=== PATIENT | female | born 1940 | race Caucasian/White ===

== ENCOUNTER 2016-06-14 16:32 | Emergency (ER) | payer MEDICARE, OTHER ==
[2016-06-14] MEDS ORDERED: LIDOCAINE 1% INJ-PF (10 MG/ML) 30 ML SDV INJ ONE (20:46)
[2016-06-14] MEDS ORDERED: DIPH/PERTUSS(ACELL)/TETANUS VAC/PF 0.5 ML SYR (>=10YO) IM ONE (20:46)
--- NOTE | 2016-06-14 22:55 | ER Document Report ---
ED General - General Chief Complaint: Laceration Stated Complaint: FALL/FACIAL LACERATION Mode of Arrival: Medic Information source: Patient Notes: This is a 76-year-old female who presents after falling today. She states that she was at the bus stop awaiting her granddaughter and she tripped over the curb and fell forward onto her forehead. She has a laceration above her left eyebrow and contusion around her left eye. She denies any loss of consciousness. This fall occurred at about 3:30 today. She's had no nausea or vomiting. She has had no vision changes. Chest pain or palpitations. She states she simply tripped over the curb. She is uncertain about her tetanus status. TRAVEL OUTSIDE OF THE [place] IN LAST 30 DAYS: No - Related Data Allergies/Adverse Reactions: No Known Allergies Allergy (Unverified 04/17/15 10:35) Past Medical History - General Information source: Patient - Social History Smoking Status: Former Smoker Family History: Reviewed & Not Pertinent - Past Medical History Cardiac Medical History: Reports: Hx Hypercholesterolemia, Hx Hypertension Endocrine Medical History: Reports: Hx Diabetes Mellitus Type 2 Past Surgical History: Reports: Hx Breast Surgery - biopsy-no lymph involvment - Immunizations Hx Diphtheria, Pertussis, Tetanus Vaccination: Yes Review of Systems - Review of Systems Notes: REVIEW OF SYSTEMS: CONSTITUTIONAL : Denies fever, chills, or sweats. Denies recent illness. EENT: Denies eye, ear, throat, or mouth pain or symptoms. Denies nasal or sinus congestion. CARDIOVASCULAR: Denies chest pain. RESPIRATORY: Denies cough, cold, or chest congestion. Denies shortness of breath, difficulty breathing, or wheezing. GASTROINTESTINAL: Denies abdominal pain. Denies nausea, vomiting, or diarrhea. GENITOURINARY: Denies difficulty urinating, painful urination, burning, frequency, or blood in urine. MUSCULOSKELETAL: Denies neck or back pain or joint pain or swelling. SKIN: Denies rash or skin lesions. HEMATOLOGIC : Denies easy bruising or bleeding. LYMPHATIC: Denies swollen, enlarged glands. NEUROLOGICAL: Denies altered mental status or loss of consciousness. Mild headache as per history of present illness PSYCHIATRIC: Denies anxiety or stress or depression. ALL OTHER SYSTEMS REVIEWED AND NEGATIVE. Physical Exam - Vital signs Vitals: Temp Pulse Resp BP Pulse Ox 97.8 F 67 20 150/61 H 97 06/14/16 16:55 06/14/16 16:55 06/14/16 16:55 06/14/16 16:55 06/14/16 16:55 - Notes Notes: PHYSICAL EXAMINATION: GENERAL: Well-appearing, well-nourished and in no acute distress. HEAD: Left-sided forehead contusion with 3 cm linear laceration above left eyebrow. She also has soft tissue swelling and ecchymosis beneath her left orbit. EYES: Pupils equal round and reactive to light, extraocular movements intact, sclera anicteric, conjunctiva are normal. ENT: nares patent, oropharynx clear without exudates. Moist mucous membranes. NECK: Normal range of motion, supple without lymphadenopathy, no midline tenderness to palpation LUNGS: Breath sounds clear to auscultation bilaterally and equal. No wheezes rales or rhonchi. HEART: Regular rate and rhythm without murmurs ABDOMEN: Soft, nontender, normoactive bowel sounds. No guarding, no rebound. EXTREMITIES: Normal range of motion, no pitting or edema. No trauma NEUROLOGICAL: Cranial nerves grossly intact. Normal speech, normal gait. Normal sensory, motor, exam PSYCH: Normal mood, normal affect. Course - Vital Signs Vital signs: Temp Pulse Resp BP Pulse Ox 98.7 F 62 16 125/61 98 06/14/16 23:34 06/14/16 23:34 06/14/16 23:34 06/14/16 23:34 06/14/16 23:34 Procedures - Laceration/Wound Repair Left Anterior Head Time completed: 22:20 Wound length (cm): 3 Wound's Depth, Shape: Superficial Laceration pre-procedure: Betadine prep applied, Shur-Clens applied Anesthetic type: 1% Lidocaine Volume Anesthetic (mLs): 1 Wound explored: Clean Irrigated w/ Saline (mLs): 40 Wound Repaired With: Dermabond Complications: No Adult Head Front/Back picture: 1 - 3 cm superficial linear laceration Discharge - Discharge Clinical Impression: Forehead contusion Qualifiers: Encounter type: initial encounter Qualified Code(s): S00.83XA - Contusion of other part of head, initial encounter Forehead laceration Qualifiers: Encounter type: initial encounter Qualified Code(s): S01.81XA - Laceration without foreign body of other part of head, initial encounter Fall involving sidewalk curb Qualifiers: Encounter type: initial encounter Qualified Code(s): W10.1XXA - Fall (on)(from ) sidewalk curb, initial encounter Condition: Stable Disposition: HOME, SELF-CARE Additional Instructions: Dermabond (Skin Adhesive Closure) Skin adhesive (such as Dermabond) is a quick-drying glue that remains slightly flexible while it holds wound edges together. It can substitute for stitches on some cuts. The film will usually fall off the skin after 5 to 10 days. Keep the wound area clean and dry. Do not soak or scrub the wound. Don't swim. You can shower briefly after 24 hours. Gently blot the area dry with a soft towel. Don't apply ointments. If there is a dressing, change it immediately if it gets wet. Do not place tape directly over the adhesive film, because the tape may pull the film off your skin as you remove it. Don't bump the wound area. If there's risk of injury, keep the area well- padded. Avoid stretching of the skin. Do not scratch or pick at the adhesive film. Avoid prolonged exposure to sunlight or tanning lamps. Return if there is increasing pain, swelling, redness, or drainage, or if the wound edges seem to open or separate. Contusion Your injury has resulted in a contusion -- a crushing of the deep tissues. No injury to important structures was detected during the physician's exam. Contusions vary in the amount of pain they cause, and in the length of time required for healing. Typically, the area will become bruised, and will remain painful to touch for two or three weeks. However, most patients are back to working and playing within a few days. After the initial period of rest and cold-packs, your symptoms (together with the doctor's recommendations) will determine how rapidly you can get back to full activity. Usually this means "do what feels okay, but don't do things that hurt." If re-examination was recommended, it's important to follow up as instructed. Call the doctor or return any time if pain increases, if swelling becomes severe, if you develop numbness or weakness in an injured extremity, or if any other alarming symptoms occur. TETANUS IMMUNIZATION GIVEN: You have been given an immunization against tetanus. Please record this in your records. In general, a booster is needed only once every 10 years. The tetanus shot protects against tetanus or "lockjaw," which is a complication of certain wound infections (the tetanus shot cannot protect against the actual infection). The immunization site may become warm and red due to local reaction. If this occurs, apply warm compresses and take aspirin or ibuprofen to reduce inflammation and discomfort. Return for evaluation if the reaction becomes severe. If you have been referred to another physician for follow-up care, call that physicians office for an appointment as you were instructed. If you experience a significant change in your laceration, or if you are concerned there may be an infection (swelling, redness, drainage, increasing tenderness, red streaks, tender lumps in the armpit or groin above the laceration, or fever) , return to the Emergency Department immediately re-evaluation.
[2016-06-14 23:35] VITALS: BP 125/61
== END 2016-06-14 23:35 | disposition home or self-care (01) ==
LOC: ER 16:32
PROC: 0HQ1XZZ Repair Face Skin, External Approach (ICD-10-PCS; principal; 2016-06-14)
DX: S00.83XA Contusion of other part of head, initial encounter (principal); S01.81XA Laceration without foreign body of other part of head, initial encounter; W10.1XXA Fall (on)(from) sidewalk curb, initial encounter
CPT/HCPCS: 70450; 70486; 90471; 90715; 99283

== ENCOUNTER → 2016-08-23 | Outpatient (CLI) | payer MEDICARE, OTHER ==
[2016-08-23 10:33] LABS: ABSOLUTE EOSINOPHILS # (AUTO) 0.2 10^3/uL (0.0-0.6); ABSOLUTE MONOCYTES (AUTO) 0.4 10^3/uL (0.1-1.4); ABSOLUTE NEUT (AUTO) 4.8 10^3/uL (1.7-8.2); BASOPHILS % (AUTO) 0.1 % (0-2); EOSINOPHILS % (AUTO) 2.2 % (0-6); HEMATOCRIT 31.2 % (36.0-47.0); HEMOGLOBIN 10.4 g/dL (12.0-15.5); MEAN CORPUSCULAR HEMOGLOBIN 30.9 pg (27.0-33.4); MEAN CORPUSCULAR HGB CONC 33.4 g/dL (32.0-36.0); MEAN CORPUSCULAR VOLUME 93 fl (80-97); MONOCYTES % (AUTO) 5.9 % (3-13); RED BLOOD COUNT 3.37 10^6/uL (3.72-5.28); RED CELL DISTRIBUTION WIDTH 15.7 % (11.5-14.0); SEGMENTED NEUTROPHILS % (AUTO) 64.8 % (42-78); WHITE BLOOD COUNT 7.3 10^3/uL (4.0-10.5)
[2016-08-23 10:58] LABS: ALANINE AMINOTRANSFERASE 37 U/L (9-52); ALBUMIN 3.6 g/dL (3.5-5.0); ALKALINE PHOSPHATASE 38 U/L (38-126); ANION GAP 13 (5-19); ASPARTATE AMINO TRANSFERASE 47 U/L (14-36); BILIRUBIN,DIRECT 0.2 mg/dL (0.0-0.4); BILIRUBIN,TOTAL 0.5 mg/dL (0.2-1.3); BLOOD UREA NITROGEN 25 mg/dL (7-20); CALCIUM 9.8 mg/dL (8.4-10.2); CARBON DIOXIDE 25 mmol/L (22-30); CHLORIDE 103 mmol/L (98-107); CHOLESTEROL 127.68 mg/dL (0-200); CREATININE RESULT 1.19 mg/dL (0.52-1.25); Direct HDL 19 mg/dL (>40); GLUCOSE 96 mg/dL (75-110); POTASSIUM 5.3 mmol/L (3.6-5.0); SODIUM 140.9 mmol/L (137-145); TOTAL PROTEIN 6.3 g/dL (6.3-8.2); TRIGLYCERIDES 230 mg/dL (<150)
[2016-08-23 11:10] LABS: DIRECT LDL 61 mg/dL (<100)
[2016-08-24 11:40] LABS: CREATININE URINE 59.8 mg/dL (Not Estab.); MICROALBUMIN URINE 95.9 ug/mL (Not Estab.)
== END ==
LOC: OD 09:22
PROVIDERS: ATTEND Family Medicine Geriatric Medicine
DX: E11.9 Type 2 diabetes mellitus without complications (principal); I10 Essential (primary) hypertension; E78.5 Hyperlipidemia, unspecified; Z79.899 Other long term (current) drug therapy
CPT/HCPCS: 36415; 80053; 80061; 82043; 82570; 83036; 84443; 85025

== ENCOUNTER → 2016-08-30 | Outpatient (CLI) | payer MEDICARE, OTHER | LOC: OD 09:45 | PROVIDERS: ATTEND Family Medicine Geriatric Medicine | DX: D64.9 Anemia, unspecified (principal); Z79.899 Other long term (current) drug therapy | CPT/HCPCS: 36415; 82728; 83540; 83550; 84466; 85045 ==

== ENCOUNTER → 2016-12-14 | Outpatient (CLI) | payer MEDICARE, OTHER ==
--- NOTE | 2016-12-14 11:18 | RADIOLOGY REPORT (SQ) ---
EXAM DESCRIPTION: SHOULDER RIGHT 2 OR MORE VIEWS COMPLETED DATE/TIME: 12/14/2016 11:00 am REASON FOR STUDY: RIGHT SHOULDER PAIN M25.511 PAIN IN RIGHT SHOULDER COMPARISON: None. NUMBER OF VIEWS: Three views. TECHNIQUE: Internal rotation, external rotation, and Y view images acquired of the right shoulder. LIMITATIONS: None. FINDINGS: MINERALIZATION: Normal. BONES: No acute fracture or dislocation. No worrisome bone lesions. No significant osteophytes. GLENOHUMERAL JOINT: No significant findings. ACROMIOCLAVICULAR JOINT: No large osteophytes. SOFT TISSUES: No calcifications. VISUALIZED RIBS, SPINE, AND LUNG: No other significant finding. OTHER: No other significant finding. IMPRESSION: NEGATIVE STUDY OF THE RIGHT SHOULDER. NO EXPLANATION FOR PAIN. TECHNICAL DOCUMENTATION: JOB ID: [id number] [employer]- All Rights Reserved
== END ==
LOC: OD 10:48
PROVIDERS: ATTEND Family Medicine Geriatric Medicine
DX: M25.511 Pain in right shoulder (principal)

== ENCOUNTER → 2017-01-18 | Outpatient (CLI) | payer MEDICARE, OTHER ==
--- NOTE | 2017-01-18 12:12 | RADIOLOGY REPORT (SQ) ---
EXAM DESCRIPTION: SACRUM AND COCCYX COMPLETED DATE/TIME: 01/18/2017 11:27 am REASON FOR STUDY: SPONDYLOLISTHESIS, LUMBAR REGION,LOW BACK PAIN M54.5 LOW BACK PAIN M43.16 SPONDY LOLISTHESIS, LUMBAR REGION COMPARISON: None. NUMBER OF VIEWS: Three views. TECHNIQUE: AP, lateral, and tilt views of the sacrum and coccyx. LIMITATIONS: None. FINDINGS: MINERALIZATION: Normal. BONES: No acute fracture or dislocation. No worrisome bone lesions. SOFT TISSUES: No soft tissue swelling. No foreign body. OTHER: No other significant finding. IMPRESSION: NEGATIVE STUDY OF THE SACRUM AND COCCYX. TECHNICAL DOCUMENTATION: JOB ID: [id number] [employer]- All Rights Reserved
--- NOTE | 2017-01-18 12:12 | RADIOLOGY REPORT (SQ) ---
EXAM DESCRIPTION: LUMBAR SPINE COMPLETE COMPLETED DATE/TIME: 01/18/2017 11:27 am REASON FOR STUDY: SPONDYLOLISTHESIS, LUMBAR REGION,LOW BACK PAIN M54.5 LOW BACK PAIN M43.16 SPONDY LOLISTHESIS, LUMBAR REGION COMPARISON: None. NUMBER OF VIEWS: Five views including obliques. TECHNIQUE: AP, lateral, oblique, and sacral radiographic images acquired of the lumbar spine. LIMITATIONS: None. FINDINGS: MINERALIZATION: Normal. SEGMENTATION: Normal. No transitional anatomy. ALIGNMENT: 6 mm anterolisthesis of L4 on L5. VERTEBRAE: Maintained height. No fracture or worrisome bone lesion. DISCS: Multilevel disc space narrowing with osteophytes. POSTERIOR ELEMENTS: Pedicles and facets are intact. No pars defect or posterior arch defects. Facet arthropathy is present. HARDWARE: None in the spine. PARASPINAL SOFT TISSUES: Normal. PELVIS: Intact as visualized. No fractures or worrisome bone lesions. SI joints intact. OTHER: No other significant finding. 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 MULTILEVEL DEGENERATIVE DISC DISEASE AND FACET ARTHROPATHY. TECHNICAL DOCUMENTATION: JOB ID: [id number] [employer]- All Rights Reserved
== END ==
LOC: OD 11:03
PROVIDERS: ATTEND Family Medicine Geriatric Medicine
DX: M43.16 Spondylolisthesis, lumbar region (principal); M54.5 Low back pain
CPT/HCPCS: 72110; 72220

== ENCOUNTER → 2017-01-24 | Outpatient (CLI) | payer MEDICARE, OTHER ==
--- NOTE | 2017-01-24 12:29 | WOMENS IMAGING REPORT ---
EXAM DESCRIPTION: BILAT SCREENING MAMMO W/CAD COMPLETED DATE/TIME: 01/24/2017 10:40 am REASON FOR STUDY: ROUTINE SCREENING; Z12.31 Z12.31 ENCNTR SCREEN MAMMOGRAM FOR MALIGNANT NEOPLASM O F WINIFRED COMPARISON: 2012, 2013 outside facility TECHNIQUE: Standard craniocaudal and mediolateral oblique views of each breast recorded using [employer] acquisition. LIMITATIONS: None. FINDINGS: No masses, calcifications or architectural distortion. No areas of suspicion. Read with the assistance of CAD. .[facility] - R2 Cenova Version 1.3 .[facility] Imaging - R2 Cenova Version 1.3 .[facility] Imaging - R2 Cenova Version 2.4 .[facility] [place] R2 Cenova Version 2.4 .[facility] - R2 [employer] Version 9.2 IMPRESSION: NORMAL MAMMOGRAM. BIRADS 1. BREAST DENSITY: a. The breasts are almost entirely fatty. BIRAD: 1 NEGATIVE RECOMMENDATION: ROUTINE SCREENING COMMENT: The patient has been notified of the results by letter per SA requirements. Additional no tification policies are in place for contacting patient with suspicious or incomplete findings. Quality ID #[id number]: The [employer] recommends an annual screening mammogram for women aged 40 years or over. This facility utilizes a reminder system to ensure that all patients receive reminder letters, and/or direct phone calls for appointments. This includes reminders for routine scr eening mammograms, diagnostic mammograms, or other Breast Imaging Interventions when appropriate. Th is patient will be placed in the appropriate reminder system. The [employer] (ACR) has developed recommendations for screening MRI of the breast s in certain patient populations, to be used in conjunction with mammography. Breast MRI surveillanc e may be appropriate for women with more than 20% lifetime risk of developing breast cancer as deter mined by genetic testing, significant family history of the disease, or history of mantle radiation f or Hodgkins Disease. ACR Practice Guidelines 2008. TECHNICAL DOCUMENTATION: FINDING NUMBER: (1) ASSESSMENT: (1) JOB ID: [id number] [employer]- All Rights Reserved
== END ==
LOC: WI 09:57
PROVIDERS: ATTEND Family Medicine Geriatric Medicine
DX: Z12.31 Encounter for screening mammogram for malignant neoplasm of breast (principal)
CPT/HCPCS: 77067; G0202

== ENCOUNTER → 2017-01-31 | Outpatient (CLI) | payer MEDICARE, OTHER ==
--- NOTE | 2017-01-31 18:04 | RADIOLOGY REPORT (SQ) ---
EXAM DESCRIPTION: MRI LUMBAR SPINE WITHOUT COMPLETED DATE/TIME: 01/31/2017 2:20 pm REASON FOR STUDY: SPONDYLOLISTHESIS, SITE UNSPECIFIED M43.10 SPONDYLOLISTHESIS, SITE UNSPECIFIED COMPARISON: Radiographs 01/18/2017 TECHNIQUE: Sagittal and Axial imaging includes T1, T2, STIR and gradient echo sequences. Coronal T2 imaging. LIMITATIONS: None. FINDINGS: VISUALIZED UPPER ABDOMEN: Limited evaluation. No acute or suspicious findings suggested. SEGMENTATION: No transitional anatomy. The lowest well-developed disc space is labeled L5-S1. ALIGNMENT: There is grade 1 anterolisthesis of L4 on L5. VERTEBRAE: Intact. BONE MARROW: There are mild Modic changes in the vertebral endplates at L2-3, L3-4, and L4-5. DISC SIGNAL: Decreased signal intensity is seen L2-S1. These disc spaces are narrowed. POSTERIOR ELEMENTS: Generally intact. Pars defects are suggested at L4. HARDWARE: None in the spine. CORD AND CONUS: Normal in size and signal intensity. Conus at L1. SOFT TISSUES: No aortic aneurysm seen. No bulky retroperitoneal adenopathy or mass. No paraspinal mas s or fluid. L1-L2: No significant spinal stenosis or exit foraminal stenosis. L2-L3: Mild concentric disc bulging with no significant central canal or foraminal stenosis L3-L4: Moderate concentric disc bulging with mild narrowing of the inferior recesses of the neural fo ramina bilaterally. No significant central canal stenosis. L4-L5: There is unroofing of the disc secondary to anterolisthesis. There is narrowing of the inferi or recesses of the neural foramina bilaterally, left more than right. Moderate foraminal stenosis. Moderate central canal stenosis. L5-S1: No significant spinal stenosis or exit foraminal stenosis. LOWER THORACIC: Incompletely imaged. No stenosis seen. SACRUM: Visualized upper sacrum intact. OTHER: No other significant findings. IMPRESSION: 1. Anterolisthesis of L4 on L5 with suggestion of bilateral pars defects. 2. Multilevel disc bulge with foraminal and central canal stenoses as described above. The most sig nificant findings are at L4-5. TECHNICAL DOCUMENTATION: JOB ID: [id number]- All Rights Reserved
== END ==
LOC: RAD 13:18
PROVIDERS: ATTEND Family Medicine
DX: M43.10 Spondylolisthesis, site unspecified (principal)
CPT/HCPCS: 72148

== ENCOUNTER → 2017-03-09 | Outpatient (CLI) | payer MEDICARE, OTHER ==
--- NOTE | 2017-03-09 13:39 | RADIOLOGY REPORT (SQ) ---
EXAM DESCRIPTION: KNEE RIGHT 4 VIEWS COMPLETED DATE/TIME: 03/09/2017 1:02 pm REASON FOR STUDY: PAIN IN RIGHT KNEE M25.561 PAIN IN RIGHT KNEE COMPARISON: None. NUMBER OF VIEWS: Four views. TECHNIQUE: AP, lateral, and both oblique radiographic images acquired of the right knee. LIMITATIONS: None. FINDINGS: MINERALIZATION: Normal. BONES: No acute fracture or dislocation. No worrisome bone lesions. JOINT: Total knee replacement. SOFT TISSUES: No soft tissue swelling. No radio-opaque foreign body. OTHER: No other significant finding. IMPRESSION: Total knee replacement with no acute abnormality. TECHNICAL DOCUMENTATION: JOB ID: [id number] [employer]- All Rights Reserved
== END ==
LOC: OD 12:48
PROVIDERS: ATTEND Family Medicine Geriatric Medicine
DX: M25.561 Pain in right knee (principal); Z96.653 Presence of artificial knee joint, bilateral

== ENCOUNTER → 2017-03-24 | Day surgery (SDC) | payer MEDICARE, OTHER ==
[~2017-03-24] MED LIST: BUPIVACAINE HCL 0.5 % INJ/PF 30 ML SDV ONE
--- NOTE | 2017-03-24 12:53 | Operative Report ---
PREOPERATIVE DIAGNOSIS: Spondylolisis without myopathy or radiculopathy M47.818 POSTOPERATIVE DIAGNOSIS:Spondylolisis without myopathy or radiculopathy M47.818 PROCEDURE: 1. Radiofrequency Ablation of left L5 dorsal Ramus 2. Sacroiliac Joint Ablation - Lateral Branches of left S1, S2, S3 DATE OF PROCEDURE: March 24, 2017 ANESTHESIA: Local COMPLICATIONS: None CONSENT: A full description of the procedure was provided including benefits as well as possible complications. All questions were answered and informed consent was given and signed. ASA guidelines for fasting were verified prior to sedation. PROCEDURE IN DETAIL The patient was brought into the fluoroscopy suite and carefully assisted into the prone position on the fluoroscopy table and allowed to adjust to a position of comfort. A grounding pad was placed on the right thigh. The low back and buttocks were widely prepped with a chloraprep solution, allowed to air dry and draped in standard sterile surgical fashion. Local anesthesia was provided by 12 mL of 1 % lidocaine delivered with a 25 g needle. PROCEDURE #1: Radiofrequency Ablation of Dorsal Ramus of left L5. A 17g 100mm radiofrequency introducer needle was placed to the planned anatomic target, guided with intermittent fluoroscopy with a perpendicular approach, to terminally place at the left sacral ala. The stylets were removed and the radiofrequency probes with a 4mm active tip were then inserted. Needle tip position of the probes were verified in the AP, oblique, and lateral views. At each site, the medial branch nerve was stimulated at 2Hz to a maximum of 1- 2volts determined to finalize safe needle and electrode placement. The patient was awake and responsive during this portion of the procedure. Each target was anesthetized with 2mL of 2 % Sensorcaine anesthesia for lesioning and then each target was lesioned at 80 degrees Celsius for 2 minutes and 30 seconds. Tissue impedences were noted to be between 250 and 500 Ohms. PROCEDURE #2: Radiofrequency Ablation of left S1, S2, S3 Lateral Branches Using the AP fluoroscopic view for visualization of the lateral PSFA as defined by the pre-placed 27-gauge Quincke needles, appropriate skin starting positions were defined. Using the PSFA as a "clock-face", the positions were: S1; Right = 1 oclock, 3 oclock and 5 oclock S2; Right = 1 oclock, 3 oclock and 5 oclock S3; Right = 1 oclock, 5 oclock Using fluoroscopic guidance, a 17g introducer needle was inserted sequentially onto the target positions described above until the introducer tip touched the bony surface of the sacrum. The stylet was withdrawn from the introducer and the radiofrequency probe with a 4 mm active tip was fully inserted into the introducer. A lateral view was obtained for standard reference. At each of the targets, needle placement was verified with the use of multi-planar fluoroscopy. The needle tip position was approximately 7 - 10mm lateral to the PSFA as determined by using an Epsilon ruler. At each site, the lateral branch nerve was stimulated at 2 Hz to a maximum of 1- 2 volts determined to finalize safe needle and electrode placement. The patient was awake and responsive during this portion of the procedure. Each target was anesthetized with 2 mL of 2 % Sensorcaine anesthesia for lesioning and then each target was lesioned at 80 degrees Celsius for 2 minutes and 30 seconds. Tissue impedences were noted to be between 250- 500 Ohms. At the conclusion of the lesioning the needles were removed and bandages placed over the needle placement sites and the patient returned to the supine position on a stretcher and transported to the recovery room without hemodynamic, neurologic, or allergic reactions. Fluoroscopic images were printed for hard copy recording and digitally archived. FLUOROSCOPIC INTERPRETATION: Appropriate epidurogram obtained. Appropriate lesioning of the 10 targets noted. POST PROCEDURE EVALUATION: The patient was comfortable in the recovery room. The patient is aware that pain may worsen before remitting and 4 6 weeks may be required prior to the onset of pain relief. IMPRESSION: 1. Technically successful sacral lateral branch, lumbar dorsal ramus for denervation from L5-S3 on the left without complication. 2. RTC in 2 weeks. 3. Estimated Blood Loss: None 4. Fluoroscopy time: 30 seconds
== END ==
LOC: RAD 12:27
PROVIDERS: ATTEND Family Medicine
PROC: 3E0T3TZ Introduction of Destructive Agent into Peripheral Nerves and Plexi, Percutaneous Approach (ICD-10-PCS; principal; 2017-03-24)
DX: M47.816 Spondylosis without myelopathy or radiculopathy, lumbar region (principal); M47.818 Spondylosis without myelopathy or radiculopathy, sacral and sacrococcygeal region
CPT/HCPCS: 64635

== ENCOUNTER → 2017-06-03 | Outpatient (CLI) | payer MEDICARE, OTHER ==
[2017-06-03 10:45] LABS: ALANINE AMINOTRANSFERASE 28 U/L (9-52); ANION GAP 15 (5-19); ASPARTATE AMINO TRANSFERASE 34 U/L (14-36); BLOOD UREA NITROGEN 27 mg/dL (7-20); CALCIUM 10.4 mg/dL (8.4-10.2); CARBON DIOXIDE 26 mmol/L (22-30); CHLORIDE 101 mmol/L (98-107); GLUCOSE 104 mg/dL (75-110); POTASSIUM 5.1 mmol/L (3.6-5.0); SODIUM 141.8 mmol/L (137-145)
[2017-06-04 09:45] LABS: CHOLESTEROL 164.73 mg/dL (0-200); TRIGLYCERIDES 255 mg/dL (<150)
[2017-06-04 09:56] LABS: DIRECT LDL 107 mg/dL (<100)
[2017-06-04 11:38] LABS: MICROALBUMIN URINE 76.6 ug/mL (Not Estab.)
== END ==
LOC: OD 09:19
PROVIDERS: ATTEND Family Medicine Geriatric Medicine
DX: E11.21 Type 2 diabetes mellitus with diabetic nephropathy (principal); I10 Essential (primary) hypertension; E78.5 Hyperlipidemia, unspecified; Z79.899 Other long term (current) drug therapy
CPT/HCPCS: 36415; 80048; 80061; 82043; 82570; 83036; 84450; 84460

== ENCOUNTER → 2017-06-08 | Outpatient (CLI) | payer MEDICARE, OTHER ==
[2017-06-08 10:06] LABS: ANION GAP 13 (5-19); BLOOD UREA NITROGEN 24 mg/dL (7-20); CALCIUM 9.9 mg/dL (8.4-10.2); CARBON DIOXIDE 26 mmol/L (22-30); CHLORIDE 102 mmol/L (98-107); GLUCOSE 112 mg/dL (75-110); POTASSIUM 5.2 mmol/L (3.6-5.0)
== END ==
LOC: OD 09:00
PROVIDERS: ATTEND Family Medicine Geriatric Medicine
DX: E83.52 Hypercalcemia (principal); E87.6 Hypokalemia
CPT/HCPCS: 36415; 80048; 83970

== ENCOUNTER → 2017-06-13 | Outpatient (CLI) | payer MEDICARE, OTHER ==
[2017-06-13 13:52] LABS: APPEARANCE,URINE CLEAR; BILIRUBIN,URINE NEGATIVE (NEGATIVE); COLOR,URINE STRAW; GLUCOSE, URINE NEGATIVE (NEGATIVE); KETONES,URINE NEGATIVE (NEGATIVE); LEUKOCYTE ESTERASE,URINE NEGATIVE (NEGATIVE); NITRITE,URINE NEGATIVE (NEGATIVE); PROTEIN,URINE NEGATIVE (NEGATIVE); UROBILINOGEN,URINE NEGATIVE mg/dL (<2.0)
[2017-06-13 13:55] LABS: HEMATOCRIT 34.1 % (36.0-47.0); HEMOGLOBIN 11.6 g/dL (12.0-15.5); MEAN CORPUSCULAR HEMOGLOBIN 31.9 pg (27.0-33.4); MEAN CORPUSCULAR VOLUME 94 fl (80-97); PLATELET COUNT 376 10^3/uL (150-450); RED BLOOD COUNT 3.63 10^6/uL (3.72-5.28); RED CELL DISTRIBUTION WIDTH 14.2 % (11.5-14.0); WHITE BLOOD COUNT 6.4 10^3/uL (4.0-10.5)
[2017-06-13 14:11] LABS: ANION GAP 12 (5-19); BLOOD UREA NITROGEN 21 mg/dL (7-20); CALCIUM 10.2 mg/dL (8.4-10.2); CARBON DIOXIDE 27 mmol/L (22-30); CHLORIDE 103 mmol/L (98-107); GLUCOSE 85 mg/dL (75-110); POTASSIUM 4.7 mmol/L (3.6-5.0); SODIUM 141.6 mmol/L (137-145)
[2017-06-13 14:22] LABS: UR PRO/CREAT RATIO RESULT 0.6 mg/mg (0.0-0.2); URINE PROTEIN 26.4 mg/dL (<12)
== END ==
LOC: OD 12:38
PROVIDERS: ATTEND Internal Medicine Nephrology
DX: E11.22 Type 2 diabetes mellitus with diabetic chronic kidney disease (principal); I12.9 Hypertensive chronic kidney disease with stage 1 through stage 4 chronic kidney disease, or unspecified chronic kidney disease; N18.9 Chronic kidney disease, unspecified; R80.9 Proteinuria, unspecified; M10.00 Idiopathic gout, unspecified site; E83.52 Hypercalcemia; Z79.899 Other long term (current) drug therapy
CPT/HCPCS: 36415; 80048; 81001; 82570; 84132; 84156; 84550; 85027

== ENCOUNTER → 2017-09-01 | Outpatient (CLI) | payer MEDICARE, OTHER ==
[2017-09-01 12:02] LABS: ALANINE AMINOTRANSFERASE 27 U/L (9-52); ASPARTATE AMINO TRANSFERASE 29 U/L (14-36); CHOLESTEROL 153.77 mg/dL (0-200); TRIGLYCERIDES 292 mg/dL (<150)
[2017-09-01 12:13] LABS: DIRECT LDL 83 mg/dL (<100)
[2017-09-01 12:16] LABS: VLDL CHOLESTEROL 58.4 mg/dL (10-31)
== END ==
LOC: OD 09:35
PROVIDERS: ATTEND Family Medicine Geriatric Medicine
DX: E78.5 Hyperlipidemia, unspecified (principal); Z79.899 Other long term (current) drug therapy
CPT/HCPCS: 36415; 80061; 84450; 84460

== ENCOUNTER → 2017-09-08 | Outpatient (CLI) | payer MEDICARE, OTHER ==
--- NOTE | 2017-09-08 12:45 | RADIOLOGY REPORT (SQ) ---
EXAM DESCRIPTION: ANKLE LEFT COMPLETE COMPLETED DATE/TIME: 09/08/2017 11:54 am REASON FOR STUDY: PAIN IN LEFT ANKLE AND JOINTS OF LEFT FOOT M25.572 PAIN IN LEFT ANKLE AND JOINTS OF LEFT FOOT COMPARISON: None. NUMBER OF VIEWS: Three views. TECHNIQUE: AP, lateral, and oblique radiographic images acquired of the left ankle. LIMITATIONS: None. FINDINGS: MINERALIZATION: Normal. BONES: No acute fracture or dislocation. No worrisome bone lesions. JOINTS: No effusions. SOFT TISSUES: No soft tissue swelling. No foreign body. OTHER: Plantar spurring is identified. IMPRESSION: NO RADIOGRAPHIC EVIDENCE OF ACUTE INJURY. Other findings as noted above. TECHNICAL DOCUMENTATION: JOB ID: [id number] [employer]- All Rights Reserved Reading location - IP/workstation name: [email or web address]
== END ==
LOC: OD 11:41
PROVIDERS: ATTEND Family Medicine Geriatric Medicine
DX: M25.572 Pain in left ankle and joints of left foot (principal)

== ENCOUNTER → 2017-10-04 | Outpatient (CLI) | payer MEDICARE, OTHER ==
[2017-10-04 10:10] LABS: HEMATOCRIT 33.3 % (36.0-47.0); HEMOGLOBIN 11.1 g/dL (12.0-15.5); MEAN CORPUSCULAR HEMOGLOBIN 31.2 pg (27.0-33.4); MEAN CORPUSCULAR HGB CONC 33.3 g/dL (32.0-36.0); MEAN CORPUSCULAR VOLUME 94 fl (80-97); PLATELET COUNT 352 10^3/uL (150-450); RED BLOOD COUNT 3.55 10^6/uL (3.72-5.28); RED CELL DISTRIBUTION WIDTH 14.3 % (11.5-14.0); WHITE BLOOD COUNT 4.2 10^3/uL (4.0-10.5)
[2017-10-04 10:49] LABS: ANION GAP 14 (5-19); BLOOD UREA NITROGEN 31 mg/dL (7-20); CARBON DIOXIDE 26 mmol/L (22-30); CHLORIDE 104 mmol/L (98-107); GLUCOSE 118 mg/dL (75-110); POTASSIUM 5.2 mmol/L (3.6-5.0); SODIUM 144.3 mmol/L (137-145); URIC ACID 4.8 mg/dL (2.5-7.5)
[2017-10-04 11:23] LABS: APPEARANCE,URINE CLEAR; BILIRUBIN,URINE NEGATIVE (NEGATIVE); COLOR,URINE STRAW; GLUCOSE, URINE NEGATIVE (NEGATIVE); KETONES,URINE NEGATIVE (NEGATIVE); LEUKOCYTE ESTERASE,URINE TRACE (NEGATIVE); NITRITE,URINE NEGATIVE (NEGATIVE); PROTEIN,URINE NEGATIVE (NEGATIVE); URINE SPECIFIC GRAVITY 1.008; UROBILINOGEN,URINE NEGATIVE mg/dL (<2.0)
[2017-10-05 11:40] LABS: CREATININE URINE 25.3 mg/dL (Not Estab.); MICROALBUMIN URINE 55.8 ug/mL (Not Estab.)
== END ==
LOC: OD 08:27
PROVIDERS: ATTEND Internal Medicine Nephrology
DX: N18.3 Chronic kidney disease, stage 3 (moderate) (principal); R80.9 Proteinuria, unspecified; E11.9 Type 2 diabetes mellitus without complications; M10.00 Idiopathic gout, unspecified site
CPT/HCPCS: 36415; 80048; 81001; 82043; 82570; 84550; 85027

== ENCOUNTER → 2017-11-16 | Outpatient (CLI) | payer MEDICARE, OTHER ==
[2017-11-16 10:23] LABS: ABSOLUTE BASOPHILS # (AUTO) 0.1 10^3/uL (0.0-0.2); ABSOLUTE EOSINOPHILS # (AUTO) 0.1 10^3/uL (0.0-0.6); ABSOLUTE LYMPHOCYTES (AUTO) 1.4 10^3/uL (0.5-4.7); ABSOLUTE MONOCYTES (AUTO) 0.3 10^3/uL (0.1-1.4); ABSOLUTE NEUT (AUTO) 3.5 10^3/uL (1.7-8.2); BASOPHILS % (AUTO) 1.1 % (0-2); EOSINOPHILS % (AUTO) 2.5 % (0-6); HEMATOCRIT 32.7 % (36.0-47.0); LYMPHOCYTES % (AUTO) 26.2 % (13-45); MEAN CORPUSCULAR HEMOGLOBIN 31.6 pg (27.0-33.4); MEAN CORPUSCULAR HGB CONC 33.7 g/dL (32.0-36.0); MEAN CORPUSCULAR VOLUME 94 fl (80-97); MONOCYTES % (AUTO) 6.1 % (3-13); PLATELET COUNT 363 10^3/uL (150-450); RED BLOOD COUNT 3.49 10^6/uL (3.72-5.28); RED CELL DISTRIBUTION WIDTH 14.9 % (11.5-14.0); SEGMENTED NEUTROPHILS % (AUTO) 64.1 % (42-78); TOTAL CELLS COUNTED % (AUTO) 100 %; WHITE BLOOD COUNT 5.4 10^3/uL (4.0-10.5)
[2017-11-16 10:44] LABS: ALANINE AMINOTRANSFERASE 30 U/L (9-52); ANION GAP 11 (5-19); BLOOD UREA NITROGEN 26 mg/dL (7-20); CALCIUM 9.6 mg/dL (8.4-10.2); CARBON DIOXIDE 28 mmol/L (22-30); CHLORIDE 104 mmol/L (98-107); CHOLESTEROL 135.08 mg/dL (0-200); GLUCOSE 106 mg/dL (75-110); POTASSIUM 4.9 mmol/L (3.6-5.0); SODIUM 142.9 mmol/L (137-145); TRIGLYCERIDES 257 mg/dL (<150); URIC ACID 4.7 mg/dL (2.5-7.5)
[2017-11-16 10:54] LABS: DIRECT LDL 68 mg/dL (<100)
[2017-11-16 10:58] LABS: VLDL CHOLESTEROL 51.4 mg/dL (10-31)
== END ==
LOC: OD 09:35
PROVIDERS: ATTEND Family Medicine Geriatric Medicine
DX: E11.21 Type 2 diabetes mellitus with diabetic nephropathy (principal); I10 Essential (primary) hypertension; E78.5 Hyperlipidemia, unspecified; Z79.899 Other long term (current) drug therapy
CPT/HCPCS: 36415; 80048; 80061; 84460; 84550; 85025

== ENCOUNTER → 2018-01-26 | Outpatient (CLI) | payer MEDICARE, OTHER ==
--- NOTE | 2018-01-26 11:21 | WOMENS IMAGING REPORT ---
EXAM DESCRIPTION: BILAT SCREENING MAMMO W/CAD COMPLETED DATE/TIME: 01/26/2018 10:07 am REASON FOR STUDY: SCREENING MAMMO Z12.31 ENCNTR SCREEN MAMMOGRAM FOR MALIGNANT NEOPLASM OF WINIFRED COMPARISON: 2016 TECHNIQUE: Standard craniocaudal and mediolateral oblique views of each breast recorded using [employer] acquisition. LIMITATIONS: None. FINDINGS: Findings present which are benign by mammographic criteria. No suspicious masses, calcifi cations or architectural distortion. Pertinent benign findings: Benign bilateral breast parenchymal calcifications Read with the assistance of CAD. .[facility] - R2 Cenova Version 1.3 .[facility] Imaging - R2 Cenova Version 1.3 .[facility] - R2 Cenova Version 2.4 .[facility] [place] Cenova Version 2.4 .[facility] - R2 [employer] Version 9.2 Benign mammographic findings may include one or more of the following: Smooth masses, popcorn/rim/co arse calcifications, asymmetries, post-procedure changes, and lesions with long-standing stability. IMPRESSION: BENIGN MAMMOGRAPHIC FINDINGS. BIRADS 2 BREAST DENSITY: b. There are scattered areas of fibroglandular density. BIRAD: 2 BENIGN FINDING(S) RECOMMENDATION: ROUTINE SCREENING Please continue yearly bilateral screening mammography/tomosynthesis in January 2019 COMMENT: The patient has been notified of the results by letter per SA requirements. Additional no tification policies are in place for contacting patient with suspicious or incomplete findings. Quality ID #[id number]: The [employer] recommends an annual screening mammogram for women aged 40 years or over. This facility utilizes a reminder system to ensure that all patients receive reminder letters, and/or direct phone calls for appointments. This includes reminders for routine scr eening mammograms, diagnostic mammograms, or other Breast Imaging Interventions when appropriate. Th is patient will be placed in the appropriate reminder system. The [employer] (ACR) has developed recommendations for screening MRI of the breast s in certain patient populations, to be used in conjunction with mammography. Breast MRI surveillanc e may be appropriate for women with more than 20% lifetime risk of developing breast cancer as deter mined by genetic testing, significant family history of the disease, or history of mantle radiation f or Hodgkins Disease. ACR Practice Guidelines 2008. TECHNICAL DOCUMENTATION: FINDING NUMBER: (1) ASSESSMENT: (1) JOB ID: [id number] [employer].- All Rights Reserved Reading location - IP/workstation name: [email or web address]
== END ==
LOC: WI 10:38
PROVIDERS: ATTEND Internal Medicine
DX: Z12.31 Encounter for screening mammogram for malignant neoplasm of breast (principal)
CPT/HCPCS: 77067

== ENCOUNTER 2018-02-19 13:13 | Emergency (ER) | payer MEDICARE, OTHER ==
[2018-02-19] MEDS ORDERED: NORMAL SALINE 500 ML IV ONE (13:35)
[2018-02-19] MEDS ORDERED: ONDANSETRON HCL INJ/PF 4 MG/2 ML SDV IV ONE (13:35)
--- NOTE | 2018-02-19 13:36 | ER Document Report ---
ED Medical Screen (RME) - General Chief Complaint: Nausea/Vomiting/Diarrhea Stated Complaint: DIARRHEA Time Seen by Provider: 02/19/18 13:26 Notes: Patient is a 77-year-old female that presents to the emergency department for chief complaint of abdominal cramping, nausea, vomiting and diarrhea. ROS: Unless otherwise stated in this report the patient's positive and negative responses for review of systems for constitutional, eyes, ENT, cardiovascular, respiratory, gastrointestinal, neurological, genitourinary, musculoskeletal, and integumentary systems and related systems to the presenting problem are either as stated in the HPI or were not pertinent or were negative for the symptoms and/or complaints related to the presenting medical problem. PHYSICAL EXAMINATION: Vital signs reviewed. GENERAL: Well-appearing, well-nourished and in no acute distress. HEAD: Atraumatic, normocephalic. EYES: Pupils equal round extraocular movements intact, conjunctiva are normal. ENT: Nares patent NECK: Normal range of motion CV: Heart regular rate and rhythm LUNGS: No respiratory distress Musculoskeletal: Normal range of motion NEUROLOGICAL: Normal speech PSYCH: Normal mood, normal affect. MDM: Patient seen and examined for rapid initial assessment. Vital signs reviewed. A comprehensive ED assessment and evaluation of the patient, analysis of test results and completion of the medical decision making process will be conducted by additional ED providers. *Note is created using voice recognition software and may contain spelling, syntax or grammatical errors. TRAVEL OUTSIDE OF THE [place] IN LAST 30 DAYS: No - Related Data Allergies/Adverse Reactions: No Known Allergies Allergy (Unverified 04/17/15 10:35) Past Medical History - Past Medical History Cardiac Medical History: Reports: Hx Hypercholesterolemia, Hx Hypertension Endocrine Medical History: Reports: Hx Diabetes Mellitus Type 2 Past Surgical History: Reports: Hx Breast Surgery - biopsy-no lymph involvment - Immunizations Hx Diphtheria, Pertussis, Tetanus Vaccination: Yes Physical Exam - Vital signs Vitals: Pulse Resp BP Pulse Ox 79 20 138/65 H 98 02/19/18 13:28 02/19/18 13:28 02/19/18 13:28 02/19/18 13:28 Course - Vital Signs Vital signs: Temp Pulse Resp BP Pulse Ox 79 20 138/65 H 98 02/19/18 13:28 02/19/18 13:28 02/19/18 13:28 02/19/18 13:28 Doctor's Discharge - Discharge Referrals: SORAIDA BERNSTEIN MD [Primary Care Provider] - Follow up as needed
--- NOTE | 2018-02-19 14:31 | ER Document Report ---
ED General - General Chief Complaint: Nausea/Vomiting/Diarrhea Stated Complaint: DIARRHEA Time Seen by Provider: 02/19/18 13:26 TRAVEL OUTSIDE OF THE [place] IN LAST 30 DAYS: No - HPI Notes: Patient is a 77-year-old female that presents to the emergency department for chief complaint of vomiting malaise and abdominal pain. Patient has had nausea vomiting and malaise for the last few weeks. On she was prescribed doxycycline at an urgent care for pneumonia. She finished her 10-day course of doxycycline and continued to feel ill. She was again seen at an urgent care on 02/10 and given Nasonex for URI. She was told her pneumonia had completely resolved. Shortly after that appointment she started having increased nausea and vomiting. She is having a hard time keeping her medications down because she gags when swallowing them. She reports suprapubic crampy abdominal pain that started in the last few days. The pain is constant. She denies any aggravating or relieving factors. She denies any dysuria or urinary frequency. She is not having any cough, congestion, chest pain or shortness of breath. Patient states she just generally is not feeling better. She also reports diarrhea 3 days ago. Past Medical History: Diabetes, hypertension, hyperlipidemia, gout Past Surgical History: Bilateral knee replacements, appendectomy Social History: Occasional alcohol. Denies tobacco and drug use Family History: Reviewed and noncontributory for presenting illness Allergies: Reviewed, see documented allergy list. REVIEW OF SYSTEMS: CONSTITUTIONAL : No fever No chills No diaphoresis No recent illness EENT: No vision changes congestion No sore throat CARDIOVASCULAR: No chest pain No palpitations RESPIRATORY: No shortness of breath No cough No difficulty breathing GASTROINTESTINAL: abdominal pain nausea vomiting diarrhea GENITOURINARY: No dysuria No hematuria No difficulty urinating MUSCULOSKELETAL: No back pain No leg pain No arm pain SKIN: No rashes No lesions LYMPHATIC: No swollen, enlarged glands. NEUROLOGICAL: No lightheadedness No headache No weakness No paresthesias PSYCHIATRIC: No anxiety No depression PHYSICAL EXAMINATION: Vital signs reviewed, nursing noted reviewed. GENERAL: Well-appearing, well-nourished and in no acute distress. HEAD: Atraumatic, normocephalic. EYES: Eyes appear normal, extraocular movements intact, sclera anicteric, conjunctiva are normal. ENT: nares patent, oropharynx clear without exudates. Moist mucous membranes. NECK: Normal range of motion, supple without lymphadenopathy LUNGS: Breath sounds clear to auscultation bilaterally and equal. No wheezes rales or rhonchi. HEART: Regular rate and rhythm without murmurs ABDOMEN: Soft, nontender, normoactive bowel sounds. No rebound, guarding, or rigidity. No masses appreciated. EXTREMITIES: Nontender, good range of motion, no pitting or edema. NEUROLOGICAL: No focal neurological deficits. Moves all extremities spontaneously Motor and sensory grossly intact on exam. PSYCH: Normal mood, normal affect. SKIN: Warm, Dry, normal turgor, no rashes or lesions noted on exposed skin - Related Data Allergies/Adverse Reactions: acetaminophen [From Darvocet-N] Allergy (Verified 02/19/18 13:47) propoxyphene [From Darvocet-N] Allergy (Verified 02/19/18 13:47) shrimp Adverse Reaction (Verified 02/19/18 13:47) Past Medical History - Social History Smoking Status: Former Smoker Frequency of alcohol use: Occasional Drug Abuse: None Family History: Reviewed & Not Pertinent Patient has suicidal ideation: No Patient has homicidal ideation: No - Past Medical History Cardiac Medical History: Reports: Hx Hypercholesterolemia, Hx Hypertension Endocrine Medical History: Reports: Hx Diabetes Mellitus Type 2 Renal/ Medical History: Denies: Hx Peritoneal Dialysis Past Surgical History: Reports: Hx Breast Surgery - biopsy-no lymph involvment - Immunizations Hx Diphtheria, Pertussis, Tetanus Vaccination: Yes Review of Systems - Review of Systems Notes: Dictated Physical Exam - Vital signs Vitals: Pulse Resp BP Pulse Ox 79 20 138/65 H 98 02/19/18 13:28 02/19/18 13:28 02/19/18 13:28 02/19/18 13:28 - Notes Notes: Dictated Course - Re-evaluation Re-evalutation: 02/19/18 14:31 Vitals reviewed. Nursing notes reviewed. EKG shows no acute ischemic changes. 02/19/18 16:53 Patient reevaluated. She is still hemodynamically stable. She has no sepsis criteria. Chest x-ray shows possible pneumonia and UA is consistent with urinary tract infection. Patient will be started on Levaquin to treat both infections. Urine culture was sent. She is nontoxic-appearing is stable for close outpatient follow-up. She will return to the emergency room for any new or worsening symptoms including fevers and difficulty breathing. Patient's family is in agreement with this plan. She will follow with her PCP for reevaluation in 2-3 days. Discharged home in stable condition. Laboratory 02/19/18 02/19/18 02/19/18 14:23 14:23 14:23 WBC 6.8 RBC 3.96 Hgb 12.2 Hct 36.8 MCV 93 MCH 30.8 MCHC 33.1 RDW 15.0 H Plt Count 387 Seg Neutrophils % 62.9 Lymphocytes % 25.6 Monocytes % 7.6 Eosinophils % 2.6 Basophils % 1.3 Absolute Neutrophils 4.3 Absolute Lymphocytes 1.7 Absolute Monocytes 0.5 Absolute Eosinophils 0.2 Absolute Basophils 0.1 Sodium 137.9 Potassium 4.7 Chloride 100 Carbon Dioxide 25 Anion Gap 13 BUN 21 H Creatinine 1.26 H Est GFR ( Amer) 50 L Est GFR (Non-Af Amer) 41 L Glucose 87 Calcium 9.5 Total Bilirubin 0.7 Direct Bilirubin 0.5 H Neonat Total Bilirubin Not Reportable Neonat Direct Bilirubin Not Reportable Neonat Indirect Bili Not Reportable AST 148 H ALT 112 H Alkaline Phosphatase 70 Troponin I < 0.012 Total Protein 6.5 Albumin 3.4 L Lipase 113.1 Urine Color Urine Appearance Urine pH Ur Specific Creighton Urine Protein Urine Glucose (UA) Urine Ketones Urine Blood Urine Nitrite Urine Bilirubin Urine Urobilinogen Ur Leukocyte Esterase Urine WBC (Auto) Urine RBC (Auto) Squamous Epi Cells Auto Urine Mucus (Auto) Urine Ascorbic Acid 02/19/18 16:33 WBC RBC Hgb Hct MCV MCH MCHC RDW Plt Count Seg Neutrophils % Lymphocytes % Monocytes % Eosinophils % Basophils % Absolute Neutrophils Absolute Lymphocytes Absolute Monocytes Absolute Eosinophils Absolute Basophils Sodium Potassium Chloride Carbon Dioxide Anion Gap BUN Creatinine Est GFR ( Amer) Est GFR (Non-Af Amer) Glucose Calcium Total Bilirubin Direct Bilirubin Neonat Total Bilirubin Neonat Direct Bilirubin Neonat Indirect Bili AST ALT Alkaline Phosphatase Troponin I Total Protein Albumin Lipase Urine Color STRAW Urine Appearance CLEAR Urine pH 5.0 Ur Specific Creighton 1.005 Urine Protein NEGATIVE Urine Glucose (UA) NEGATIVE Urine Ketones NEGATIVE Urine Blood NEGATIVE Urine Nitrite NEGATIVE Urine Bilirubin NEGATIVE Urine Urobilinogen NEGATIVE Ur Leukocyte Esterase MODERATE H Urine WBC (Auto) 7 Urine RBC (Auto) 1 Squamous Epi Cells Auto 1 Urine Mucus (Auto) RARE Urine Ascorbic Acid NEGATIVE Chest X-Ray 02/19/18 13:34 IMPRESSION: Right paratracheal opacity which may represent pneumonia in the appropriate clinical setting. Recommend follow-up to resolution. - Vital Signs Vital signs: Temp Pulse Resp BP Pulse Ox 97.6 F 79 18 118/52 L 98 02/19/18 13:38 02/19/18 13:28 02/19/18 16:01 02/19/18 16:01 02/19/18 16:01 - Laboratory Result Diagrams: 02/19/18 14:23 02/19/18 14:23 Laboratory results interpreted by me: 02/19/18 02/19/18 02/19/18 14:23 14:23 16:33 RDW 15.0 H BUN 21 H Creatinine 1.26 H Est GFR ( Amer) 50 L Est GFR (Non-Af Amer) 41 L Direct Bilirubin 0.5 H AST 148 H ALT 112 H Albumin 3.4 L Ur Leukocyte Esterase MODERATE H - EKG Interpretation by Me Additional EKG results interpreted by me: 02/19/18 14:31 Carlene complete review 1422: normal sinus rhythm, rate 78, normal axis, no ectopy, normal TN Discharge - Discharge Clinical Impression: CAP (community acquired pneumonia) Qualifiers: Laterality: unspecified laterality Qualified Code(s): J18.9 - Pneumonia, unspecified organism UTI (urinary tract infection) Qualifiers: Urinary tract infection type: acute cystitis Hematuria presence: without hematuria Qualified Code(s): N30.00 - Acute cystitis without hematuria Condition: Stable Disposition: HOME, SELF-CARE Instructions: Urinary Tract Infection ([facility]), Pneumonia ([facility]), Levofloxacin Additional Instructions: Please return to the emergency department if you have any worsening, or concern of your symptoms. Please return to the emergency department if you develop chest pain, difficulty breathing, severe abdominal pain, or ongoing vomiting. Please follow-up with your primary care physician in 2-3 days and any other recommended physicians. If prescribed, take all medications as directed. If you have any questions or concerns do not hesitate to return the emergency department for evaluation. [] Prescriptions: Levofloxacin [Levaquin 750 mg Tablet] 750 mg PO DAILY #5 tablet Referrals: SORAIDA BERNSTEIN MD [Primary Care Provider] - Follow up as needed
--- NOTE | 2018-02-19 14:34 | RADIOLOGY REPORT (SQ) ---
EXAM DESCRIPTION: CHEST 2 VIEWS COMPLETED DATE/TIME: 02/19/2018 2:23 pm REASON FOR STUDY: cough COMPARISON: None. EXAM PARAMETERS: NUMBER OF VIEWS: two views TECHNIQUE: Digital Frontal and Lateral radiographic views of the chest acquired. RADIATION DOSE: NA LIMITATIONS: none FINDINGS: LUNGS AND PLEURA: Right paratracheal opacity. No left lung opacity. No pleural effusion or pneumothorax. MEDIASTINUM AND HILAR STRUCTURES: No masses or contour abnormalities. HEART AND VASCULAR STRUCTURES: Heart normal size. No evidence for failure. Calcifications of the ao rtic knob. BONES: No acute findings. HARDWARE: None in the chest. OTHER: No other significant finding. IMPRESSION: Right paratracheal opacity which may represent pneumonia in the appropriate clinical set ting. Recommend follow-up to resolution. TECHNICAL DOCUMENTATION: JOB ID: [id number] [employer]- All Rights Reserved Reading location - IP/workstation name: [email or web address]
[2018-02-19 14:35] LABS: ABSOLUTE BASOPHILS # (AUTO) 0.1 10^3/uL (0.0-0.2); ABSOLUTE EOSINOPHILS # (AUTO) 0.2 10^3/uL (0.0-0.6); ABSOLUTE LYMPHOCYTES (AUTO) 1.7 10^3/uL (0.5-4.7); ABSOLUTE MONOCYTES (AUTO) 0.5 10^3/uL (0.1-1.4); ABSOLUTE NEUT (AUTO) 4.3 10^3/uL (1.7-8.2); BASOPHILS % (AUTO) 1.3 % (0-2); EOSINOPHILS % (AUTO) 2.6 % (0-6); HEMATOCRIT 36.8 % (36.0-47.0); HEMOGLOBIN 12.2 g/dL (12.0-15.5); LYMPHOCYTES % (AUTO) 25.6 % (13-45); MEAN CORPUSCULAR HEMOGLOBIN 30.8 pg (27.0-33.4); MEAN CORPUSCULAR HGB CONC 33.1 g/dL (32.0-36.0); MEAN CORPUSCULAR VOLUME 93 fl (80-97); MONOCYTES % (AUTO) 7.6 % (3-13); PLATELET COUNT 387 10^3/uL (150-450); RED BLOOD COUNT 3.96 10^6/uL (3.72-5.28); SEGMENTED NEUTROPHILS % (AUTO) 62.9 % (42-78); TOTAL CELLS COUNTED % (AUTO) 100 %; WHITE BLOOD COUNT 6.8 10^3/uL (4.0-10.5)
[2018-02-19 14:49] LABS: ALANINE AMINOTRANSFERASE 112 U/L (9-52); ALBUMIN 3.4 g/dL (3.5-5.0); ALKALINE PHOSPHATASE 70 U/L (38-126); ANION GAP 13 (5-19); ASPARTATE AMINO TRANSFERASE 148 U/L (14-36); BILIRUBIN,DIRECT 0.5 mg/dL (0.0-0.4); BILIRUBIN,TOTAL 0.7 mg/dL (0.2-1.3); BLOOD UREA NITROGEN 21 mg/dL (7-20); CALCIUM 9.5 mg/dL (8.4-10.2); CARBON DIOXIDE 25 mmol/L (22-30); CHLORIDE 100 mmol/L (98-107); GLUCOSE 87 mg/dL (75-110); LIPASE 113.1 U/L (23-300); POTASSIUM 4.7 mmol/L (3.6-5.0); SODIUM 137.9 mmol/L (137-145); TOTAL PROTEIN 6.5 g/dL (6.3-8.2)
[2018-02-19] MEDS ORDERED: LEVOFLOXACIN 750 MG TABLET PO ONE (15:24)
--- NOTE | 2018-02-19 16:06 | EKG REPORT ---
SEVERITY:- NORMAL ECG - SINUS RHYTHM : Confirmed by: Ignacia Fowler 19-Feb-2018 16:05:35
[2018-02-19 16:46] LABS: APPEARANCE,URINE CLEAR; BILIRUBIN,URINE NEGATIVE (NEGATIVE); COLOR,URINE STRAW; GLUCOSE, URINE NEGATIVE (NEGATIVE); KETONES,URINE NEGATIVE (NEGATIVE); LEUKOCYTE ESTERASE,URINE MODERATE (NEGATIVE); NITRITE,URINE NEGATIVE (NEGATIVE); PROTEIN,URINE NEGATIVE (NEGATIVE); URINE SPECIFIC GRAVITY 1.005; UROBILINOGEN,URINE NEGATIVE mg/dL (<2.0)
[2018-02-19 17:04] VITALS: BP 122/48
== END 2018-02-19 17:23 | disposition home or self-care (01) ==
LOC: ER 13:13
DX: J18.9 Pneumonia, unspecified organism (principal); N30.00 Acute cystitis without hematuria; R53.81 Other malaise; R11.2 Nausea with vomiting, unspecified; R19.7 Diarrhea, unspecified; R10.9 Unspecified abdominal pain; E11.9 Type 2 diabetes mellitus without complications; I10 Essential (primary) hypertension; Z87.891 Personal history of nicotine dependence
CPT/HCPCS: 93005; 99284; 96361; 51701; 96374; 36415; 87086; 83690; 85025; 80053; 81001; 84484; 71046; 93010; J2405; J7040; A9270

== ENCOUNTER → 2018-03-08 | Outpatient (CLI) | payer MEDICARE, OTHER ==
--- NOTE | 2018-03-08 12:03 | RADIOLOGY REPORT (SQ) ---
EXAM DESCRIPTION: CHEST PA/LATERAL COMPLETED DATE/TIME: 03/08/2018 11:05 am REASON FOR STUDY: PNEUMONIA COMPARISON: 02/19/2018 EXAM PARAMETERS: NUMBER OF VIEWS: two views TECHNIQUE: Digital Frontal and Lateral radiographic views of the chest acquired. RADIATION DOSE: NA LIMITATIONS: none FINDINGS: LUNGS AND PLEURA: Persistent right apical opacity without significant change. Left lung i s clear. MEDIASTINUM AND HILAR STRUCTURES: No masses or contour abnormalities. HEART AND VASCULAR STRUCTURES: Heart normal size. No evidence for failure. BONES: No acute findings. HARDWARE: None in the chest. OTHER: No other significant finding. IMPRESSION: Appearance of the right apical opacity is now more consistent with a mass. There has be en no interval change since the previous study. RECOMMENDATION: Recommend CT scan chest. TECHNICAL DOCUMENTATION: JOB ID: [id number] [employer]- All Rights Reserved Reading location - IP/workstation name: [email or web address]
== END ==
LOC: OD 10:37
PROVIDERS: ATTEND Internal Medicine
DX: J18.9 Pneumonia, unspecified organism (principal)
CPT/HCPCS: 71046

== ENCOUNTER → 2018-03-13 | Outpatient (CLI) | payer MEDICARE, OTHER ==
--- NOTE | 2018-03-13 14:18 | RADIOLOGY REPORT (SQ) ---
EXAM DESCRIPTION: CT CHEST WITH COMPLETED DATE/TIME: 03/13/2018 8:20 am REASON FOR STUDY: RIGHT ATRIAL MASS (R91.8) R91.8 OTHER NONSPECIFIC ABNORMAL FINDING OF LUNG FIELD COMPARISON: Chest x-ray 03/08/2018 TECHNIQUE: CT scan of the chest performed using helical scanning technique with dynamic intravenous contrast injection. Images reviewed with lung, soft tissue and bone windows. Reconstructed coronal and sagittal MPR and MIP images reviewed. All images stored on PACS. All CT scanners at this facility use dose modulation, iterative reconstruction, and/or weight based d osing when appropriate to reduce radiation dose to as low as reasonably achievable (ALARA). [facility]: Dose Right [facility]: CareDose [facility]: Dose Right [facility]: Teradose 4D [facility]: [email or web address] CONTRAST TYPE AND DOSE: contrast/concentration: Isovue 350.00 mg/ml; Total Contrast Delivered: 80.0 ml; Total Saline Delivered: 55.0 ml RENAL FUNCTION: BUN 21 creatinine 1.3 RADIATION DOSE: CT Rad equipment meets quality standard of care and radiation dose reduction techniq ues were employed. CTDIvol: 12.5 mGy. DLP: 474 mGy-cm. . LIMITATIONS: None. FINDINGS: LUNGS AND PLEURA: 5 cm right suprahilar mass with some small satellite lesions. The large st of these is seen on image 29 series 4 and is subcentimeter in size. HILAR AND MEDIASTINAL STRUCTURES: Right suprahilar mass. There are some very small nonspecific media stinal nodes. HEART AND VASCULAR STRUCTURES: No aneurysm or dissection. No right atrial mass is appreciated. HARDWARE: None in the chest. UPPER ABDOMEN: No significant findings. Limited exam. THYROID AND OTHER SOFT TISSUES: No masses. No adenopathy. BONES: No significant finding. OTHER: No other significant finding. IMPRESSION: There is a 5 cm mass arising the superior aspect of the right hilum and extending into u pper lobe contiguous with the mediastinum. There are some air bronchograms. There are some small sa tellite nodules. Highly concerning for neoplasm. PET-CT or biopsy is recommended. TECHNICAL DOCUMENTATION: JOB ID: [id number] Quality ID # [id number]: Final reports with documentation of one or more dose reduction techniques (e.g., Au tomated exposure control, adjustment of the mA and/or kV according to patient size, use of iterative reconstruction technique) 2010 [employer]- All Rights Reserved Reading location - IP/workstation name: [email or web address]
== END ==
LOC: RAD 07:39
PROVIDERS: ATTEND Internal Medicine
DX: R91.8 Other nonspecific abnormal finding of lung field (principal)
CPT/HCPCS: 71260

== ENCOUNTER → 2018-04-02 | Outpatient (CLI) | payer MEDICARE, OTHER ==
--- NOTE | 2018-04-03 08:24 | RADIOLOGY REPORT (SQ) ---
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 TECHNIQUE: Blood glucose level was verified. Above dose of FDG was injected intravenously. 2-D seg mented attenuation correction images were obtained from the base of the skull to the midthighs. Nonc ontrast CT images were obtained for attenuation correction and fusion with emission images. CT image s were performed without oral or intravenous contrast and are not sensitive for parenchymal lesions. A series of overlapping emission PET images were obtained. Images reviewed and manipulated at [facility] [place] [place] by the radiologist. Images stored on PACS. LIMITATIONS: None. FINDINGS: HEAD AND NECK: No areas of abnormal metabolic activity in the soft tissues of the head and neck. CHEST: In the right upper lobe along the apical segmental bronchus/upper hilum, a 5 x 5 cm spiculated mass is present on axial image 64, with SUV of 3.4. There are non metabolic subcentimeter lymph nodes in the mediastinum along the right peritracheal reg ion axial image 65, and prevascular regions axial image 63 and 69. ABDOMEN AND PELVIS: No areas of abnormal metabolic activity in the abdomen or pelvis. Expected physi ologic activity is present in the genitourinary system and bowel. PROXIMAL LOWER EXTREMITIES: No areas of abnormal metabolic activity in the soft tissues of the lower extremities. BONES: No abnormal metabolic activity in the visualized skeleton. ADDITIONAL CT FINDINGS: Small hiatal hernia. Calcified coronary arteries. Diffuse colon metabolic a ctivity is seen, likely related to inflammation. OTHER: Liver background activity 2.5 SUV. Blood pool background activity 1.7 SUV IMPRESSION: 5 x 5 cm malignant right upper lobe mass. TECHNICAL DOCUMENTATION: JOB ID: [id number] [employer]- All Rights Reserved Reading location - IP/workstation name: [email or web address]
== END ==
LOC: RAD 15:52
PROVIDERS: ATTEND Internal Medicine
DX: C34.11 Malignant neoplasm of upper lobe, right bronchus or lung (principal)
CPT/HCPCS: 78815; A9552

== ENCOUNTER → 2018-04-03 | Outpatient (CLI) | payer MEDICARE, OTHER ==
[2018-04-03 11:08] LABS: ABSOLUTE BASOPHILS # (AUTO) 0.1 10^3/uL (0.0-0.2); ABSOLUTE EOSINOPHILS # (AUTO) 0.1 10^3/uL (0.0-0.6); ABSOLUTE LYMPHOCYTES (AUTO) 1.5 10^3/uL (0.5-4.7); ABSOLUTE MONOCYTES (AUTO) 0.4 10^3/uL (0.1-1.4); ABSOLUTE NEUT (AUTO) 3.7 10^3/uL (1.7-8.2); BASOPHILS % (AUTO) 1.4 % (0-2); EOSINOPHILS % (AUTO) 2.3 % (0-6); HEMATOCRIT 32.6 % (36.0-47.0); LYMPHOCYTES % (AUTO) 26.6 % (13-45); MEAN CORPUSCULAR HEMOGLOBIN 31.5 pg (27.0-33.4); MEAN CORPUSCULAR HGB CONC 33.7 g/dL (32.0-36.0); MEAN CORPUSCULAR VOLUME 94 fl (80-97); MONOCYTES % (AUTO) 6.2 % (3-13); PLATELET COUNT 397 10^3/uL (150-450); RED BLOOD COUNT 3.48 10^6/uL (3.72-5.28); RED CELL DISTRIBUTION WIDTH 16.2 % (11.5-14.0); SEGMENTED NEUTROPHILS % (AUTO) 63.5 % (42-78); TOTAL CELLS COUNTED % (AUTO) 100 %; WHITE BLOOD COUNT 5.8 10^3/uL (4.0-10.5)
[2018-04-03 11:38] LABS: ALANINE AMINOTRANSFERASE 20 U/L (9-52); ALBUMIN 3.9 g/dL (3.5-5.0); ALKALINE PHOSPHATASE 47 U/L (38-126); ANION GAP 12 (5-19); ASPARTATE AMINO TRANSFERASE 26 U/L (14-36); BILIRUBIN,DIRECT 0.3 mg/dL (0.0-0.4); BILIRUBIN,TOTAL 0.4 mg/dL (0.2-1.3); BLOOD UREA NITROGEN 23 mg/dL (7-20); CALCIUM 10.3 mg/dL (8.4-10.2); CARBON DIOXIDE 27 mmol/L (22-30); CHLORIDE 103 mmol/L (98-107); GLUCOSE 99 mg/dL (75-110); IRON(TIBC) 91.3 ug/dL (37-170); POTASSIUM 5.4 mmol/L (3.6-5.0); SODIUM 142.4 mmol/L (137-145); TOTAL PROTEIN 6.8 g/dL (6.3-8.2)
[2018-04-03 12:24] LABS: HEMATOCRIT 32.6 % (36.0-47.0); MEAN CORPUSCULAR HEMOGLOBIN 31.5 pg (27.0-33.4); MEAN CORPUSCULAR HGB CONC 33.7 g/dL (32.0-36.0); MEAN CORPUSCULAR VOLUME 94 fl (80-97); PLATELET COUNT 397 10^3/uL (150-450); RED BLOOD COUNT 3.48 10^6/uL (3.72-5.28); RED CELL DISTRIBUTION WIDTH 16.2 % (11.5-14.0); WHITE BLOOD COUNT 5.8 10^3/uL (4.0-10.5)
[2018-04-03 12:57] LABS: FOLATE > 20.00 ng/mL (>2.76)
[2018-04-03 13:04] LABS: ANION GAP 12 (5-19); BLOOD UREA NITROGEN 23 mg/dL (7-20); CALCIUM 10.3 mg/dL (8.4-10.2); CARBON DIOXIDE 27 mmol/L (22-30); CHLORIDE 103 mmol/L (98-107); GLUCOSE 99 mg/dL (75-110); POTASSIUM 5.4 mmol/L (3.6-5.0); SODIUM 142.4 mmol/L (137-145); URIC ACID 3.8 mg/dL (2.5-7.5)
[2018-04-04 09:35] LABS: APPEARANCE,URINE CLEAR; BILIRUBIN,URINE NEGATIVE (NEGATIVE); COLOR,URINE STRAW; GLUCOSE, URINE NEGATIVE (NEGATIVE); KETONES,URINE NEGATIVE (NEGATIVE); LEUKOCYTE ESTERASE,URINE SMALL (NEGATIVE); NITRITE,URINE NEGATIVE (NEGATIVE); PROTEIN,URINE NEGATIVE (NEGATIVE); URINE SPECIFIC GRAVITY 1.011; UROBILINOGEN,URINE NEGATIVE mg/dL (<2.0)
[2018-04-05 12:38] LABS: CREATININE URINE 44.8 mg/dL (Not Estab.); MICROALBUMIN URINE 43.2 ug/mL (Not Estab.)
== END ==
LOC: OD 10:21
PROVIDERS: ATTEND Internal Medicine Nephrology
DX: R80.9 Proteinuria, unspecified (principal); E11.9 Type 2 diabetes mellitus without complications; M10.00 Idiopathic gout, unspecified site; I10 Essential (primary) hypertension; C34.11 Malignant neoplasm of upper lobe, right bronchus or lung
CPT/HCPCS: 36415; 80048; 80053; 81001; 82043; 82570; 82607; 82728; 82746; 83540; 83550; 84550; 85025; 85027

== ENCOUNTER → 2018-04-05 | Outpatient (CLI) | payer MEDICARE, OTHER ==
--- NOTE | 2018-04-05 12:21 | RADIOLOGY REPORT (SQ) ---
EXAM DESCRIPTION: MRI HEAD COMBO COMPLETED DATE/TIME: 04/05/2018 10:40 am REASON FOR STUDY: MALIGNANT NEOPLASM OF UPPER LOBE C34.11 MALIGNANT NEOPLASM OF UPPER LOBE, RIGHT B RONCHUS OR L COMPARISON: None. TECHNIQUE: Multiplanar imaging includes noncontrasted T1, T2, FLAIR, and Diffusion with ADC map seq uences. Contrast enhanced T1 images. Images stored on PACS. CONTRAST TYPE AND DOSE: 10 mL Dotarem. RENAL FUNCTION: Creatinine 1.1, GFR 48 LIMITATIONS: None. FINDINGS: ANATOMY: No anomalies. Normal vascular flow voids. Pituitary fossa normal. CSF SPACES: Normal size and contour. No hemorrhage. CEREBRUM: A few high-signal intensity lesions scattered throughout the white matter on FLAIR imaging with distribution suggesting chronic microvascular ischemic change. Sulci and gyri normal in size and contour. No evidence of hemorrhage, mass or extraaxial fluid collection. No enhancing lesions. POSTERIOR FOSSA: No signal alteration. No hemorrhage. No edema, masses or mass effect. Internal audit ory canals, cerebello-pontine angles, mastoids normal. DIFFUSION: Negative for acute or subacute infarction. ORBITS: No masses. Globes normal. PARANASAL SINUSES: No fluid levels. Mucosa normal. OTHER: No other significant finding. IMPRESSION: NO ENHANCING LESIONS. MINIMAL MICROVASCULAR ISCHEMIC CHANGE. OTHERWISE NORMAL STUDY. EVIDENCE OF ACUTE STROKE: NO. TECHNICAL DOCUMENTATION: JOB ID: [id number] [employer]- All Rights Reserved Reading location - IP/workstation name: [email or web address]
== END ==
LOC: RAD 09:42
PROVIDERS: ATTEND Internal Medicine
DX: C34.11 Malignant neoplasm of upper lobe, right bronchus or lung (principal)
CPT/HCPCS: 70553; A9576

== ENCOUNTER → 2018-04-12 | Outpatient (CLI) | payer MEDICARE, OTHER ==
[2018-04-12 10:26] LABS: ALANINE AMINOTRANSFERASE 19 U/L (9-52); ALKALINE PHOSPHATASE 46 U/L (38-126); ANION GAP 7 (5-19); ASPARTATE AMINO TRANSFERASE 28 U/L (14-36); BILIRUBIN,DIRECT 0.3 mg/dL (0.0-0.4); BILIRUBIN,TOTAL 0.4 mg/dL (0.2-1.3); BLOOD UREA NITROGEN 28 mg/dL (7-20); CALCIUM 9.8 mg/dL (8.4-10.2); CARBON DIOXIDE 30 mmol/L (22-30); CHLORIDE 104 mmol/L (98-107); GLUCOSE 105 mg/dL (75-110); POTASSIUM 5.1 mmol/L (3.6-5.0); SODIUM 141.3 mmol/L (137-145); TOTAL PROTEIN 6.8 g/dL (6.3-8.2)
== END ==
LOC: OD 09:01
PROVIDERS: ATTEND Internal Medicine
DX: D50.9 Iron deficiency anemia, unspecified (principal); R10.9 Unspecified abdominal pain; E11.8 Type 2 diabetes mellitus with unspecified complications
CPT/HCPCS: 36415; 80053; 83036; 84550

== ENCOUNTER → 2018-04-19 | Outpatient (CLI) | payer MEDICARE, OTHER ==
--- NOTE | 2018-04-19 11:14 | RADIOLOGY REPORT (SQ) ---
EXAM DESCRIPTION: HAND RIGHT 3 VIEWS COMPLETED DATE/TIME: 04/19/2018 10:49 am REASON FOR STUDY: RT HAND FRACTURE M79.641 PAIN IN RIGHT HAND fell 1 week ago with pain in the righ t hand, base of thumb COMPARISON: None. EXAM PARAMETERS: NUMBER OF VIEWS: Three views. TECHNIQUE: AP, lateral and oblique radiographic images acquired of the right hand. LIMITATIONS: None. FINDINGS: MINERALIZATION: Normal. BONES: No acute fracture or dislocation. No worrisome bone lesions. JOINTS: Advanced osteoarthritis at the right 1st carpometacarpal joint, with joint space narrowing, b pavel sclerosis and intra-articular loose bodies. No acute fracture. SOFT TISSUES: No soft tissue swelling. No foreign body. OTHER: No other significant finding. IMPRESSION: Advanced osteoarthritis at the 1st carpometacarpal joint, with joint space narrowing, yue ny sclerosis and intra-articular loose bodies. No acute fracture. TECHNICAL DOCUMENTATION: JOB ID: [id number] [employer]- All Rights Reserved Reading location - IP/workstation name: [facility]
== END ==
LOC: OD 10:36
PROVIDERS: ATTEND Internal Medicine
DX: M79.641 Pain in right hand (principal)

== ENCOUNTER → 2018-05-26 | Outpatient (CLI) | payer MEDICARE, OTHER ==
--- NOTE | 2018-05-26 09:47 | RADIOLOGY REPORT (SQ) ---
EXAM DESCRIPTION: CT CHEST WITH COMPLETED DATE/TIME: 05/26/2018 9:34 am REASON FOR STUDY: LUNG CA (C34.11) C34.11 MALIGNANT NEOPLASM OF UPPER LOBE, RIGHT BRONCHUS OR L COMPARISON: PET-CT dated 04/02/2018, chest CT dated 03/13/2018 TECHNIQUE: CT scan of the chest performed using helical scanning technique with dynamic intravenous contrast injection. Images reviewed with lung, soft tissue and bone windows. Reconstructed coronal and sagittal MPR and MIP images reviewed. All images stored on PACS. All CT scanners at this facility use dose modulation, iterative reconstruction, and/or weight based d osing when appropriate to reduce radiation dose to as low as reasonably achievable (ALARA). [facility]: Dose Right [facility]: CareDose [facility]: Dose Right [facility]: Teradose 4D [facility]: [employer]ence CONTRAST TYPE AND DOSE: contrast/concentration: Isovue 350.00 mg/ml; Total Contrast Delivered: 80.0 ml; Total Saline Delivered: 55.0 ml RENAL FUNCTION: BUN 31, creatinine 1.2 RADIATION DOSE: CT Rad equipment meets quality standard of care and radiation dose reduction techniq ues were employed. CTDIvol: 12.5 mGy. DLP: 454 mGy-cm. . LIMITATIONS: None. FINDINGS: LUNGS AND PLEURA: The right upper lobe mass adjacent to the mediastinum is unchanged in si ze and configuration. Largest diameter is 4.3 x 3.5 cm. Small satellite lesions are stable. The la rgest measure 6.1 mm in diameter. HILAR AND MEDIASTINAL STRUCTURES: Small right mediastinal lymph nodes remain. These are nonspecific. HEART AND VASCULAR STRUCTURES: No aneurysm or dissection. No central pulmonary emboli. No pericardi al effusion. HARDWARE: None in the chest. UPPER ABDOMEN: No significant findings. Limited exam. THYROID AND OTHER SOFT TISSUES: No masses. No adenopathy. BONES: No significant finding. OTHER: No other significant finding. IMPRESSION: No significant change in the right suprahilar mass which extends into the upper lobe. TECHNICAL DOCUMENTATION: JOB ID: [id number] Quality ID # [id number]: Final reports with documentation of one or more dose reduction techniques (e.g., Au tomated exposure control, adjustment of the mA and/or kV according to patient size, use of iterative reconstruction technique) 2010 [employer]- All Rights Reserved Reading location - IP/workstation name: [email or web address]
== END ==
LOC: RAD 08:54
PROVIDERS: ATTEND Internal Medicine Hematology & Oncology
DX: C34.11 Malignant neoplasm of upper lobe, right bronchus or lung (principal)
CPT/HCPCS: 71260

== ENCOUNTER → 2018-12-27 | Outpatient (CLI) | payer MEDICARE, OTHER ==
--- NOTE | 2018-12-27 11:01 | RADIOLOGY REPORT (SQ) ---
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 Images reviewed with lung, soft tissue and bone windows. Reconstructed coronal and sagittal MPR and MIP images reviewed. All images stored on PACS. All CT scanners at this facility use dose modulation, iterative reconstruction, and/or weight based d osing when appropriate to reduce radiation dose to as low as reasonably achievable (ALARA). [facility]: Dose Right [facility]: CareDose [facility]: Dose Right [facility]: Teradose 4D [facility]: Yurpy CONTRAST TYPE AND DOSE: contrast/concentration: Isovue 350.00 mg/ml; Total Contrast Delivered: 80.0 ml; Total Saline Delivered: 55.0 ml RENAL FUNCTION: Creatinine 1.1 RADIATION DOSE: CT Rad equipment meets quality standard of care and radiation dose reduction techniq ues were employed. CTDIvol: 13.3 mGy. DLP: 492 mGy-cm. . LIMITATIONS: None. FINDINGS: LUNGS AND PLEURA: The right upper lobe mass is measured at 2.8 x 2.8 cm. This is smaller than prior CT of the chest but has changed in configuration when compared recent PET-CT. Soft tissue attenuation extends anteriorly to the mass now which may represent post radiation change. The nodul e in the superior segment of the right lower lobe is measured 2.3 x 1.4 cm smaller than recent PET-CT . There is some parenchymal airspace disease in the right upper lobe most likely post treatment maher ge. No new nodules. HILAR AND MEDIASTINAL STRUCTURES: There are small prevascular lymph nodes. These have slightly incre ased in size when compared to prior chest CT. There are grossly unchanged from recent PET-CT. HEART AND VASCULAR STRUCTURES: No aneurysm or dissection. No central pulmonary emboli. No pericardi al effusion. HARDWARE: None in the chest. UPPER ABDOMEN: No significant findings. Limited exam. THYROID AND OTHER SOFT TISSUES: No masses. No adenopathy. BONES: No significant finding. OTHER: No other significant finding. IMPRESSION: 1. The right upper lobe mass has slightly changed in configuration when compared to rece nt PET-CT this may be related to therapy largest diameter is 2.8 x 2.8 cm. 2. The right lower lobe pulmonary nodule has decreased in size and now measures 2.3 x 1.4 cm. 3. Parenchymal changes in the right upper lobe are most likely post treatment change. TECHNICAL DOCUMENTATION: JOB ID: [id number] Quality ID # 436: Final reports with documentation of one or more dose reduction techniques (e.g., Au tomated exposure control, adjustment of the mA and/or kV according to patient size, use of iterative reconstruction technique) 2010 [employer]- All Rights Reserved Reading location - IP/workstation name: [email or web address]
== END ==
LOC: RAD 09:04
PROVIDERS: ATTEND Internal Medicine
DX: C34.11 Malignant neoplasm of upper lobe, right bronchus or lung (principal)
CPT/HCPCS: 71260; 82565

== ENCOUNTER → 2019-01-29 | Outpatient (CLI) | payer MEDICARE, OTHER ==
--- NOTE | 2019-01-29 14:01 | WOMENS IMAGING REPORT ---
EXAM DESCRIPTION: 3D SCREENING MAMMO BILAT COMPLETED DATE/TIME: 01/29/2019 12:15 pm REASON FOR STUDY: Z12.31 ENCOUNTER FOR SCREENING MAMMOGRAM FOR MALIGNANT NEOPLASM OF BREAST Z12.31 ENCNTR SCREEN MAMMOGRAM FOR MALIGNANT NEOPLASM OF WINIFRED COMPARISON: 2016, 2017 EXAM PARAMETERS: Views: Standard craniocaudal and mediolateral oblique views of each breast recorded using digital acquisition and breast tomosynthesis. Read with the assistance of CAD. .[facility] - R2 [employer] Management Professor Version 9.2 LIMITATIONS: None. FINDINGS: No suspicious masses, suspicious calcifications or architectural distortion. No areas of c oncern. IMPRESSION: NEGATIVE MAMMOGRAM. BIRADS 1. BREAST DENSITY: b. There are scattered areas of fibroglandular density. BIRAD: ASSESSMENT: 1 NEGATIVE RECOMMENDATION: ROUTINE SCREENING Please continue yearly bilateral screening mammography/tomosynthesis in January 2020. COMMENT: The patient has been notified of the results by letter per MQSA requirements. Additional no tification policies are in place for contacting patient with suspicious or incomplete findings. Quality ID #[id number]: The [employer] recommends an annual screening mammogram for women aged 40 years or over. This facility utilizes a reminder system to ensure that all patients receive reminder letters, and/or direct phone calls for appointments. This includes reminders for routine scr eening mammograms, diagnostic mammograms, or other Breast Imaging Interventions when appropriate. Th is patient will be placed in the appropriate reminder system. TECHNICAL DOCUMENTATION: FINDING NUMBER: (1) ASSESSMENT: (1) JOB ID: [id number] [employer]- All Rights Reserved Reading location - IP/workstation name: [email or web address]
== END ==
LOC: WI 11:13
PROVIDERS: ATTEND Family Medicine
DX: Z12.31 Encounter for screening mammogram for malignant neoplasm of breast (principal)
CPT/HCPCS: 77063; 77067

== ENCOUNTER → 2019-02-25 | Outpatient (CLI) | payer MEDICARE, OTHER ==
--- NOTE | 2019-02-26 09:34 | RADIOLOGY REPORT (SQ) ---
EXAM DESCRIPTION: PET CT SKULL/THIGH COMPLETED DATE/TIME: 02/26/2019 12:00 am REASON FOR STUDY: (C34.11)MALIGNANT NEOPLASM OF UPPER LOBE, RIGHT BRONCHUS OR LUNG C34.11 MALIGNANT NEOPLASM OF UPPER LOBE, RIGHT BRONCHUS OR L COMPARISON: 11/05/2018 RADIONUCLIDE AND DOSE: 10.07 mCi F18 FDG The route of agent administration: Intravenous FASTING BLOOD SUGAR: 99 mg/dl CONTRAST TYPE AND DOSE: No CT contrast given. TECHNIQUE: Blood glucose level was verified. Above dose of FDG was injected intravenously. 2-D seg mented attenuation correction images were obtained from the base of the skull to the midthighs. Nonc ontrast CT images were obtained for attenuation correction and fusion with emission images. CT image s were performed without oral or intravenous contrast and are not sensitive for parenchymal lesions. A series of overlapping emission PET images were obtained. Images reviewed and manipulated at [facility] work station by the radiologist. Images stored on PACS. LIMITATIONS: None. FINDINGS: HEAD AND NECK: No areas of abnormal metabolic activity in the soft tissues of the head and neck. CHEST: 2.0 x 2.4 cm right upper lobe nodule 2.4 SUV. Previously 2.0 x 3.3 and 2.2 SUV. 1.6 x 1.6 cm diameter nodule superior segment right lower lobe measuring 2.0 SUV. Previously 2.1 x 3 .1 cm and 4.0 SUV. ABDOMEN AND PELVIS: No areas of abnormal metabolic activity in the abdomen or pelvis. Expected physi ologic activity is present in the genitourinary system and bowel. PROXIMAL LOWER EXTREMITIES: No areas of abnormal metabolic activity in the soft tissues of the lower extremities. BONES: No abnormal metabolic activity in the visualized skeleton. ADDITIONAL CT FINDINGS: No additional significant findings on the noncontrast CT images. OTHER: No other significant findings. IMPRESSION: Favorable response to therapy of right upper and lower lobe nodules. TECHNICAL DOCUMENTATION: JOB ID: [id number] [employer]- All Rights Reserved Reading location - IP/workstation name: [email or web address]
== END ==
LOC: RAD 16:38
PROVIDERS: ATTEND Internal Medicine
DX: C34.11 Malignant neoplasm of upper lobe, right bronchus or lung (principal)
CPT/HCPCS: 78815; A9552

== ENCOUNTER → 2019-04-06 | Outpatient (CLI) | payer MEDICARE, OTHER ==
[2019-04-06 10:08] LABS: ALKALINE PHOSPHATASE 42 U/L (38-126); ANION GAP 11 (5-19); ASPARTATE AMINO TRANSFERASE 26 U/L (14-36); BILIRUBIN,DIRECT 0.2 mg/dL (0.0-0.4); BILIRUBIN,TOTAL 0.4 mg/dL (0.2-1.3); BLOOD UREA NITROGEN 27 mg/dL (7-20); CALCIUM 9.7 mg/dL (8.4-10.2); CARBON DIOXIDE 26 mmol/L (22-30); CHLORIDE 104 mmol/L (98-107); CHOLESTEROL 146.59 mg/dL (0-200); GLUCOSE 113 mg/dL (75-110); POTASSIUM 5.1 mmol/L (3.6-5.0); TRIGLYCERIDES 226 mg/dL (<150)
[2019-04-06 10:20] LABS: DIRECT LDL 102 mg/dL (<100)
[2019-04-06 10:26] LABS: VLDL CHOLESTEROL 45.2 mg/dL (10-31)
[2019-04-08 08:37] LABS: CREATININE URINE 73.4 mg/dL (Not Estab.); MICROALBUMIN URINE 58.5 ug/mL (Not Estab.)
== END ==
LOC: OD 08:41
PROVIDERS: ATTEND Family Medicine
DX: E78.5 Hyperlipidemia, unspecified (principal); E11.21 Type 2 diabetes mellitus with diabetic nephropathy
CPT/HCPCS: 36415; 80053; 80061; 82043; 82570; 83036

== ENCOUNTER → 2019-06-04 | Outpatient (CLI) | payer MEDICARE, OTHER ==
--- NOTE | 2019-06-04 11:10 | RADIOLOGY REPORT (SQ) ---
EXAM DESCRIPTION: CT CHEST WITH COMPLETED DATE/TIME: 06/04/2019 9:34 am REASON FOR STUDY: MALIGNANT NEOPLASM OF UPPER LOBE, RIGHT BRONCHUS OR LUNG C34.11 MALIGNANT NEOPLAS M OF UPPER LOBE, RIGHT BRONCHUS OR L COMPARISON: PET from 02/25/[address] of the chest with contrast from 12/27/2018. TECHNIQUE: CT scan of the chest performed using helical scanning technique with dynamic intravenous contrast injection. Images reviewed with lung, soft tissue and bone windows. Reconstructed coronal and sagittal MPR and MIP images reviewed. All images stored on PACS. All CT scanners at this facility use dose modulation, iterative reconstruction, and/or weight based d osing when appropriate to reduce radiation dose to as low as reasonably achievable (ALARA). [facility]: Dose Right [facility]: CareDose [facility]: Dose Right [facility]: Teradose 4D [facility]: [employer] CONTRAST TYPE AND DOSE: 100 mL Omnipaque 350- low osmolar. RENAL FUNCTION: Creatinine 1.1 milligrams/deciliter. LIMITATIONS: None. FINDINGS: LUNGS AND PLEURA: The trachea main bronchi are patent. The paramediastinal spiculated nod ule that extends from the right hilum to the apical segment of the right upper lobe with air bronchog carmel is unchanged in size compared to the PET from 02/25/2019 and it measures up to 2.3 cm in transver se diameter. The spiculated nodule in the superior segment of the right lower lobe (image 46 of seri es 6) and the clustered sub-solid nodules in the right middle lobe that measure up to 5 mm in diamete r (images 65, 67 70 and 71 of series 6) are also unchanged. There is new or enlarging pulmonary nodule. There is no consolidation, ground-glass opacity, pleural effusion or pneumothorax. HILAR AND MEDIASTINAL STRUCTURES: No mediastinal or hilar adenopathy. The thoracic esophagus is patu lous and debris is noted within its lumen above the level of the pako. HEART AND VASCULAR STRUCTURES: No aneurysm or dissection of the thoracic aorta. There is atheroscler otic calcification of the coronary arteries. The left ventricle is enlarged. There is no pericardia l effusion. HARDWARE: None. UPPER ABDOMEN: Refer to the separate report of the CT of the abdomen. THYROID AND OTHER SOFT TISSUES: No masses or adenopathy. BONES: No fracture or osseous lesion. OTHER: No other finding. IMPRESSION: 1. Stable spiculated nodules in the right upper and lower lobes as detailed above. 2. Stable clustered sub-solid nodules in the right middle lobe. TECHNICAL DOCUMENTATION: JOB ID: [id number] Quality ID # 436: Final reports with documentation of one or more dose reduction techniques (e.g., Au tomated exposure control, adjustment of the mA and/or kV according to patient size, use of iterative reconstruction technique) 2010 [employer]- All Rights Reserved Reading location - IP/workstation name: [email or web address]
--- NOTE | 2019-06-04 11:42 | RADIOLOGY REPORT (SQ) ---
EXAM DESCRIPTION: CT ABD/PELVIS WITH IV ONLY COMPLETED DATE/TIME: 06/04/2019 9:33 am REASON FOR STUDY: MALIGNANT NEOPLASM OF UPPER LOBE, RIGHT BRONCHUS OR LUNG C34.11 MALIGNANT NEOPLAS M OF UPPER LOBE, RIGHT BRONCHUS OR L COMPARISON: PET from 02/25/2019. TECHNIQUE: CT scan of the abdomen and pelvis performed using helical scanning technique with dynamic intravenous contrast injection. No oral contrast. Images reviewed with lung, soft tissue, and bone windows. Reconstructed coronal and sagittal MPR images reviewed. Delayed images for evaluation of the urinary system also acquired. All images stored on PACS. All CT scanners at this facility use dose modulation, iterative reconstruction, and/or weight based d osing when appropriate to reduce radiation dose to as low as reasonably achievable (ALARA). [facility]: Dose Right [facility]: CareDose [facility]: Dose Right [facility]: Teradose 4D [facility]: [employer] CONTRAST TYPE AND DOSE: Contrast/concentration: Isovue 350.00 mg/ml; Total Contrast Delivered: 100.0 ml; Total Saline Delivered: 72.0 ml RENAL FUNCTION: Creatinine 1.1 milligrams/deciliter. RADIATION DOSE: CT Rad equipment meets quality standard of care and radiation dose reduction techniq ues were employed. CTDIvol: 9.7 - 23.3 mGy. DLP: 2737 mGy-cm. LIMITATIONS: None. FINDINGS: LOWER CHEST: Refer to the separate report of the CT of the chest. LIVER: The relative hypoattenuation of hepatic parenchyma compared to the splenic parenchyma on the p ortal venous phase is suggestive of hepatic steatosis. The portal veins are patent. There is no hep atic mass. SPLEEN: No splenomegaly or splenic mass. PANCREAS: No abnormality GALLBLADDER: No abnormality that is apparent on CT. ADRENAL GLANDS: No mass or asymmetry. RIGHT KIDNEY AND URETER: Subcentimeter cortical based hypodense cystic lesion that projects in the in terpolar portion of the kidney. There is no solid mass, hydronephrosis, nephrolithiasis, hydroureter or ureterolithiasis. LEFT KIDNEY AND URETER: Subcentimeter cortical based hypodense cystic lesions. There is no solid mas s, hydronephrosis, hydroureter or ureterolithiasis. AORTA AND VESSELS: Mild ectasia of the infrarenal abdominal aorta measuring up to 2 cm in AP diameter . RETROPERITONEUM: No retroperitoneal adenopathy, hemorrhage or mass. BOWEL AND PERITONEAL CAVITY: Colonic diverticulosis without diverticulitis. There is no bowel obstru ction, bowel wall thickening or pericolonic/ perienteric inflammation. There is no mesenteric adenop athy, free intraperitoneal fluid or mesenteric/ omental inflammation. APPENDIX: Unable to identify the appendix. PELVIS: No abnormality of the uterus or adnexa that is apparent on CT. The urinary bladder is partia lly distended. ABDOMINAL WALL: No masses or hernias. BONES: No acute fracture or osseous lesion. OTHER: No other finding. IMPRESSION: No acute intra-abdominal abnormality. TECHNICAL DOCUMENTATION: JOB ID: [id number] Quality ID # 436: Final reports with documentation of one or more dose reduction techniques (e.g., Au tomated exposure control, adjustment of the mA and/or kV according to patient size, use of iterative reconstruction technique) 2010 [employer]- All Rights Reserved Reading location - IP/workstation name: [email or web address]
== END ==
LOC: RAD 09:03
PROVIDERS: ATTEND Internal Medicine
DX: C34.11 Malignant neoplasm of upper lobe, right bronchus or lung (principal)
CPT/HCPCS: 71260; 74177

== ENCOUNTER → 2019-07-05 | Outpatient (CLI) | payer MEDICARE, OTHER | LOC: OD 08:40 | PROVIDERS: ATTEND Family Medicine | DX: E78.2 Mixed hyperlipidemia (principal); Z53.8 Procedure and treatment not carried out for other reasons ==

== ENCOUNTER → 2019-09-03 | Outpatient (CLI) | payer MEDICARE, OTHER ==
--- NOTE | 2019-09-03 11:32 | RADIOLOGY REPORT (SQ) ---
EXAM DESCRIPTION: CT CHEST WITH; CT ABD/PELVIS WITH IV ONLY IMAGES COMPLETED DATE/TIME: 09/03/2019 9:45 am REASON FOR STUDY: (C34.11)MALIGNANT NEOPLASM OF UPPER LOBE, RIGHT BRONCHUS OR LUNG C34.11 MALIGNANT NEOPLASM OF UPPER LOBE, RIGHT BRONCHUS OR L COMPARISON: PET-CT 04/02/2018, 11/05/2017, 02/25/2019 CT chest abdomen pelvis 06/04/2019 CONTRAST TYPE AND DOSE: contrast/concentration: Isovue 350.00 mg/ml; Total Contrast Delivered: 100.0 ml; Total Saline Delivered: 72.0 ml RENAL FUNCTION: Creatinine 1.0 TECHNIQUE: CT scan of the chest performed using helical scanning technique with dynamic intravenous contrast injection. Images reviewed with lung, soft tissue and bone windows. Reconstructed coronal a nd sagittal MPR images reviewed. All images stored on PACS. CT scan of the abdomen and pelvis performed with intravenous and without oral contrastusing helical s ross technique with dynamic intravenous contrast injection. Images reviewed with lung, soft tissu e and bone windows. Reconstructed coronal and sagittal MPR images reviewed. Delayed images for eval uation of the urinary system also acquired and evaluated. All images stored on PACS. All CT scanners at this facility use dose modulation, iterative reconstruction, and/or weight based d osing when appropriate to reduce radiation dose to as low as reasonably achievable (ALARA). [facility]: Dose Right [facility]: CareDose [facility]: Dose Right [facility]: Teradose 4D [facility]: [employer] RADIATION DOSE: CT Rad equipment meets quality standard of care and radiation dose reduction techniq ues were employed. CTDIvol: 10.2 - 23.8 mGy. DLP: 2840 mGy-cm. . LIMITATIONS: None. FINDINGS: CHEST: LUNGS AND PLEURA: Stable scarring is present in the right upper lobe and superior segment right lower lobe. No new pulmonary nodules. No pleural effusion. No pneumothorax. No acute infiltrates. HILAR AND MEDIASTINAL STRUCTURES: No identified masses or abnormal nodes. HEART AND VASCULAR STRUCTURES: No aneurysm or dissection. No central pulmonary emboli. No pericardi al effusion. HARDWARE: None. THYROID AND OTHER SOFT TISSUES: No masses. No adenopathy. BONES: No significant finding. OTHER: No other significant finding. ABDOMEN AND PELVIS: LIVER: Normal size. No masses. No dilated ducts. SPLEEN: Normal size. No focal lesions. PANCREAS: No masses. No significant calcifications. No adjacent inflammation or peripancreatic fluid collections. Pancreatic duct not dilated. GALLBLADDER: No identified stones by CT criteria. No inflammatory changes to suggest cholecystitis. ADRENAL GLANDS: No significant masses or asymmetry. RIGHT KIDNEY AND URETER: No solid masses. 1 cm cyst right mid-pole kidney. No significant calcifica tion. No hydronephrosis or hydroureter. LEFT KIDNEY AND URETER: No solid masses. 1 cm cyst left lower pole kidney. No significant calcifica tion. No hydronephrosis or hydroureter. AORTA AND VESSELS: Heavily calcified abdominal aorta without aneurysm. 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 BOWEL AND PERITONEAL CAVITY: No masses or inflammatory changes. No free fluid or peritoneal masses. Few colonic diverticuli without CT signs of acute diverticulitis. No free air or free fluid APPENDIX: Not identified ABDOMINAL WALL: No masses. No hernias. PELVIS: No mass or free fluid. Normal bladder. 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 IMPRESSION: Post therapeutic changes right lung. No CT evidence of metastatic disease to the chest abdomen or pelvis TECHNICAL DOCUMENTATION: JOB ID: [id number] Quality ID # 436: Final reports with documentation of one or more dose reduction techniques (e.g., Au tomated exposure control, adjustment of the mA and/or kV according to patient size, use of iterative reconstruction technique) 2010 [employer]- All Rights Reserved Reading location - IP/workstation name: [email or web address]
== END ==
LOC: RAD 09:07
PROVIDERS: ATTEND Internal Medicine
DX: C34.11 Malignant neoplasm of upper lobe, right bronchus or lung (principal)
CPT/HCPCS: 71260; 74177; 82565

== ENCOUNTER → 2019-09-13 | Day surgery (SDC) | payer MEDICARE, OTHER ==
[~2019-09-13] MED LIST changes: +LIDOCAINE 1% INJ-PF (10 MG/ML) 30 ML SDV ONE
--- NOTE | 2019-09-13 09:38 | Operative Report ---
PREOPERATIVE DIAGNOSIS: Spondylolisis without myopathy or radiculopathy M47.818 POSTOPERATIVE DIAGNOSIS:Spondylolisis without myopathy or radiculopathy M47.818 PROCEDURE: 1. Radiofrequency Ablation of bilateral L5 dorsal Ramus 2. Sacroiliac Joint Ablation - Lateral Branches of bilateral S1, S2, S3 DATE OF PROCEDURE: 09/13/2019 ANESTHESIA: Local COMPLICATIONS: None CONSENT: A full description of the procedure was provided including benefits as well as possible complications. All questions were answered and informed consent was given and signed. ASA guidelines for fasting were verified prior to sedation. PROCEDURE IN DETAIL The patient was brought into the fluoroscopy suite and carefully assisted into the prone position on the fluoroscopy table and allowed to adjust to a position of comfort. A grounding pad was placed on the right thigh. The low back and buttocks were widely prepped with a chloraprep solution, allowed to air dry and draped in standard sterile surgical fashion. Local anesthesia was provided by 12 mL of 1 % lidocaine delivered with a 25 g needle. PROCEDURE #1: Radiofrequency Ablation of Dorsal Ramus of bilateral L5. A 17g 100mm radiofrequency introducer needle was placed to the planned anatomic target, guided with intermittent fluoroscopy with a perpendicular approach, to terminally place at the [] sacral ala. The stylets were removed and the radiofrequency probes with a 4mm active tip were then inserted. Needle tip position of the probes were verified in the AP, oblique, and lateral views. At each site, the medial branch nerve was stimulated at 2Hz to a maximum of 1- 2volts determined to finalize safe needle and electrode placement. The patient was awake and responsive during this portion of the procedure. Each target was anesthetized with 2mL of 2 % Sensorcaine anesthesia for lesioning and then each target was lesioned at 80 degrees Celsius for 2 minutes and 30 seconds. Tissue impedences were noted to be between 250 and 500 Ohms. PROCEDURE #2: Radiofrequency Ablation of bilateral S1, S2, S3 Lateral Branches Using the AP fluoroscopic view for visualization of the lateral PSFA as defined by the pre-placed 27-gauge Quincke needles, appropriate skin starting positions were defined. Using the PSFA as a "clock-face", the positions were: S1; bilateral = 1 oclock, 3 oclock and 5 oclock S2; bilateral = 1 oclock, 3 oclock and 5 oclock S3; bilateral = 1 oclock, 5 oclock Using fluoroscopic guidance, a 17g introducer needle was inserted sequentially onto the target positions described above until the introducer tip touched the bony surface of the sacrum. The stylet was withdrawn from the introducer and the radiofrequency probe with a 4 mm active tip was fully inserted into the introducer. A lateral view was obtained for standard reference. At each of the targets, needle placement was verified with the use of multi-planar fluoroscopy. The needle tip position was approximately 7 - 10mm lateral to the PSFA as determined by using an Epsilon ruler. At each site, the lateral branch nerve was stimulated at 2 Hz to a maximum of 1- 2 volts determined to finalize safe needle and electrode placement. The patient was awake and responsive during this portion of the procedure. Each target was anesthetized with 2 mL of 2 % Sensorcaine anesthesia for lesioning and then each target was lesioned at 80 degrees Celsius for 2 minutes and 30 seconds. Tissue impedences were noted to be between 250- 500 Ohms. At the conclusion of the lesioning the needles were removed and bandages placed over the needle placement sites and the patient returned to the supine position on a stretcher and transported to the recovery room without hemodynamic, neurologic, or allergic reactions. Fluoroscopic images were printed for hard copy recording and digitally archived. FLUOROSCOPIC INTERPRETATION: Appropriate epidurogram obtained. Appropriate lesioning of the 10 targets noted. POST PROCEDURE EVALUATION: The patient was comfortable in the recovery room. The patient is aware that pain may worsen before remitting and 4 6 weeks may be required prior to the onset of pain relief. IMPRESSION: 1. Technically successful sacral lateral branch, lumbar dorsal ramus for denervation from L5-S3 on the [] without complication. 2. RTC in 2 weeks. 3. Estimated Blood Loss: None 4. Fluoroscopy time: 30 seconds
== END ==
LOC: RAD 08:14
PROVIDERS: ATTEND Family Medicine
DX: M47.817 Spondylosis without myelopathy or radiculopathy, lumbosacral region (principal)
CPT/HCPCS: 64625; J3490 ×2

== ENCOUNTER → 2019-12-07 | Outpatient (CLI) | payer MEDICARE, OTHER ==
--- NOTE | 2019-12-07 10:59 | RADIOLOGY REPORT (SQ) ---
EXAM DESCRIPTION: CT CHEST WITH; CT ABD/PELVIS WITH IV ONLY IMAGES COMPLETED DATE/TIME: 12/07/2019 10:05 am REASON FOR STUDY: MALIGNANT NEOPLASM OF UPPER LOBE, RIGHT BRONCHUS OR LUNG C34.11 MALIGNANT NEOPLAS M OF UPPER LOBE, RIGHT BRONCHUS OR L CONTRAST TYPE AND DOSE: contrast/concentration: Isovue 350.00 mmol/ml; Total Contrast Delivered: 100 .0 ml; Total Saline Delivered: 51.0 ml RENAL FUNCTION: Creatinine 1.0 COMPARISON: None. TECHNIQUE: CT scan of the chest performed using helical scanning technique with dynamic intravenous contrast injection. Images reviewed with lung, soft tissue and bone windows. Reconstructed coronal a nd sagittal MPR images reviewed. All images stored on PACS. All CT scanners at this facility use dose modulation, iterative reconstruction, and/or weight based d osing when appropriate to reduce radiation dose to as low as reasonably achievable (ALARA). [facility]: Dose Right [facility]: CareDose [facility]: Dose Right [facility]: Teradose 4D [facility]: [employer] RADIATION DOSE: CT Rad equipment meets quality standard of care and radiation dose reduction techniq ues were employed. CTDIvol: 13.9 - 26.0 mGy. DLP: 3206 mGy-cm. . LIMITATIONS: None. FINDINGS: AXILLAE: No adenopathy. CHEST WALL: No masses. No subcutaneous air. LUNGS: Stable right upper lobe mass along the right mediastinal border. On soft tissue windows this measures approximately 2 x 2 cm this is not significantly changed from prior exam. Stable 6.1 mm sat ellite nodule best demonstrated on series 6, image 39 in the right upper lobe. Persistent linear op[place] cities in the superior segment of the right lower lobe. With a sub solid component demonstrated on s eries 6, image 38. This is stable in size as well. 2 to 3 small nodules in the right middle lobe. Largest measures 6.4 mm in diameter this is best demonstrated on series 6, image 62. Additional smal ler right middle lobe nodules best demonstrated on series 6, image 68. These are also unchanged. An d is unchanged. PLEURA: No effusions. No calcifications. THYROID: No masses or significant asymmetry. HILAR AND MEDIASTINAL STRUCTURES: No identified masses or abnormal nodes. AORTA AND GREAT VESSELS: No aneurysm. No dissection. PULMONARY ARTERIES: No identified pulmonary emboli. Study not optimized for the pulmonary arteries. HEART: No pericardial effusion. HARDWARE AND LIFELINES: None. BONES: No significant finding. OTHER: No other significant finding. IMPRESSION: Stable CT of the chest with a 2.2 cm soft tissue mass along the upper right mediastinal border. Numerous additional pulmonary nodules as described. No change in number or size when compar ed to prior exam. COMPARISON: None. RADIATION DOSE: CT Rad equipment meets quality standard of care and radiation dose reduction techniq ues were employed. CTDIvol: 13.9 - 26.0 mGy. DLP: 3206 mGy-cm. mGy. TECHNIQUE: CT scan of the abdomen and pelvis performed with intravenous and oral contrast using natalee rui scanning technique with dynamic intravenous contrast injection. Images reviewed with lung, soft tissue and bone windows. Reconstructed coronal and sagittal MPR images reviewed. Delayed images for evaluation of the urinary system also acquired and evaluated. All images stored on PACS. All CT scanners at this facility use dose modulation, iterative reconstruction, and/or weight based d osing when appropriate to reduce radiation dose to as low as reasonably achievable (ALARA). [facility]: Dose Right [facility]: [employer] [facility]: Dose Right [facility]: Teradose 4D [facility]: [email or web address] FINDINGS: LIVER: Decreased attenuation consistent with fatty infiltration. No focal hepatic lesions . SPLEEN: Normal size. No focal lesions. PANCREAS: No masses. No significant calcifications. No adjacent inflammation or peripancreatic flui d collections. Pancreatic duct not dilated. GALLBLADDER: No identified stones by CT criteria. No inflammatory changes to suggest cholecystitis. ADRENAL GLANDS: No significant masses or asymmetry. RIGHT KIDNEY AND URETER: No solid masses. Small cortical cysts. No significant calcifications. N o hydronephrosis or hydroureter. LEFT KIDNEY AND URETER: No solid masses. Small cortical cysts. No significant calcifications. No hydronephrosis or hydroureter. AORTA AND VESSELS: No aneurysm. No dissection. Renal arteries, SMA, celiac without stenosis. RETROPERITONEUM: No retroperitoneal adenopathy, hemorrhage or masses. LARGE AND SMALL BOWEL: No dilatation. No masses. No wall thickening. APPENDIX: Surgically absent. ABDOMINAL WALL: No hernia or masses. PERITONEAL CAVITY: No free air. No free fluid. No peritoneal implants or masses. PELVIS: No mass or free fluid. Normal bladder. BONES: No significant or acute findings. OTHER: Degenerative changes in the spine. Grade 1 anterolisthesis of L4 on L5. Multilevel disc spac e narrowing. IMPRESSION: No evidence of metastatic disease in the abdomen or pelvis. TECHNICAL DOCUMENTATION: JOB ID: [id number] Quality ID # [id number]: Final reports with documentation of one or more dose reduction techniques (e.g., Au tomated exposure control, adjustment of the mA and/or kV according to patient size, use of iterative reconstruction technique) 2010 [employer]- All Rights Reserved Reading location - IP/workstation name: [email or web address]
== END ==
LOC: RAD 08:58
PROVIDERS: ATTEND Internal Medicine
DX: C34.11 Malignant neoplasm of upper lobe, right bronchus or lung (principal)
CPT/HCPCS: 71260; 74177; 82565

== ENCOUNTER → 2020-01-04 | Outpatient (CLI) | payer MEDICARE, OTHER ==
--- NOTE | 2020-01-04 16:04 | RADIOLOGY REPORT (SQ) ---
EXAM DESCRIPTION: MRI LUMBAR SPINE WITHOUT IMAGES COMPLETED DATE/TIME: 01/04/2020 1:43 pm REASON FOR STUDY: (M43.16)SPONDYLOLISTHESIS, LUMBAR REGION M43.16 SPONDYLOLISTHESIS, LUMBAR REGION COMPARISON: 09/03/2019 and 02/25/2019 TECHNIQUE: Sagittal and Axial imaging includes T1, T2, STIR and gradient echo sequences. Coronal T2/ HASTE imaging. LIMITATIONS: None. FINDINGS: VISUALIZED UPPER ABDOMEN: Limited evaluation. No acute or suspicious findings suggested. SEGMENTATION: No transitional anatomy. The lowest well-developed disc space is labeled L5-S1. ALIGNMENT: Grade 1 anterolisthesis of L4 relative to L5 on the basis of spondylotic change. VERTEBRAE: Intact. BONE MARROW: Reactive endplate changes are seen of the L2 through S1 levels. No infiltrative process . DISC SIGNAL: Intervertebral disc desiccation and loss of height are seen of the L2 through S1 levels. POSTERIOR ELEMENTS: Generally intact. No pars defect evident. HARDWARE: None in the spine. CORD AND CONUS: Normal in size and signal intensity. Conus at the appropriate level. SOFT TISSUES: No aortic aneurysm seen. No bulky retroperitoneal adenopathy or mass. No paraspinal mas s or fluid. L1-L2: No significant spinal stenosis or exit foraminal stenosis. L2-L3: Broad-based posterior disc bulge in the setting of facet arthropathy results in mild left, mod erate right neural foraminal stenosis and moderate central canal stenosis with the appearance of cont act with the traversing L3 nerve roots in the lateral recesses. L3-L4: Circumferential disc bulge in the setting of facet arthropathy results an moderate left, sever e right neural foraminal stenosis with moderate to severe central canal stenosis. L4-L5: Circumferential disc bulge with anterolisthesis results in disc uncovering. This combines wit h facet arthropathy to result in severe left, moderate right neural foraminal narrowing and severe ce ntral canal stenosis with near complete effacement of the CSF signal. L5-S1: Circumferential disc bulge in the setting of facet arthropathy results in mild bilateral neura l foraminal narrowing and moderate central canal narrowing. LOWER THORACIC: Incompletely imaged. No stenosis seen. SACRUM: Visualized upper sacrum intact. OTHER: No other significant findings. IMPRESSION: Multilevel spondylotic changes most significantly affecting the L4/5 level which demonst rates severe central canal and severe left/ moderate right neural foraminal stenosis. Additional fin dings as detailed above. TECHNICAL DOCUMENTATION: JOB ID: [id number] 2010 [email or web address]- All Rights Reserved Reading location - IP/workstation name: [email or web address]
== END ==
LOC: RAD 12:48
PROVIDERS: ATTEND Family Medicine
DX: M43.16 Spondylolisthesis, lumbar region (principal); M51.86 Other intervertebral disc disorders, lumbar region
CPT/HCPCS: 72148

== ENCOUNTER → 2020-03-06 | Outpatient (CLI) | payer MEDICARE, OTHER ==
--- NOTE | 2020-03-06 09:26 | WOMENS IMAGING REPORT ---
EXAM DESCRIPTION: 3D SCREENING MAMMO BILAT IMAGES COMPLETED DATE/TIME: 03/06/2020 9:03 am REASON FOR STUDY: ROUTINE BILATERAL SCREENING;Z12.31 Z12.31 ENCNTR SCREEN MAMMOGRAM FOR MALIGNANT N EOPLASM OF WINIFRED COMPARISON: Priors back to 2017 EXAM PARAMETERS: Views: Standard craniocaudal and mediolateral oblique views of each breast recorded using digital acquisition and breast tomosynthesis. Read with the assistance of CAD. .[facility] - [employer] Control Operator Version 9.2 LIMITATIONS: None. FINDINGS: No suspicious masses, suspicious calcifications or architectural distortion. No areas of c oncern. IMPRESSION: NEGATIVE MAMMOGRAM. BIRADS 1. BREAST DENSITY: b. There are scattered areas of fibroglandular density. BIRAD: ASSESSMENT: 1 NEGATIVE RECOMMENDATION: ROUTINE SCREENING COMMENT: The patient has been notified of the results by letter per MQSA requirements. Additional no tification policies are in place for contacting patient with suspicious or incomplete findings. Quality ID #[id number]: The [employer] recommends an annual screening mammogram for women aged 40 years or over. This facility utilizes a reminder system to ensure that all patients receive reminder letters, and/or direct phone calls for appointments. This includes reminders for routine scr eening mammograms, diagnostic mammograms, or other Breast Imaging Interventions when appropriate. Th is patient will be placed in the appropriate reminder system. TECHNICAL DOCUMENTATION: FINDING NUMBER: (1) ASSESSMENT: (1) JOB ID: [id number] 2010 [employer]- All Rights Reserved Reading location - IP/workstation name: [email or web address]
--- OUTSIDE RECORDS SUMMARY | 2020-03-07 15:06 | XMS REPORT ---
:1940 Author Organization [facility] Address [facility] [place] [address] [place] [address] Care Team Providers Name Role Phone Milind Castro Attending Clinician Unavailable Allergies, Adverse Reactions, Alerts Allergy Allergy Status Severity Reaction(s) Onset Inactive Treating C omments Name Type Date Date Clinician Shrimp Allergy to Active Moderate Rash substance darvacet Allergy to Active Drug (Finding) Raw Shrimp [id number] Active Shells DARVOCET-N Allergy to Active substance Medications Ordered Filled Start Stop Current Ordering Indication Dosage Frequency Signature Comments Components Medication Medication Date Date Medication? Clinician (SIG) Name Name Aranesp 2019-0 2019- No 300 Renal 12-01 12 Insuff/Othe 00:00: 00:00 r 00 :00 Gabapentin 2019-0 Yes 1 717 00:00: 00 Palonosetro 2019-0 No .25mg Palonosetr n HCl 5-28 on HCl 00:00: 00 Dexamethaso 2019-0 No 20mg Dexamethas ne Sodium 5-28 one Sodium Phosphate 00:00: Phosphate 00 Famotidine 2019-0 No 20mg Famotidine 5-28 00:00: 00 Sodium 2019-0 No 70mL Sodium Chloride 5-28 Chloride 00:00: 00 Paraplatin 2019-0 No 348mg Paraplatin 5-28 00:00: 00 Palonosetro 2019-0 No .25mg Palonosetr n HCl 5-07 on HCl 00:00: 00 Dexamethaso 2019-0 No 20mg Dexamethas ne Sodium 5-07 one Sodium Phosphate 00:00: Phosphate 00 Famotidine 2019-0 No 20mg Famotidine 5-07 00:00: 00 Sodium 2019-0 No 100mL Sodium Chloride 5-07 Chloride 00:00: 00 Paraplatin 2019-0 No 305mg Paraplatin 5-07 00:00: 00 Medrol 2019-0 Yes 1 5-07 00:00: 00 Red Blood 2019-0 2019- No 2U Cell 3-26 07-18 Transfusion 00:00: 00:00 00 :00 Hydration 2019-0 2019- No 1000mL 1000mL NS 3-15 - 00:00: 00:00 00 :00 Palonosetro 2019-0 No .25mg Palonosetr n HCl 3-08 on HCl 00:00: 00 Dexamethaso 2019-0 No 10mg Dexamethas ne Sodium 3-08 one Sodium Phosphate 00:00: Phosphate 00 Famotidine 2019-0 No 20mg Famotidine 3-08 00:00: 00 Sodium 2019-0 No 70mL Sodium Chloride 3-08 Chloride 00:00: 00 Paraplatin 2019-0 No 120mg Paraplatin 3-08 00:00: 00 Palonosetro 2019-0 No .25mg Palonosetr n HCl 3-01 on HCl 00:00: 00 Dexamethaso 2019-0 No 10mg Dexamethas ne Sodium 3-01 one Sodium Phosphate 00:00: Phosphate 00 Famotidine 2019-0 No 20mg Famotidine 3-01 00:00: 00 Sodium 2019-0 No 70mL Sodium Chloride 3-01 Chloride 00:00: 00 Paraplatin 2019-0 No 151mg Paraplatin 3-01 00:00: 00 Palonosetro 2019-0 No .25mg Palonosetr n HCl 2-22 on HCl 00:00: 00 Dexamethaso 2019-0 No 10mg Dexamethas ne Sodium 2-22 one Sodium Phosphate 00:00: Phosphate 00 Famotidine 2019-0 No 20mg Famotidine 2-22 00:00: 00 Sodium 2019-0 No 70mL Sodium Chloride 2-22 Chloride 00:00: 00 Paraplatin 2019-0 No 123mg Paraplatin 2-22 00:00: 00 Aranesp-Sweta 2019-0 2019- No 500 mo Induced 2-22 06-25 Anemia 00:00: 00:00 00 :00 Palonosetro 2019-0 No .25mg Palonosetr n HCl 2-15 on HCl 00:00: 00 Dexamethaso 2019-0 No 10mg Dexamethas ne Sodium 2-15 one Sodium Phosphate 00:00: Phosphate 00 Sodium 2019-0 No 70mL Sodium Chloride 2-15 Chloride 00:00: 00 DiphenhydrA 2019-0 2019- No 50mg MINE HCl 2-15 05-28 00:00: 00:00 00 :00 Famotidine 2019-0 2019- No 20mg Famotidine 06-09 00:00: 00:00 00 :00 Paclitaxel 2019-0 2019- No 249mg 06-09 00:00: 00:00 00 :00 Paraplatin 2019-0 2019- No 185mg Paraplatin 06-09 00:00: 00:00 00 :00 Palonosetro 2019-0 No .25mg Palonosetr n HCl - on HCl 00:00: 00 Dexamethaso 2019-0 No 10mg Dexamethas ne Sodium 05-15 one Sodium Phosphate 00:00: Phosphate 00 Sodium 2019-0 No 70mL Sodium Chloride 1-21 Chloride 00:00: 00 Sodium 2018- No 70mL Sodium Chloride Chloride 00:00: 00 Ondansetron 2017- Yes 8mg HCl 00:00: 00 Promethazin 2018- Yes 25mg e HCl 00:00: 00 Dexamethaso 2017- 2019- No 10mg Dexamethas ne Sodium 09-19 one Sodium Phosphate 00:00: 00:00 Phosphate 00 :00 Palonosetro 2017- 2019- No .25mg Palonosetr n HCl 09-19 on HCl 00:00: 00:00 00 :00 Sodium 2017- 2019- No 70mL Chloride 09-19 00:00: 00:00 00 :00 Carboplatin 2018- 2019- No 438mg 05-15 00:00: 00:00 00 :00 Pegfilgrast 2017- 2019- No 6mg in On-Body 05-15 Injector 00:00: 00:00 Kit 00 :00 Pemetrexed 2017- 2019- No 950mg Disodium 05-15 00:00: 00:00 00 :00 Folic Acid 2018- 2019- No 1 06-08 00:00: 15:56 00 :39 Vitamin 2018- 2018- No 1000 Vitamin B-12 2-07 04-14 B-12 00:00: 00:00 00 :00 Acetaminoph Yes 2 en Allopurinol Yes 1 AmLODIPine Yes 1 Besylate Aspirin Low Yes 1 Dose Atorvastati Yes 1 n Calcium Azelastine Yes 1 HCl Calcium Yes 1 Clobetasol Yes 1 Propionate Colchicine Yes 1 Fenofibrate Yes 1 Fluocinonid Yes 1 e Fluticasone Yes 1 Propionate MetFORMIN Yes 1 HCl Metoprolol Yes 1 Succinate ER Multivitami Yes 1 ns Probenecid Yes 1 Telmisartan Yes 1 Vitamin C Yes 1 Vitamin D3 Yes 1 amlodipine No amlodipine 10 mg 10 mg tablet tablet daily daily azelastine No azelastine 137 mcg 137 mcg (0.1 %) (0.1 %) nasal spray nasal aerosol one spray spray by aerosol intranasal one spray route PRN by intranasal route PRN colchicine No colchicine 0.6 mg 0.6 mg tablet tablet doxycycline No doxycyclin monohydrate e 100 mg monohydrat capsule 1 e 100 mg tab po qd capsule 1 tab po qd ketoconazol No ketoconazo e 2 % le 2 % shampoo shampoo Kionex No Kionex (with (with sorbitol) sorbitol) 15 15 gram-19.3 gram-19.3 gram/60 mL gram/60 mL oral oral suspension suspension levofloxaci No levofloxac n 750 mg in 750 mg tablet tablet losartan No losartan 100 mg 100 mg tablet 1 tablet 1 tab po qd tab po qd metformin No metformin 850 mg 850 mg tablet 1 tablet 1 tab po qd tab po qd omeprazole No omeprazole 20 mg 20 mg capsule,del capsule,de ayed layed release 1 release 1 tab po qd tab po qd ondansetron No ondansetro 8 mg n 8 mg disintegrat disintegra ing tablet ting tablet sulfamethox No sulfametho azole 800 xazole 800 mg-trimetho mg-trimeth prim 160 mg oprim 160 tablet mg tablet Antacid No Antacid Regular Regular Strength Strength 200 mg-200 200 mg-200 mg-20 mg/5 mg-20 mg/5 mL oral mL oral suspension suspension fluocinonid No fluocinoni e 0.05 % de 0.05 % topical topical solution solution gabapentin No gabapentin 100 mg 100 mg capsule 1 capsule 1 tab po tid tab po tid ondansetron No ondansetro HCl 8 mg n HCl 8 mg tablet 1 tablet 1 tab po qd tab po qd promethazin No promethazi e 25 mg ne 25 mg tablet tablet Calcium 500 No 1 Q1D Calcium 500 mg 500 500 mg calcium calcium (1,250 mg) (1,250 mg) chewable chewable tablet Take tablet 1 tablet Take 1 every day tablet by oral every day route. by oral route. Valium 5 mg No Valium 5 tablet Take mg tablet 1 tablet by Take 1 mouth 30 tablet by minutes mouth 30 prior to minutes your prior to appointment your , take 2nd appointmen tablet with t, take you and 2nd tablet take if with you needed and take if needed Zyrtec 10 No 1capsul Q1D Zyrtec 10 mg capsule e(s) mg capsule Take 1 Take 1 capsule capsule every day every day by oral by oral route. route. Losartan 2018- No 1 Potassium 03-02 09:27 :39 Problems Condition Condition Condition Status Onset Resolution Last Treatin g Comments Name Details Category Date Date Treatment Clinician Date Pain in Pain in Problem Active 2018-04 bilateral Bilateral 2-10 legs Legs 00:00: 00 Anemia Anemia Diagnosis active secondary secondary 718 to renal to renal 00:00: failure failure 00 Chronic Chronic Diagnosis active kidney kidney 7-18 disease disease 00:00: stage 3 stage 3 00 Proteinuria Proteinuria Diagnosis active 5-28 00:00: 00 Anemia due Anemia due Diagnosis active to and to and 3-15 following following 00:00: chemotherap chemotherap 00 y y Patient Patient Diagnosis active encounter encounter 3-15 status status 00:00: 00 Anemia due Anemia due Diagnosis active to and to and 2-15 following following 00:00: chemotherap chemotherap 00 y y Drug-induce Drug-induce Diagnosis active 2017-04 d d 2-31 neutropenia neutropenia 00:00: 00 Patient Patient Diagnosis active 2017-04 encounter encounter 2-27 status status 00:00: 00 Nutritional Nutritional Diagnosis active 2017-04 anemia anemia 2-14 00:00: 00 Hyperlipide Hyperlipide Problem Active tete tete 8-14 00:00: 00 Gout Gout Problem Active 8-14 00:00: 00 Pain in Pain in Problem Active left lower Left Lower 8-14 limb Limb 00:00: 00 Bilateral Bilateral Problem Active knee pain Knee Pain 8-14 00:00: 00 Malignant Malignant Problem Active tumor of Tumor of 1-01 lung Lung 00:00: 00 Diabetes Diabetes Problem Active 2016-04 mellitus Mellitus 0-03 00:00: 00 Hypertensiv Hypertensiv Problem Active 2016-04 e disorder e Disorder 0- 00:00: 00 Arthritis Arthritis Problem Active 2016-04 003 00:00: 00 Low back Low Back Problem Active 2016-04 pain Pain 0-03 00:00: 00 Dehydration Dehydration Diagnosis active 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 Procedures Procedure Date / Time Performed Performing Clinician Devic e XR, lumbar spine 2020-01-02 00:00:00 MRI, lumbar spine, w/o contrast 2020-01-02 00:00:00 Radiofrequency Ablation (Surg) 2019-09-13 00:00:00 radiofrequency ablation (SURG) 2019-06-20 00:00:00 peripheral nerve block (PROC) 2019-06-13 00:00:00 RADIOLOGIC EXAM TIBIA AND FIBULA 2 2019-04-03 00:00:00 VIEWS Flu vaccine 65+ 2019-01-23 00:00:00 Bronchoscopy 2018-03-25 00:00:00 XR, tibia + fibula 2018-03-15 00:00:00 Radiofrequency Ablation (Surg) 2017-03-24 00:00:00 Flu vaccine-high dose 2016-12-24 00:00:00 EGD 2016-10-23 00:00:00 colonoscopy 2016-09-23 00:00:00 PCV13 2014-02-23 00:00:00 Zostavax 2013-01-23 00:00:00 Tdap 2011-04-25 00:00:00 PPV23 2009-09-23 00:00:00 H1N1 2009-05-26 00:00:00 Knee Replacement X2 2003-04-25 00:00:00 BREAST SURGERY PROCEDURE Knee Replacement Appendectomy Tonsillectomy appendectomy breast biopsy tonsillectomy Gout Results Test Description Test Time Test Comments Text Results Atomic Results Result Comments WBC 2019-12-04 11:09:00 Test Item Value Reference Range Comments WBC (test code = WBC) 4.0000 4.0000-10.0000 Lymphocytes % (test code = Lymphocytes %) 23.7000 % 22.400 0-43.6000 MID% (test code = MID%) 6.4000 % 1.2000-11.2000 Neutrophils % (test code = Neutrophils %) 69.9000 % 48.900 0-69.9000 Lymphocytes (test code = Lymphocytes) 0.9000 1.2000-3.2 000 MID (test code = MID) 0.3000 0.1000-1.1000 Neutrophils (test code = Neutrophils) 2.8000 1.5000-6.7 000 RBC (test code = RBC) 2.8600 3.7000-4.9000 HGB (test code = HGB) 10.1000 g/dL 11.2000-18.0000 HCT (test code = HCT) 30.7000 % 34.0000-44.0000 MCV (test code = MCV) 107.4000 fL 80.0000-94.0000 MCH (test code = MCH) 35.4000 pg 27.0000-34.0000 MCHC (test code = MCHC) 33.0000 g/dL 31.5000-36.0000 RDW (test code = RDW) 16.2000 11.0000-18.0000 PLT (test code = PLT) 130.0000 140.0000-440.0000 MPV (test code = MPV) 8.3000 fL 6.8000-10.6000 [id number] 11:09:00 Test Item Value Reference Range Comments Creatinine (test code = Creatinine) 1.0000 mg/dL 0.5000-1.200 0 Cr Clearance (Est) (test code = Cr 69.7700 75.0000-115.0 000 Clearance (Est)) Glucose (test code = Glucose) 132.0000 mg/dL 70.0000-118.0000 BUN (test code = BUN) 24.0000 mg/dL 7.0000-22.0000 Sodium (test code = Sodium) 137.0000 mmol/L 128.0000-145.0000 Potassium (test code = Potassium) 4.6000 mmol/L 3.6000-5.1000 Chloride (test code = Chloride) 103.0000 mmol/L 96.0000-108.0000 CO2 (test code = CO2) 31.0000 mmol/L 18.0000-33.0000 Calcium (test code = Calcium) 9.5000 mg/dL 8.0000-10.3000 Alkaline Phosphatase (test code = Alkaline 31.0000 42.00 00-141.0000 Phosphatase) ALT (SGPT) (test code = ALT (SGPT)) 18.0000 10.0000-47.0 000 AST (SGOT) (test code = AST (SGOT)) 26.0000 11.0000-37.0 000 Bilirubin, Total (test code = Bilirubin, 0.5000 mg/dL 0.0000- 1.6000 Total) Albumin (test code = Albumin) 3.8000 g/dL 3.5000-5.5000 Protein, Total (test code = Protein, 5.9000 g/dL 6.4000-8.10 00 Total) eGFR -Macanese (test code = eGFR 65.0000 60.0000- 200.0000 -Macanese) eGFR Vfj-Mbrqkjs-Inawerdh (test code = 54.0000 60.0000-2 00.0000 eGFR Rul-Gkenozq-Ffhrhzli) [id number] 10:18:00 Test Item Value Reference Range Comments WBC (test code = WBC) 4.1000 4.0000-10.0000 Lymphocytes % (test code = Lymphocytes %) 23.2000 % 22.400 0-43.6000 MID% (test code = MID%) 5.4000 % 1.2000-11.2000 Neutrophils % (test code = Neutrophils %) 71.4000 % 48.900 0-69.9000 Lymphocytes (test code = Lymphocytes) 0.9000 1.2000-3.2 000 MID (test code = MID) 0.3000 0.1000-1.1000 Neutrophils (test code = Neutrophils) 2.9000 1.5000-6.7 000 RBC (test code = RBC) 3.0800 3.7000-4.9000 HGB (test code = HGB) 10.2000 g/dL 11.2000-18.0000 HCT (test code = HCT) 33.3000 % 34.0000-44.0000 MCV (test code = MCV) 108.3000 fL 80.0000-94.0000 MCH (test code = MCH) 33.1000 pg 27.0000-34.0000 MCHC (test code = MCHC) 30.6000 g/dL 31.5000-36.0000 RDW (test code = RDW) 17.3000 11.0000-18.0000 PLT (test code = PLT) 175.0000 140.0000-440.0000 MPV (test code = MPV) 8.5000 fL 6.8000-10.6000 [id number] 10:18:00 Test Item Value Reference Range Comments Creatinine (test code = Creatinine) 0.9000 mg/dL 0.5000-1.200 0 Cr Clearance (Est) (test code = Cr 77.5200 75.0000-115.0 000 Clearance (Est)) Glucose (test code = Glucose) 169.0000 mg/dL 70.0000-118.0000 BUN (test code = BUN) 28.0000 mg/dL 7.0000-22.0000 Sodium (test code = Sodium) 136.0000 mmol/L 128.0000-145.0000 Potassium (test code = Potassium) 4.6000 mmol/L 3.6000-5.1000 Chloride (test code = Chloride) 104.0000 mmol/L 96.0000-108.0000 CO2 (test code = CO2) 28.0000 mmol/L 18.0000-33.0000 Calcium (test code = Calcium) 9.4100 mg/dL 8.0000-10.3000 Alkaline Phosphatase (test code = Alkaline 31.0000 42.00 00-141.0000 Phosphatase) ALT (SGPT) (test code = ALT (SGPT)) 15.0000 10.0000-47.0 000 AST (SGOT) (test code = AST (SGOT)) 18.0000 11.0000-37.0 000 Bilirubin, Total (test code = Bilirubin, 0.4000 mg/dL 0.0000- 1.6000 Total) Albumin (test code = Albumin) 3.7000 g/dL 3.5000-5.5000 Protein, Total (test code = Protein, 5.7000 g/dL 6.4000-8.10 00 Total) eGFR -Macanese (test code = eGFR 74.0000 60.0000- 200.0000 -Macanese) eGFR Zav-Qbsmbuh-Iqwjapid (test code = 61.0000 60.0000-2 00.0000 eGFR Bqn-Mfknuro-Bhoxybwy) [id number] 13:05:00 Test Item Value Reference Range Comments WBC (test code = WBC) 4.3000 4.0000-10.0000 Lymphocytes % (test code = Lymphocytes %) 24.3000 % 22.400 0-43.6000 MID% (test code = MID%) 5.8000 % 1.2000-11.2000 Neutrophils % (test code = Neutrophils %) 69.9000 % 48.900 0-69.9000 Lymphocytes (test code = Lymphocytes) 1.0000 1.2000-3.2 000 MID (test code = MID) 0.3000 0.1000-1.1000 Neutrophils (test code = Neutrophils) 3.0000 1.5000-6.7 000 RBC (test code = RBC) 2.9300 3.7000-4.9000 HGB (test code = HGB) 10.1000 g/dL 11.2000-18.0000 HCT (test code = HCT) 31.4000 % 34.0000-44.0000 MCV (test code = MCV) 107.4000 fL 80.0000-94.0000 MCH (test code = MCH) 34.7000 pg 27.0000-34.0000 MCHC (test code = MCHC) 32.3000 g/dL 31.5000-36.0000 RDW (test code = RDW) 16.4000 11.0000-18.0000 PLT (test code = PLT) 120.0000 140.0000-440.0000 MPV (test code = MPV) 8.4000 fL 6.8000-10.6000 [id number] 13:05:00 Test Item Value Reference Range Comments Creatinine (test code = Creatinine) 1.1000 mg/dL 0.5000-1.200 0 Cr Clearance (Est) (test code = Cr 63.7500 75.0000-115.0 000 Clearance (Est)) Glucose (test code = Glucose) 78.0000 mg/dL 70.0000-118.0000 BUN (test code = BUN) 22.0000 mg/dL 7.0000-22.0000 Sodium (test code = Sodium) 141.0000 mmol/L 128.0000-145.0000 Potassium (test code = Potassium) 5.0000 mmol/L 3.6000-5.1000 Chloride (test code = Chloride) 103.0000 mmol/L 96.0000-108.0000 CO2 (test code = CO2) 28.0000 mmol/L 18.0000-33.0000 Calcium (test code = Calcium) 9.9000 mg/dL 8.0000-10.3000 Alkaline Phosphatase (test code = Alkaline 34.0000 42.00 00-141.0000 Phosphatase) ALT (SGPT) (test code = ALT (SGPT)) 22.0000 10.0000-47.0 000 AST (SGOT) (test code = AST (SGOT)) 31.0000 11.0000-37.0 000 Bilirubin, Total (test code = Bilirubin, 0.6000 mg/dL 0.0000- 1.6000 Total) Albumin (test code = Albumin) 3.6000 g/dL 3.5000-5.5000 Protein, Total (test code = Protein, 6.4000 g/dL 6.4000-8.10 00 Total) eGFR -Macanese (test code = eGFR 58.0000 60.0000- 200.0000 -Macanese) eGFR Zve-Obqpwjy-Rblzmgsg (test code = 48.0000 60.0000-2 00.0000 eGFR Nuj-Keockap-Rfuvjszb) [id number] 09:45:00 Test Item Value Reference Range Comments WBC (test code = WBC) 6.6000 4.0000-10.0000 Lymphocytes % (test code = Lymphocytes %) 18.1000 % 22.400 0-43.6000 MID% (test code = MID%) 4.6000 % 1.2000-11.2000 Neutrophils % (test code = Neutrophils %) 77.3000 % 48.900 0-69.9000 Lymphocytes (test code = Lymphocytes) 1.2000 1.2000-3.2 000 MID (test code = MID) 0.3000 0.1000-1.1000 Neutrophils (test code = Neutrophils) 5.1000 1.5000-6.7 000 RBC (test code = RBC) 2.9700 3.7000-4.9000 HGB (test code = HGB) 10.3000 g/dL 11.2000-18.0000 HCT (test code = HCT) 31.6000 % 34.0000-44.0000 MCV (test code = MCV) 106.1000 fL 80.0000-94.0000 MCH (test code = MCH) 34.6000 pg 27.0000-34.0000 MCHC (test code = MCHC) 32.6000 g/dL 31.5000-36.0000 RDW (test code = RDW) 16.4000 11.0000-18.0000 PLT (test code = PLT) 130.0000 140.0000-440.0000 MPV (test code = MPV) 7.2000 fL 6.8000-10.6000 [id number] 09:45:00 Test Item Value Reference Range Comments Creatinine (test code = Creatinine) 1.1000 mg/dL 0.5000-1.200 0 Cr Clearance (Est) (test code = Cr 63.7500 75.0000-115.0 000 Clearance (Est)) Glucose (test code = Glucose) 98.0000 mg/dL 70.0000-118.0000 BUN (test code = BUN) 31.0000 mg/dL 7.0000-22.0000 Sodium (test code = Sodium) 135.0000 mmol/L 128.0000-145.0000 Potassium (test code = Potassium) 4.9000 mmol/L 3.6000-5.1000 Chloride (test code = Chloride) 101.0000 mmol/L 96.0000-108.0000 CO2 (test code = CO2) 30.0000 mmol/L 18.0000-33.0000 Calcium (test code = Calcium) 9.5000 mg/dL 8.0000-10.3000 Alkaline Phosphatase (test code = Alkaline 35.0000 42.00 00-141.0000 Phosphatase) ALT (SGPT) (test code = ALT (SGPT)) 17.0000 10.0000-47.0 000 AST (SGOT) (test code = AST (SGOT)) 19.0000 11.0000-37.0 000 Bilirubin, Total (test code = Bilirubin, 0.4000 mg/dL 0.0000- 1.6000 Total) Albumin (test code = Albumin) 3.9000 g/dL 3.5000-5.5000 Protein, Total (test code = Protein, 6.0000 g/dL 6.4000-8.10 00 Total) eGFR -Macanese (test code = eGFR 58.0000 60.0000- 200.0000 -Macanese) eGFR Pre-Puciiak-Erbmdfzb (test code = 48.0000 60.0000-2 00.0000 eGFR Fju-Wegmipv-Qoaepnlv) [id number] 14:27:00 Test Item Value Reference Range Comments WBC (test code = WBC) 4.4000 4.0000-10.0000 Lymphocytes % (test code = Lymphocytes %) 24.1000 % 22.400 0-43.6000 MID% (test code = MID%) 5.5000 % 1.2000-11.2000 Neutrophils % (test code = Neutrophils %) 70.4000 % 48.900 0-69.9000 Lymphocytes (test code = Lymphocytes) 1.0000 1.2000-3.2 000 MID (test code = MID) 0.3000 0.1000-1.1000 Neutrophils (test code = Neutrophils) 3.1000 1.5000-6.7 000 RBC (test code = RBC) 2.8900 3.7000-4.9000 HGB (test code = HGB) 9.8000 g/dL 11.2000-18.0000 HCT (test code = HCT) 30.7000 % 34.0000-44.0000 MCV (test code = MCV) 106.0000 fL 80.0000-94.0000 MCH (test code = MCH) 34.1000 pg 27.0000-34.0000 MCHC (test code = MCHC) 32.1000 g/dL 31.5000-36.0000 RDW (test code = RDW) 15.3000 11.0000-18.0000 PLT (test code = PLT) 143.0000 140.0000-440.0000 MPV (test code = MPV) 8.0000 fL 6.8000-10.6000 [id number] 08:47:00 Test Item Value Reference Range Comments WBC (test code = WBC) 4.2000 4.0000-10.0000 Lymphocytes % (test code = Lymphocytes %) 22.3000 % 22.400 0-43.6000 MID% (test code = MID%) 5.8000 % 1.2000-11.1999 Neutrophils % (test code = Neutrophils %) 71.9000 % 48.900 0-69.9000 Lymphocytes (test code = Lymphocytes) 0.9000 1.2000-3.2 000 MID (test code = MID) 0.3000 0.1000-1.1000 Neutrophils (test code = Neutrophils) 3.0000 1.5000-6.7 000 RBC (test code = RBC) 3.1100 3.7000-4.9000 HGB (test code = HGB) 10.7000 g/dL 11.2000-18.0000 HCT (test code = HCT) 32.6000 % 34.0000-44.0000 MCV (test code = MCV) 104.9000 fL 80.0000-94.0000 MCH (test code = MCH) 34.6000 pg 27.0000-34.0000 MCHC (test code = MCHC) 33.0000 g/dL 31.5000-36.0000 RDW (test code = RDW) 15.7000 11.0000-18.0000 PLT (test code = PLT) 153.0000 140.0000-440.0000 MPV (test code = MPV) 8.0000 fL 6.8000-10.6000 [id number] 09:52:00 Test Item Value Reference Range Comments WBC (test code = WBC) 3.5000 4.0000-10.0000 Lymphocytes % (test code = Lymphocytes %) 21.3000 % 22.400 0-43.6000 MID% (test code = MID%) 7.7000 % 1.2000-11.1999 Neutrophils % (test code = Neutrophils %) 71.0000 % 48.900 0-69.9000 Lymphocytes (test code = Lymphocytes) 0.7000 1.2000-3.2 000 MID (test code = MID) 0.3000 0.1000-1.1000 Neutrophils (test code = Neutrophils) 2.5000 1.5000-6.7 000 RBC (test code = RBC) 3.2200 3.7000-4.9000 HGB (test code = HGB) 10.4000 g/dL 11.2000-18.0000 HCT (test code = HCT) 33.6000 % 34.0000-44.0000 MCV (test code = MCV) 104.2000 fL 80.0000-94.0000 MCH (test code = MCH) 32.3000 pg 27.0000-34.0000 MCHC (test code = MCHC) 30.9000 g/dL 31.5000-36.0000 RDW (test code = RDW) 17.0000 11.0000-18.0000 PLT (test code = PLT) 137.0000 140.0000-440.0000 MPV (test code = MPV) 8.0000 fL 6.8000-10.6000 [id number] 09:17:00 Test Item Value Reference Range Comments WBC (test code = WBC) 4.3000 4.0000-10.0000 Lymphocytes % (test code = Lymphocytes %) 20.8000 % 22.400 0-43.6000 MID% (test code = MID%) 5.9000 % .1999-11.1999 Neutrophils % (test code = Neutrophils %) 73.3000 % 48.900 0-69.9000 Lymphocytes (test code = Lymphocytes) 0.9000 1.2000-3.2 000 MID (test code = MID) 0.3000 0.1000-1.1000 Neutrophils (test code = Neutrophils) 3.1000 1.5000-6.7 000 RBC (test code = RBC) 2.9500 3.7000-4.9000 HGB (test code = HGB) 9.9000 g/dL 11.2000-18.0000 HCT (test code = HCT) 30.3000 % 34.0000-44.0000 MCV (test code = MCV) 102.6000 fL 80.0000-94.0000 MCH (test code = MCH) 33.6000 pg 27.0000-34.0000 MCHC (test code = MCHC) 32.7000 g/dL 31.5000-36.0000 RDW (test code = RDW) 16.5000 11.0000-18.0000 PLT (test code = PLT) 145.0000 140.0000-440.0000 MPV (test code = MPV) 7.4000 fL 6.8000-10.6000 [id number] 09:40:00 Test Item Value Reference Range Comments WBC (test code = WBC) 4.1000 4.0000-10.0000 Lymphocytes % (test code = Lymphocytes %) 16.9000 % 22.400 0-43.6000 MID% (test code = MID%) 5.3000 % 1.2000-11.2000 Neutrophils % (test code = Neutrophils %) 77.8000 % 48.900 0-69.9000 Lymphocytes (test code = Lymphocytes) 0.7000 1.2000-3.2 000 MID (test code = MID) 0.2000 0.1000-1.1000 Neutrophils (test code = Neutrophils) 3.2000 1.5000-6.7 000 RBC (test code = RBC) 2.9900 3.7000-4.9000 HGB (test code = HGB) 10.1000 g/dL 11.2000-18.0000 HCT (test code = HCT) 31.7000 % 34.0000-44.0000 MCV (test code = MCV) 106.0000 fL 80.0000-94.0000 MCH (test code = MCH) 33.8000 pg 27.0000-34.0000 MCHC (test code = MCHC) 31.9000 g/dL 31.5000-36.0000 RDW (test code = RDW) 16.5000 11.0000-18.0000 PLT (test code = PLT) 147.0000 140.0000-440.0000 MPV (test code = MPV) 8.1000 fL 6.8000-10.6000 [id number] 08:56:00 Test Item Value Reference Range Comments WBC (test code = WBC) 3.5000 4.0000-10.0000 Lymphocytes % (test code = Lymphocytes %) 20.6000 % 22.400 0-43.6000 MID% (test code = MID%) 6.0000 % 1.2000-11.2000 Neutrophils % (test code = Neutrophils %) 73.4000 % 48.900 0-69.9000 Lymphocytes (test code = Lymphocytes) 0.7000 1.2000-3.2 000 MID (test code = MID) 0.2000 0.1000-1.1000 Neutrophils (test code = Neutrophils) 2.6000 1.5000-6.7 000 RBC (test code = RBC) 3.0000 3.7000-4.9000 HGB (test code = HGB) 10.2000 g/dL 11.2000-18.0000 HCT (test code = HCT) 31.3000 % 34.0000-44.0000 MCV (test code = MCV) 104.2000 fL 80.0000-94.0000 MCH (test code = MCH) 34.1000 pg 27.0000-34.0000 MCHC (test code = MCHC) 32.7000 g/dL 31.5000-36.0000 RDW (test code = RDW) 16.0000 11.0000-18.0000 PLT (test code = PLT) 120.0000 140.0000-440.0000 MPV (test code = MPV) 8.0000 fL 6.8000-10.6000 [id number] 09:41:00 Test Item Value Reference Range Comments Creatinine (test code = Creatinine) 1.1900 mg/dL 0.5700-1.000 0 Cr Clearance (Est) (test code = Cr 57.0200 75.0000-115.0 000 Clearance (Est)) Glucose (test code = Glucose) 114.0000 mg/dL 65.0000-99.0000 BUN (test code = BUN) 24.0000 mg/dL 8.0000-27.0000 eGFR Zcj-Wwzulzj-Xwtaqwzc (test code = 44.0000 eGFR Vis-Zvlrieu-Ykverutj) eGFR -Macanese (test code = eGFR 51.0000 -Macanese) BUN/Creat Ratio (test code = BUN/Creat 20.0000 12.0000-2 8.0000 Ratio) Sodium (test code = Sodium) 141.0000 mmol/L 134.0000-144.0000 Potassium (test code = Potassium) 4.5000 mmol/L 3.5000-5.2000 Chloride (test code = Chloride) 101.0000 mmol/L 96.0000-106.0000 CO2 (test code = CO2) 24.0000 mmol/L 20.0000-29.0000 Calcium (test code = Calcium) 9.4000 mg/dL 8.7000-10.3000 Protein, Total (test code = Protein, 5.9000 g/dL 6.0000-8.50 00 Total) Albumin (test code = Albumin) 3.8000 g/dL 3.5000-4.8000 Globulin (test code = Globulin) 2.1000 g/dL 1.5000-4.5000 A/G Ratio (test code = A/G Ratio) 1.8000 1.2000-2.2000 Bilirubin, Total (test code = Bilirubin, 0.3000 mg/dL 0.0000- 1.2000 Total) Alkaline Phosphatase (test code = Alkaline 35.0000 39.00 00-117.0000 Phosphatase) AST (SGOT) (test code = AST (SGOT)) 21.0000 0.0000-40.00 00 ALT (SGPT) (test code = ALT (SGPT)) 15.0000 0.0000-32.00 00 Iron, Total (test code = Iron, Total) 75.0000 27.0000-13 9.0000 TIBC (test code = TIBC) 348.0000 250.0000-450.0000 UIBC (test code = UIBC) 273.0000 118.0000-369.0000 % Iron Saturation (test code = % Iron 22.0000 % 15.0000-55 .0000 Saturation) Ferritin (test code = Ferritin) 409.0000 ng/mL 15.0000-150.0000 [id number] 09:07:00 Test Item Value Reference Range Comments WBC (test code = WBC) 4.0000 4.0000-10.0000 Lymphocytes % (test code = Lymphocytes %) 12.9000 % 22.400 0-43.6000 MID% (test code = MID%) 4.6000 % 1.2000-11.2000 Neutrophils % (test code = Neutrophils %) 82.5000 % 48.900 0-69.9000 Lymphocytes (test code = Lymphocytes) 0.5000 1.2000-3.2 000 MID (test code = MID) 0.2000 0.1000-1.1000 Neutrophils (test code = Neutrophils) 3.3000 1.5000-6.7 000 RBC (test code = RBC) 2.7700 3.7000-4.9000 HGB (test code = HGB) 9.6000 g/dL 11.2000-18.0000 HCT (test code = HCT) 29.4000 % 34.0000-44.0000 MCV (test code = MCV) 105.9000 fL 80.0000-94.0000 MCH (test code = MCH) 34.8000 pg 27.0000-34.0000 MCHC (test code = MCHC) 32.8000 g/dL 31.5000-36.0000 RDW (test code = RDW) 15.3000 11.0000-18.0000 PLT (test code = PLT) 123.0000 140.0000-440.0000 MPV (test code = MPV) 8.1000 fL 6.8000-10.6000 [id number] 09:44:00 Test Item Value Reference Range Comments WBC (test code = WBC) 4.2000 4.0000-10.0000 Lymphocytes % (test code = Lymphocytes %) 16.0000 % 22.400 0-43.6000 MID% (test code = MID%) 4.3000 % 1.2000-11.2000 Neutrophils % (test code = Neutrophils %) 79.7000 % 48.900 0-69.9000 Lymphocytes (test code = Lymphocytes) 0.6000 1.2000-3.2 000 MID (test code = MID) 0.2000 0.1000-1.1000 Neutrophils (test code = Neutrophils) 3.4000 1.5000-6.7 000 RBC (test code = RBC) 2.7300 3.7000-4.9000 HGB (test code = HGB) 9.3000 g/dL 11.2000-18.0000 HCT (test code = HCT) 29.8000 % 34.0000-44.0000 MCV (test code = MCV) 109.2000 fL 80.0000-94.0000 MCH (test code = MCH) 34.1000 pg 27.0000-34.0000 MCHC (test code = MCHC) 31.2000 g/dL 31.5000-36.0000 RDW (test code = RDW) 16.3000 11.0000-18.0000 PLT (test code = PLT) 125.0000 140.0000-440.0000 MPV (test code = MPV) 8.7000 fL 6.8000-10.6000 [id number] 09:42:00 Test Item Value Reference Range Comments WBC (test code = WBC) 4.0000 4.0000-10.0000 Lymphocytes % (test code = Lymphocytes %) 20.8000 % 22.400 0-43.6000 MID% (test code = MID%) 5.6000 % .1999- Neutrophils % (test code = Neutrophils %) 73.6000 % 48.900 0-69.9000 Lymphocytes (test code = Lymphocytes) 0.8000 1.2000-3.2 000 MID (test code = MID) 0.2000 0.1000-1.1000 Neutrophils (test code = Neutrophils) 3.0000 1.5000-6.7 000 RBC (test code = RBC) 2.8800 3.7000-4.9000 HGB (test code = HGB) 10.0000 g/dL 11.1999-18.0000 HCT (test code = HCT) 31.9000 % 34.0000-44.0000 MCV (test code = MCV) 110.6000 fL 80.0000-94.0000 MCH (test code = MCH) 34.6000 pg 27.0000-34.0000 MCHC (test code = MCHC) 31.3000 g/dL 31.5000-36.0000 RDW (test code = RDW) 16.6000 11.0000-18.0000 PLT (test code = PLT) 177.0000 140.0000-440.0000 MPV (test code = MPV) 7.7000 fL 6.8000-10.6000 [id number] 10:04:00 Test Item Value Reference Range Comments WBC (test code = WBC) 3.9000 4.0000-10.0000 Lymphocytes % (test code = Lymphocytes %) 20.8000 % 22.400 0-43.6000 MID% (test code = MID%) 6.0000 % .1999- Neutrophils % (test code = Neutrophils %) 73.2000 % 48.900 0-69.9000 Lymphocytes (test code = Lymphocytes) 0.8000 1.2000-3.2 000 MID (test code = MID) 0.2000 0.1000-1.1000 Neutrophils (test code = Neutrophils) 2.9000 1.5000-6.7 000 RBC (test code = RBC) 2.8200 3.7000-4.9000 HGB (test code = HGB) 9.9000 g/dL 11.2000-18.0000 HCT (test code = HCT) 31.0000 % 34.0000-44.0000 MCV (test code = MCV) 109.9000 fL 80.0000-94.0000 MCH (test code = MCH) 35.2000 pg 27.0000-34.0000 MCHC (test code = MCHC) 32.0000 g/dL 31.5000-36.0000 RDW (test code = RDW) 16.4000 11.0000-18.0000 PLT (test code = PLT) 187.0000 140.0000-440.0000 MPV (test code = MPV) 7.9000 fL 6.8000-10.6000 [id number] 08:40:00 Test Item Value Reference Range Comments WBC (test code = WBC) 2.9000 4.0000-10.0000 Lymphocytes % (test code = Lymphocytes %) 23.4000 % 22.400 0-43.6000 MID% (test code = MID%) 5.2000 % 1.2000-11.2000 Neutrophils % (test code = Neutrophils %) 71.4000 % 48.900 0-69.9000 Lymphocytes (test code = Lymphocytes) 0.6000 1.2000-3.2 000 MID (test code = MID) 0.2000 0.1000-1.1000 Neutrophils (test code = Neutrophils) 2.1000 1.5000-6.7 000 RBC (test code = RBC) 2.9100 3.7000-4.9000 HGB (test code = HGB) 10.3000 g/dL 11.2000-18.0000 HCT (test code = HCT) 31.9000 % 34.0000-44.0000 MCV (test code = MCV) 109.3000 fL 80.0000-94.0000 MCH (test code = MCH) 35.3000 pg 27.0000-34.0000 MCHC (test code = MCHC) 32.2000 g/dL 31.5000-36.0000 RDW (test code = RDW) 16.2000 11.0000-18.0000 PLT (test code = PLT) 165.0000 140.0000-440.0000 MPV (test code = MPV) 8.0000 fL 6.8000-10.6000 [id number] 11:54:00 Test Item Value Reference Range Comments WBC (test code = WBC) 2.5000 4.0000-10.0000 Lymphocytes % (test code = Lymphocytes %) 36.9000 % 22.400 0-43.6000 MID% (test code = MID%) 8.1000 % 1.2000-11.2000 Neutrophils % (test code = Neutrophils %) 55.0000 % 48.900 0-69.9000 Lymphocytes (test code = Lymphocytes) 0.9000 1.2000-3.2 000 MID (test code = MID) 0.2000 0.1000-1.1000 Neutrophils (test code = Neutrophils) 1.4000 1.5000-6.7 000 RBC (test code = RBC) 2.5400 3.7000-4.9000 HGB (test code = HGB) 9.4000 g/dL 11.2000-18.0000 HCT (test code = HCT) 29.2000 % 34.0000-44.0000 MCV (test code = MCV) 114.8000 fL 80.0000-94.0000 MCH (test code = MCH) 37.1000 pg 27.0000-34.0000 MCHC (test code = MCHC) 32.3000 g/dL 31.5000-36.0000 RDW (test code = RDW) 17.7000 11.0000-18.0000 PLT (test code = PLT) 71.0000 140.0000-440.0000 MPV (test code = MPV) 9.4000 fL 6.8000-10.6000 [id number] 10:41:00 Test Item Value Reference Range Comments Creatinine (test code = Creatinine) 1.0000 mg/dL 0.5000-1.200 0 Cr Clearance (Est) (test code = Cr 67.9300 75.0000-115.0 000 Clearance (Est)) Glucose (test code = Glucose) 103.0000 mg/dL 70.0000-118.0000 BUN (test code = BUN) 27.0000 mg/dL 7.0000-22.0000 Sodium (test code = Sodium) 139.0000 mmol/L 128.0000-145.0000 Potassium (test code = Potassium) 4.7000 mmol/L 3.6000-5.1000 Chloride (test code = Chloride) 101.0000 mmol/L 96.0000-108.0000 CO2 (test code = CO2) 29.0000 mmol/L 18.0000-33.0000 Calcium (test code = Calcium) 10.3400 mg/dL 8.0000-10.3000 Alkaline Phosphatase (test code = Alkaline 38.0000 42.00 00-141.0000 Phosphatase) ALT (SGPT) (test code = ALT (SGPT)) 13.0000 10.0000-47.0 000 AST (SGOT) (test code = AST (SGOT)) 21.0000 11.0000-37.0 000 Bilirubin, Total (test code = Bilirubin, 0.4000 mg/dL 0.0000- 1.6000 Total) Albumin (test code = Albumin) 4.2000 g/dL 3.5000-5.5000 Protein, Total (test code = Protein, 6.2000 g/dL 6.4000-8.10 00 Total) eGFR -Macanese (test code = eGFR 65.0000 60.0000- 200.0000 -Macanese) eGFR Jok-Kesyfff-Gxtvykwa (test code = 54.0000 60.0000-2 00.0000 eGFR Grl-Bbtlhoz-Tnulvwdd) [id number] 10:40:00 Test Item Value Reference Range Comments WBC (test code = WBC) 2.1000 4.0000-10.0000 Lymphocytes % (test code = Lymphocytes %) 32.5000 % 22.400 0-43.6000 MID% (test code = MID%) 7.9000 % 1.2000-11.2000 Neutrophils % (test code = Neutrophils %) 59.6000 % 48.900 0-69.9000 Lymphocytes (test code = Lymphocytes) 0.7000 1.2000-3.2 000 MID (test code = MID) 0.2000 0.1000-1.1000 Neutrophils (test code = Neutrophils) 1.2000 1.5000-6.7 000 RBC (test code = RBC) 2.7400 3.7000-4.9000 HGB (test code = HGB) 9.7000 g/dL 11.2000-18.0000 HCT (test code = HCT) 30.0000 % 34.0000-44.0000 MCV (test code = MCV) 109.1000 fL 80.0000-94.0000 MCH (test code = MCH) 35.6000 pg 27.0000-34.0000 MCHC (test code = MCHC) 32.6000 g/dL 31.5000-36.0000 RDW (test code = RDW) 17.3000 11.0000-18.0000 PLT (test code = PLT) 54.0000 140.0000-440.0000 MPV (test code = MPV) 8.6000 fL 6.8000-10.6000 [id number] 11:35:00 Test Item Value Reference Range Comments WBC (test code = WBC) 1.4000 4.0000-10.0000 Lymphocytes % (test code = Lymphocytes %) 46.3000 % 22.400 0-43.6000 MID% (test code = MID%) 7.6000 % 1.1999-11.1999 Neutrophils % (test code = Neutrophils %) 46.1000 % 48.900 0-69.9000 Lymphocytes (test code = Lymphocytes) 0.6000 1.2000-3.2 000 MID (test code = MID) 0.2000 0.1000-1.1000 Neutrophils (test code = Neutrophils) 0.6000 1.5000-6.7 000 RBC (test code = RBC) 2.9300 3.7000-4.9000 HGB (test code = HGB) 9.5000 g/dL 11.2000-18.0000 HCT (test code = HCT) 31.5000 % 34.0000-44.0000 MCV (test code = MCV) 107.5000 fL 80.0000-94.0000 MCH (test code = MCH) 32.4000 pg 27.0000-34.0000 MCHC (test code = MCHC) 30.1000 g/dL 31.5000-36.0000 RDW (test code = RDW) 18.8000 11.0000-18.0000 PLT (test code = PLT) 77.0000 140.0000-440.0000 MPV (test code = MPV) 8.4000 fL 6.8000-10.6000 [id number] 10:51:00 Test Item Value Reference Range Comments WBC (test code = WBC) 2.1000 4.0000-10.0000 Lymphocytes % (test code = Lymphocytes %) 26.1000 % 22.400 0-43.6000 MID% (test code = MID%) 5.7000 % .1999-11.1999 Neutrophils % (test code = Neutrophils %) 68.2000 % 48.900 0-69.9000 Lymphocytes (test code = Lymphocytes) 0.5000 1.2000-3.2 000 MID (test code = MID) 0.2000 0.1000-1.1000 Neutrophils (test code = Neutrophils) 1.4000 1.5000-6.7 000 RBC (test code = RBC) 2.7000 3.7000-4.9000 HGB (test code = HGB) 9.8000 g/dL 11.2000-18.0000 HCT (test code = HCT) 29.0000 % 34.0000-44.0000 MCV (test code = MCV) 107.6000 fL 80.0000-94.0000 MCH (test code = MCH) 36.3000 pg 27.0000-34.0000 MCHC (test code = MCHC) 33.7000 g/dL 31.5000-36.0000 RDW (test code = RDW) 15.8000 11.0000-18.0000 PLT (test code = PLT) 37.0000 140.0000-440.0000 MPV (test code = MPV) 8.8000 fL 6.8000-10.6000 [id number] 12:03:00 Test Item Value Reference Range Comments Creatinine (test code = Creatinine) 0.9800 mg/dL 0.5700-1.000 0 Cr Clearance (Est) (test code = Cr 69.1000 75.0000-115.0 000 Clearance (Est)) Glucose (test code = Glucose) 100.0000 mg/dL 65.0000-99.0000 BUN (test code = BUN) 27.0000 mg/dL 8.0000-27.0000 eGFR Kje-Untfsod-Mgyvogbu (test code = 56.0000 eGFR Fci-Mwqfjus-Rvdkmprk) eGFR -Macanese (test code = eGFR 65.0000 -Macanese) BUN/Creat Ratio (test code = BUN/Creat 28.0000 12.0000-2 8.0000 Ratio) Sodium (test code = Sodium) 140.0000 mmol/L 134.0000-144.0000 Potassium (test code = Potassium) 4.6000 mmol/L 3.5000-5.2000 Chloride (test code = Chloride) 102.0000 mmol/L 96.0000-106.0000 CO2 (test code = CO2) 22.0000 mmol/L 20.0000-29.0000 Calcium (test code = Calcium) 9.4000 mg/dL 8.7000-10.3000 Protein, Total (test code = Protein, 6.3000 g/dL 6.0000-8.50 00 Total) Albumin (test code = Albumin) 3.8000 g/dL 3.5000-4.8000 Globulin (test code = Globulin) 2.5000 g/dL 1.5000-4.5000 A/G Ratio (test code = A/G Ratio) 1.5000 1.2000-2.2000 Bilirubin, Total (test code = Bilirubin, 0.3000 mg/dL 0.0000- 1.2000 Total) Alkaline Phosphatase (test code = Alkaline 37.0000 39.00 00-117.0000 Phosphatase) AST (SGOT) (test code = AST (SGOT)) 20.0000 0.0000-40.00 00 ALT (SGPT) (test code = ALT (SGPT)) 14.0000 0.0000-32.00 00 Iron, Total (test code = Iron, Total) 120.0000 27.0000-13 9.0000 TIBC (test code = TIBC) 398.0000 250.0000-450.0000 UIBC (test code = UIBC) 278.0000 118.0000-369.0000 % Iron Saturation (test code = % Iron 30.0000 % 15.0000-55 .0000 Saturation) Ferritin (test code = Ferritin) 339.0000 ng/mL 15.0000-150.0000 [id number] 10:04:00 Test Item Value Reference Range Comments Creatinine (test code = Creatinine) 1.0000 mg/dL 0.5000-1.200 0 Cr Clearance (Est) (test code = Cr 67.7200 75.0000-115.0 000 Clearance (Est)) Glucose (test code = Glucose) 102.0000 mg/dL 70.0000-118.0000 BUN (test code = BUN) 28.0000 mg/dL 7.0000-22.0000 Sodium (test code = Sodium) 139.0000 mmol/L 128.0000-145.0000 Potassium (test code = Potassium) 4.4000 mmol/L 3.6000-5.1000 Chloride (test code = Chloride) 104.0000 mmol/L 96.0000-108.0000 CO2 (test code = CO2) 26.0000 mmol/L 18.0000-33.0000 Calcium (test code = Calcium) 8.9100 mg/dL 8.0000-10.3000 Alkaline Phosphatase (test code = Alkaline 34.0000 42.00 00-141.0000 Phosphatase) ALT (SGPT) (test code = ALT (SGPT)) 13.0000 10.0000-47.0 000 AST (SGOT) (test code = AST (SGOT)) 17.0000 11.0000-37.0 000 Bilirubin, Total (test code = Bilirubin, 0.4000 mg/dL 0.0000- 1.6000 Total) Albumin (test code = Albumin) 3.9000 g/dL 3.5000-5.5000 Protein, Total (test code = Protein, 5.8000 g/dL 6.4000-8.10 00 Total) eGFR -Macanese (test code = eGFR 65.0000 60.0000- 200.0000 -Macanese) eGFR Ddl-Ybmicjx-Cojbenvf (test code = 54.0000 60.0000-2 00.0000 eGFR Bzs-Fzimgra-Wvxcanqq) U [id number] 08:50:00 Test Item Value Reference Range Comments U Color (test code = U Color) Yellow U Urobilinogen (test code = U Urobilinogen) 0.2 U Specific [place] (test code = U Specific [place]) 1.0150 U Appearance (test code = U Appearance) Clear U Glucose (test code = U Glucose) Negative U Bilirubin (test code = U Bilirubin) Negative U Ketones (test code = U Ketones) Negative U Blood (test code = U Blood) Negative U pH (test code = U pH) 6.0000 5.0000-8.0000 U Protein (test code = U Protein) Negative U Nitrite (test code = U Nitrite) Negative U Leuk Esterase (test code = U Leuk Esterase) Negative [id number] 08:42:00 Test Item Value Reference Range Comments WBC (test code = WBC) 2.5000 4.0000-10.0000 Lymphocytes % (test code = Lymphocytes %) 25.0000 % 22.400 0-43.6000 MID% (test code = MID%) 6.0000 % 1.2000-11.2000 Neutrophils % (test code = Neutrophils %) 69.0000 % 48.900 0-69.9000 Lymphocytes (test code = Lymphocytes) 0.6000 1.2000-3.2 000 MID (test code = MID) 0.2000 0.1000-1.1000 Neutrophils (test code = Neutrophils) 1.7000 1.5000-6.7 000 RBC (test code = RBC) 2.9500 3.7000-4.9000 HGB (test code = HGB) 10.4000 g/dL 11.2000-18.0000 HCT (test code = HCT) 32.5000 % 34.0000-44.0000 MCV (test code = MCV) 110.2000 fL 80.0000-94.0000 MCH (test code = MCH) 35.2000 pg 27.0000-34.0000 MCHC (test code = MCHC) 31.9000 g/dL 31.5000-36.0000 RDW (test code = RDW) 18.1000 11.0000-18.0000 PLT (test code = PLT) 100.0000 140.0000-440.0000 MPV (test code = MPV) 8.7000 fL 6.8000-10.6000 [id number] 11:16:00 Test Item Value Reference Range Comments WBC (test code = WBC) 3.9000 4.0000-10.0000 Lymphocytes % (test code = Lymphocytes %) 25.2000 % 22.400 0-43.6000 MID% (test code = MID%) 6.6000 % 1.2000-11.2000 Neutrophils % (test code = Neutrophils %) 68.2000 % 48.900 0-69.9000 Lymphocytes (test code = Lymphocytes) 1.0000 1.2000-3.2 000 MID (test code = MID) 0.2000 0.1000-1.1000 Neutrophils (test code = Neutrophils) 2.7000 1.5000-6.7 000 RBC (test code = RBC) 2.8400 3.7000-4.9000 HGB (test code = HGB) 10.0000 g/dL 11.2000-18.0000 HCT (test code = HCT) 31.2000 % 34.0000-44.0000 MCV (test code = MCV) 109.5000 fL 80.0000-94.0000 MCH (test code = MCH) 35.1000 pg 27.0000-34.0000 MCHC (test code = MCHC) 32.1000 g/dL 31.5000-36.0000 RDW (test code = RDW) 18.7000 11.0000-18.0000 PLT (test code = PLT) 133.0000 140.0000-440.0000 MPV (test code = MPV) 7.8000 fL 6.8000-10.6000 [id number] 11:36:00 Test Item Value Reference Range Comments WBC (test code = WBC) 3.1000 4.0000-10.0000 Lymphocytes % (test code = Lymphocytes %) 30.9000 % 22.400 0-43.6000 MID% (test code = MID%) 7.3000 % 1.2000-11.2000 Neutrophils % (test code = Neutrophils %) 61.8000 % 48.900 0-69.9000 Lymphocytes (test code = Lymphocytes) 0.9000 1.2000-3.2 000 MID (test code = MID) 0.3000 0.1000-1.1000 Neutrophils (test code = Neutrophils) 1.9000 1.5000-6.7 000 RBC (test code = RBC) 2.5700 3.7000-4.9000 HGB (test code = HGB) 8.9000 g/dL 11.2000-18.0000 HCT (test code = HCT) 27.2000 % 34.0000-44.0000 MCV (test code = MCV) 105.9000 fL 80.0000-94.0000 MCH (test code = MCH) 34.8000 pg 27.0000-34.0000 MCHC (test code = MCHC) 32.8000 g/dL 31.5000-36.0000 RDW (test code = RDW) 17.6000 11.0000-18.0000 PLT (test code = PLT) 115.0000 140.0000-440.0000 MPV (test code = MPV) 8.6000 fL 6.8000-10.6000 [id number] 08:29:00 Test Item Value Reference Range Comments WBC (test code = WBC) 3.6000 4.0000-10.0000 Lymphocytes % (test code = Lymphocytes %) 15.3000 % 22.400 0-43.6000 MID% (test code = MID%) 17.8000 % 1.2000-11.1999 Neutrophils % (test code = Neutrophils %) 66.9000 % 48.900 0-69.9000 Lymphocytes (test code = Lymphocytes) 0.5000 1.2000-3.2 000 MID (test code = MID) 0.7000 0.1000-1.1000 Neutrophils (test code = Neutrophils) 2.4000 1.5000-6.7 000 RBC (test code = RBC) 3.0600 3.7000-4.9000 HGB (test code = HGB) 10.9000 g/dL 11.2000-18.0000 HCT (test code = HCT) 32.3000 % 34.0000-44.0000 MCV (test code = MCV) 105.5000 fL 80.0000-94.0000 MCH (test code = MCH) 35.8000 pg 27.0000-34.0000 MCHC (test code = MCHC) 33.9000 g/dL 31.5000-36.0000 RDW (test code = RDW) 18.7000 11.0000-18.0000 PLT (test code = PLT) 241.0000 140.0000-440.0000 MPV (test code = MPV) 7.6000 fL 6.8000-10.6000 [id number] 08:29:00 Test Item Value Reference Range Comments Creatinine (test code = Creatinine) 1.2000 mg/dL 0.5000-1.200 0 Cr Clearance (Est) (test code = Cr 56.0900 75.0000-115.0 000 Clearance (Est)) Glucose (test code = Glucose) 128.0000 mg/dL 70.0000-118.0000 BUN (test code = BUN) 27.0000 mg/dL 7.0000-22.0000 Sodium (test code = Sodium) 142.0000 mmol/L 128.0000-145.0000 Potassium (test code = Potassium) 4.8000 mmol/L 3.6000-5.1000 Chloride (test code = Chloride) 103.0000 mmol/L 96.0000-108.0000 CO2 (test code = CO2) 27.0000 mmol/L 18.0000-33.0000 Calcium (test code = Calcium) 9.6600 mg/dL 8.0000-10.3000 Alkaline Phosphatase (test code = Alkaline 42.0000 42.00 00-141.0000 Phosphatase) ALT (SGPT) (test code = ALT (SGPT)) 13.0000 10.0000-47.0 000 AST (SGOT) (test code = AST (SGOT)) 20.0000 11.0000-37.0 000 Bilirubin, Total (test code = Bilirubin, 0.4000 mg/dL 0.0000- 1.6000 Total) Albumin (test code = Albumin) 3.9000 g/dL 3.5000-5.5000 Protein, Total (test code = Protein, 6.4000 g/dL 6.4000-8.10 00 Total) eGFR -Macanese (test code = eGFR 53.0000 60.0000- 200.0000 -Macanese) eGFR Mvj-Emgicxk-Bjffiywc (test code = 44.0000 60.0000-2 00.0000 eGFR Mdf-Xtcupcc-Svnqsswm) [id number] 15:42:00 Test Item Value Reference Range Comments WBC (test code = WBC) 2.5000 4.0000-10.0000 Lymphocytes % (test code = Lymphocytes %) 29.9000 % 22.400 0-43.6000 MID% (test code = MID%) 6.7000 % 1.2000-11.2000 Neutrophils % (test code = Neutrophils %) 63.4000 % 48.900 0-69.9000 Lymphocytes (test code = Lymphocytes) 0.7000 1.2000-3.2 000 MID (test code = MID) 0.2000 0.1000-1.1000 Neutrophils (test code = Neutrophils) 1.6000 1.5000-6.7 000 RBC (test code = RBC) 3.0500 3.7000-4.9000 HGB (test code = HGB) 10.7000 g/dL 11.2000-18.0000 HCT (test code = HCT) 32.4000 % 34.0000-44.0000 MCV (test code = MCV) 106.3000 fL 80.0000-94.0000 MCH (test code = MCH) 35.2000 pg 27.0000-34.0000 MCHC (test code = MCHC) 33.1000 g/dL 31.5000-36.0000 RDW (test code = RDW) 20.1000 11.0000-18.0000 PLT (test code = PLT) 190.0000 140.0000-440.0000 MPV (test code = MPV) 7.7000 fL 6.8000-10.6000 [id number] 15:42:00 Test Item Value Reference Range Comments Creatinine (test code = Creatinine) 1.5000 mg/dL 0.5000-1.200 0 Cr Clearance (Est) (test code = Cr 44.7400 75.0000-115.0 000 Clearance (Est)) Glucose (test code = Glucose) 103.0000 mg/dL 70.0000-118.0000 BUN (test code = BUN) 29.0000 mg/dL 7.0000-22.0000 Sodium (test code = Sodium) 140.0000 mmol/L 128.0000-145.0000 Potassium (test code = Potassium) 6.2000 mmol/L 3.6000-5.1000 Chloride (test code = Chloride) 101.0000 mmol/L 96.0000-108.0000 CO2 (test code = CO2) 30.0000 mmol/L 18.0000-33.0000 Calcium (test code = Calcium) 10.1300 mg/dL 8.0000-10.3000 Alkaline Phosphatase (test code = Alkaline 44.0000 42.00 00-141.0000 Phosphatase) ALT (SGPT) (test code = ALT (SGPT)) 15.0000 10.0000-47.0 000 AST (SGOT) (test code = AST (SGOT)) 21.0000 11.0000-37.0 000 Bilirubin, Total (test code = Bilirubin, 0.4000 mg/dL 0.0000- 1.6000 Total) Albumin (test code = Albumin) 4.0000 g/dL 3.5000-5.5000 Protein, Total (test code = Protein, 6.6000 g/dL 6.4000-8.10 00 Total) eGFR -Macanese (test code = eGFR 41.0000 60.0000- 200.0000 -Macanese) eGFR Pfk-Bbxnfti-Vzdpbznz (test code = 34.0000 60.0000-2 00.0000 eGFR Fsm-Hwycazr-Aocxryzd) [id number] 11:11:00 Test Item Value Reference Range Comments WBC (test code = WBC) 2.4000 4.0000-10.0000 Lymphocytes % (test code = Lymphocytes %) 31.5000 % 22.400 0-43.6000 MID% (test code = MID%) 9.8000 % 1.2000-11.2000 Neutrophils % (test code = Neutrophils %) 58.7000 % 48.900 0-69.9000 Lymphocytes (test code = Lymphocytes) 0.7000 1.2000-3.2 000 MID (test code = MID) 0.3000 0.1000-1.1000 Neutrophils (test code = Neutrophils) 1.4000 1.5000-6.7 000 RBC (test code = RBC) 3.0600 3.7000-4.9000 HGB (test code = HGB) 10.3000 g/dL 11.2000-18.0000 HCT (test code = HCT) 32.5000 % 34.0000-44.0000 MCV (test code = MCV) 106.2000 fL 80.0000-94.0000 MCH (test code = MCH) 33.7000 pg 27.0000-34.0000 MCHC (test code = MCHC) 31.7000 g/dL 31.5000-36.0000 RDW (test code = RDW) 21.3000 11.0000-18.0000 PLT (test code = PLT) 132.0000 140.0000-440.0000 MPV (test code = MPV) 8.0000 fL 6.8000-10.6000 [id number] 09:07:00 Test Item Value Reference Range Comments WBC (test code = WBC) 1.4000 4.0000-10.0000 Lymphocytes % (test code = Lymphocytes %) 31.8000 % 22.400 0-43.6000 MID% (test code = MID%) 8.4000 % 1.2000-11.2000 Neutrophils % (test code = Neutrophils %) 59.8000 % 48.900 0-69.9000 Lymphocytes (test code = Lymphocytes) 0.4000 1.2000-3.2 000 MID (test code = MID) 0.2000 0.1000-1.1000 Neutrophils (test code = Neutrophils) 0.8000 1.5000-6.7 000 RBC (test code = RBC) 2.8100 3.7000-4.9000 HGB (test code = HGB) 9.5000 g/dL 11.2000-18.0000 HCT (test code = HCT) 29.4000 % 34.0000-44.0000 MCV (test code = MCV) 104.6000 fL 80.0000-94.0000 MCH (test code = MCH) 34.0000 pg 27.0000-34.0000 MCHC (test code = MCHC) 32.5000 g/dL 31.5000-36.0000 RDW (test code = RDW) 21.6000 11.0000-18.0000 PLT (test code = PLT) 102.0000 140.0000-440.0000 MPV (test code = MPV) 7.6000 fL 6.8000-10.6000 [id number] 09:07:00 Test Item Value Reference Range Comments Creatinine (test code = Creatinine) 1.0000 mg/dL 0.5000-1.200 0 Cr Clearance (Est) (test code = Cr 67.1000 75.0000-115.0 000 Clearance (Est)) Glucose (test code = Glucose) 128.0000 mg/dL 70.0000-118.0000 BUN (test code = BUN) 20.0000 mg/dL 7.0000-22.0000 Sodium (test code = Sodium) 142.0000 mmol/L 128.0000-145.0000 Potassium (test code = Potassium) 4.5000 mmol/L 3.6000-5.1000 Chloride (test code = Chloride) 104.0000 mmol/L 96.0000-108.0000 CO2 (test code = CO2) 26.0000 mmol/L 18.0000-33.0000 Calcium (test code = Calcium) 9.8700 mg/dL 8.0000-10.3000 Alkaline Phosphatase (test code = Alkaline 43.0000 42.00 00-141.0000 Phosphatase) ALT (SGPT) (test code = ALT (SGPT)) 17.0000 10.0000-47.0 000 AST (SGOT) (test code = AST (SGOT)) 22.0000 11.0000-37.0 000 Bilirubin, Total (test code = Bilirubin, 0.4000 mg/dL 0.0000- 1.6000 Total) Albumin (test code = Albumin) 3.9000 g/dL 3.5000-5.5000 Protein, Total (test code = Protein, 6.2000 g/dL 6.4000-8.10 00 Total) eGFR -Macanese (test code = eGFR 65.0000 60.0000- 200.0000 -Macanese) eGFR Cqg-Kcfdjxz-Ckxfyrdt (test code = 54.0000 60.0000-2 00.0000 eGFR Isj-Xhnyjrr-Ysmpqxfu) [id number] 15:11:00 Test Item Value Reference Range Comments WBC (test code = WBC) 1.5000 4.0000-10.0000 Lymphocytes % (test code = Lymphocytes %) 31.9000 % 22.400 0-43.6000 MID% (test code = MID%) 6.5000 % 1.2000-11.2000 Neutrophils % (test code = Neutrophils %) 61.6000 % 48.900 0-69.9000 Lymphocytes (test code = Lymphocytes) 0.4000 1.2000-3.2 000 MID (test code = MID) 0.2000 0.1000-1.1000 Neutrophils (test code = Neutrophils) 0.9000 1.5000-6.7 000 RBC (test code = RBC) 2.7900 3.7000-4.9000 HGB (test code = HGB) 10.2000 g/dL 11.2000-18.0000 HCT (test code = HCT) 28.4000 % 34.0000-44.0000 MCV (test code = MCV) 101.4000 fL 80.0000-94.0000 MCH (test code = MCH) 36.7000 pg 27.0000-34.0000 MCHC (test code = MCHC) 36.2000 g/dL 31.5000-36.0000 RDW (test code = RDW) 20.8000 11.0000-18.0000 PLT (test code = PLT) 80.0000 140.0000-440.0000 MPV (test code = MPV) 7.7000 fL 6.8000-10.6000 [id number] 12:58:00 Test Item Value Reference Range Comments Creatinine (test code = Creatinine) 1.1600 mg/dL 0.5700-1.000 0 Cr Clearance (Est) (test code = Cr 56.9600 75.0000-115.0 000 Clearance (Est)) Glucose (test code = Glucose) 116.0000 mg/dL 65.0000-99.0000 BUN (test code = BUN) 24.0000 mg/dL 8.0000-27.0000 eGFR Dux-Adskxyo-Fmrbdlas (test code = 46.0000 eGFR Xxx-Xmixpsd-Elhkphsb) eGFR -Macanese (test code = eGFR 53.0000 -Macanese) BUN/Creat Ratio (test code = BUN/Creat 21.0000 12.0000-2 8.0000 Ratio) Sodium (test code = Sodium) 140.0000 mmol/L 134.0000-144.0000 Potassium (test code = Potassium) 4.4000 mmol/L 3.5000-5.2000 Chloride (test code = Chloride) 101.0000 mmol/L 96.0000-106.0000 CO2 (test code = CO2) 24.0000 mmol/L 20.0000-29.0000 Calcium (test code = Calcium) 9.5000 mg/dL 8.7000-10.3000 Protein, Total (test code = Protein, 6.3000 g/dL 6.0000-8.50 00 Total) Albumin (test code = Albumin) 3.9000 g/dL 3.5000-4.8000 Globulin (test code = Globulin) 2.4000 g/dL 1.5000-4.5000 A/G Ratio (test code = A/G Ratio) 1.6000 1.2000-2.2000 Bilirubin, Total (test code = Bilirubin, 0.3000 mg/dL 0.0000- 1.2000 Total) Alkaline Phosphatase (test code = Alkaline 40.0000 39.00 00-117.0000 Phosphatase) AST (SGOT) (test code = AST (SGOT)) 29.0000 0.0000-40.00 00 ALT (SGPT) (test code = ALT (SGPT)) 19.0000 0.0000-32.00 00 Iron, Total (test code = Iron, Total) 120.0000 27.0000-13 9.0000 TIBC (test code = TIBC) 385.0000 250.0000-450.0000 UIBC (test code = UIBC) 265.0000 118.0000-369.0000 % Iron Saturation (test code = % Iron 31.0000 % 15.0000-55 .0000 Saturation) Ferritin (test code = Ferritin) 564.0000 ng/mL 15.0000-150.0000 [id number] 09:09:00 Test Item Value Reference Range Comments WBC (test code = WBC) 1.0000 4.0000-10.0000 Lymphocytes % (test code = Lymphocytes %) 38.4000 % 22.400 0-43.6000 MID% (test code = MID%) 8.2000 % 1.2000-11.2000 Neutrophils % (test code = Neutrophils %) 53.4000 % 48.900 0-69.9000 Lymphocytes (test code = Lymphocytes) 0.4000 1.2000-3.2 000 MID (test code = MID) 0.1000 0.1000-1.1000 Neutrophils (test code = Neutrophils) 0.5000 1.5000-6.7 000 RBC (test code = RBC) 3.0300 3.7000-4.9000 HGB (test code = HGB) 9.5000 g/dL 11.2000-18.0000 HCT (test code = HCT) 31.3000 % 34.0000-44.0000 MCV (test code = MCV) 103.4000 fL 80.0000-94.0000 MCH (test code = MCH) 31.5000 pg 27.0000-34.0000 MCHC (test code = MCHC) 30.4000 g/dL 31.5000-36.0000 RDW (test code = RDW) 20.7000 11.0000-18.0000 PLT (test code = PLT) 47.0000 140.0000-440.0000 MPV (test code = MPV) 8.0000 fL 6.8000-10.6000 [id number] 09:09:00 Test Item Value Reference Range Comments Creatinine (test code = Creatinine) 1.0000 mg/dL 0.5000-1.200 0 Cr Clearance (Est) (test code = Cr 66.0800 75.0000-115.0 000 Clearance (Est)) Glucose (test code = Glucose) 122.0000 mg/dL 70.0000-118.0000 BUN (test code = BUN) 25.0000 mg/dL 7.0000-22.0000 Sodium (test code = Sodium) 139.0000 mmol/L 128.0000-145.0000 Potassium (test code = Potassium) 4.2000 mmol/L 3.6000-5.1000 Chloride (test code = Chloride) 101.0000 mmol/L 96.0000-108.0000 CO2 (test code = CO2) 28.0000 mmol/L 18.0000-33.0000 Calcium (test code = Calcium) 9.2500 mg/dL 8.0000-10.3000 Alkaline Phosphatase (test code = Alkaline 40.0000 42.00 00-141.0000 Phosphatase) ALT (SGPT) (test code = ALT (SGPT)) 15.0000 10.0000-47.0 000 AST (SGOT) (test code = AST (SGOT)) 23.0000 11.0000-37.0 000 Bilirubin, Total (test code = Bilirubin, 0.5000 mg/dL 0.0000- 1.6000 Total) Albumin (test code = Albumin) 3.8000 g/dL 3.5000-5.5000 Protein, Total (test code = Protein, 5.9000 g/dL 6.4000-8.10 00 Total) eGFR -Macanese (test code = eGFR 65.0000 60.0000- 200.0000 -Macanese) eGFR Yzj-Ghrkmff-Kuglcjdo (test code = 54.0000 60.0000-2 00.0000 eGFR Qqd-Ebsdikw-Fseaduso) [id number] 08:46:00 Test Item Value Reference Range Comments WBC (test code = WBC) 1.0000 4.0000-10.0000 Lymphocytes % (test code = Lymphocytes %) 36.5000 % 22.400 0-43.6000 MID% (test code = MID%) 12.2000 % 1.2000-11.2000 Neutrophils % (test code = Neutrophils %) 51.3000 % 48.900 0-69.9000 Lymphocytes (test code = Lymphocytes) 0.3000 1.2000-3.2 000 MID (test code = MID) 0.2000 0.1000-1.1000 Neutrophils (test code = Neutrophils) 0.5000 1.5000-6.7 000 RBC (test code = RBC) 2.9900 3.7000-4.9000 HGB (test code = HGB) 9.8000 g/dL 11.2000-18.0000 HCT (test code = HCT) 30.8000 % 34.0000-44.0000 MCV (test code = MCV) 103.0000 fL 80.0000-94.0000 MCH (test code = MCH) 32.9000 pg 27.0000-34.0000 MCHC (test code = MCHC) 31.9000 g/dL 31.5000-36.0000 RDW (test code = RDW) 21.5000 11.0000-18.0000 PLT (test code = PLT) 43.0000 140.0000-440.0000 MPV (test code = MPV) 8.5000 fL 6.8000-10.6000 [id number] 13:36:00 Test Item Value Reference Range Comments WBC (test code = WBC) 1.5000 4.0000-10.0000 Lymphocytes % (test code = Lymphocytes %) 37.8000 % 22.400 0-43.6000 MID% (test code = MID%) 8.7000 % 1.2000-11.2000 Neutrophils % (test code = Neutrophils %) 53.5000 % 48.900 0-69.9000 Lymphocytes (test code = Lymphocytes) 0.6000 1.2000-3.2 000 MID (test code = MID) 0.1000 0.1000-1.1000 Neutrophils (test code = Neutrophils) 0.8000 1.5000-6.7 000 RBC (test code = RBC) 3.2700 3.7000-4.9000 HGB (test code = HGB) 10.8000 g/dL 11.2000-18.0000 HCT (test code = HCT) 33.9000 % 34.0000-44.0000 MCV (test code = MCV) 103.3000 fL 80.0000-94.0000 MCH (test code = MCH) 33.0000 pg 27.0000-34.0000 MCHC (test code = MCHC) 31.9000 g/dL 31.5000-36.0000 RDW (test code = RDW) 21.1000 11.0000-18.0000 PLT (test code = PLT) 37.0000 140.0000-440.0000 MPV (test code = MPV) [id number] 08:34:00 Test Item Value Reference Range Comments WBC (test code = WBC) 0.9000 4.0000-10.0000 Lymphocytes % (test code = Lymphocytes %) 28.0000 % 22.400 0-43.6000 MID% (test code = MID%) 8.8000 % 1.2000-11.2000 Neutrophils % (test code = Neutrophils %) 63.2000 % 48.900 0-69.9000 Lymphocytes (test code = Lymphocytes) 0.2000 1.2000-3.2 000 MID (test code = MID) 0.1000 0.1000-1.1000 Neutrophils (test code = Neutrophils) 0.6000 1.5000-6.7 000 RBC (test code = RBC) 2.8100 3.7000-4.9000 HGB (test code = HGB) 10.2000 g/dL 11.2000-18.0000 HCT (test code = HCT) 28.9000 % 34.0000-44.0000 MCV (test code = MCV) 103.0000 fL 80.0000-94.0000 MCH (test code = MCH) 36.5000 pg 27.0000-34.0000 MCHC (test code = MCHC) 35.4000 g/dL 31.5000-36.0000 RDW (test code = RDW) 22.1000 11.0000-18.0000 PLT (test code = PLT) 25.0000 140.0000-440.0000 MPV (test code = MPV) [id number] 08:34:00 Test Item Value Reference Range Comments Creatinine (test code = Creatinine) 1.1000 mg/dL 0.5000-1.200 0 Cr Clearance (Est) (test code = Cr 59.8200 75.0000-115.0 000 Clearance (Est)) Glucose (test code = Glucose) 135.0000 mg/dL 70.0000-118.0000 BUN (test code = BUN) 22.0000 mg/dL 7.0000-22.0000 Sodium (test code = Sodium) 142.0000 mmol/L 128.0000-145.0000 Potassium (test code = Potassium) 4.3000 mmol/L 3.6000-5.1000 Chloride (test code = Chloride) 102.0000 mmol/L 96.0000-108.0000 CO2 (test code = CO2) 28.0000 mmol/L 18.0000-33.0000 Calcium (test code = Calcium) 9.6400 mg/dL 8.0000-10.3000 Alkaline Phosphatase (test code = Alkaline 40.0000 42.00 00-141.0000 Phosphatase) ALT (SGPT) (test code = ALT (SGPT)) 13.0000 10.0000-47.0 000 AST (SGOT) (test code = AST (SGOT)) 24.0000 11.0000-37.0 000 Bilirubin, Total (test code = Bilirubin, 0.7000 mg/dL 0.0000- 1.6000 Total) Albumin (test code = Albumin) 4.0000 g/dL 3.5000-5.5000 Protein, Total (test code = Protein, 6.1000 g/dL 6.4000-8.10 00 Total) eGFR -Macanese (test code = eGFR 58.0000 60.0000- 200.0000 -Macanese) eGFR Xvh-Arlesbh-Zuxvcwsn (test code = 48.0000 60.0000-2 00.0000 eGFR Wpk-Nkfdynb-Tqaadhis) [id number] 08:44:00 Test Item Value Reference Range Comments WBC (test code = WBC) 1.3000 4.0000-10.0000 Lymphocytes % (test code = Lymphocytes %) 20.2000 % 22.400 0-43.6000 MID% (test code = MID%) 6.8000 % 1.2000-11.2000 Neutrophils % (test code = Neutrophils %) 73.0000 % 48.900 0-69.9000 Lymphocytes (test code = Lymphocytes) 0.2000 1.2000-3.2 000 MID (test code = MID) 0.1000 0.1000-1.1000 Neutrophils (test code = Neutrophils) 1.0000 1.5000-6.7 000 RBC (test code = RBC) 3.2000 3.7000-4.9000 HGB (test code = HGB) 10.6000 g/dL 11.2000-18.0000 HCT (test code = HCT) 32.1000 % 34.0000-44.0000 MCV (test code = MCV) 100.5000 fL 80.0000-94.0000 MCH (test code = MCH) 33.3000 pg 27.0000-34.0000 MCHC (test code = MCHC) 33.1000 g/dL 31.5000-36.0000 RDW (test code = RDW) 22.8000 11.0000-18.0000 PLT (test code = PLT) 26.0000 140.0000-440.0000 MPV (test code = MPV) [id number] 10:59:00 Test Item Value Reference Range Comments WBC (test code = WBC) 1.6000 4.0000-10.0000 Lymphocytes % (test code = Lymphocytes %) 28.9000 % 22.400 0-43.6000 MID% (test code = MID%) 7.8000 % 1.1999-11.1999 Neutrophils % (test code = Neutrophils %) 63.3000 % 48.900 0-69.9000 Lymphocytes (test code = Lymphocytes) 0.4000 1.2000-3.2 000 MID (test code = MID) 0.2000 0.1000-1.1000 Neutrophils (test code = Neutrophils) 1.0000 1.5000-6.7 000 RBC (test code = RBC) 2.1500 3.7000-4.9000 HGB (test code = HGB) 7.8000 g/dL 11.2000-18.0000 HCT (test code = HCT) 23.2000 % 34.0000-44.0000 MCV (test code = MCV) 108.1000 fL 80.0000-94.0000 MCH (test code = MCH) 36.4000 pg 27.0000-34.0000 MCHC (test code = MCHC) 33.7000 g/dL 31.5000-36.0000 RDW (test code = RDW) 20.4000 11.0000-18.0000 PLT (test code = PLT) 26.0000 140.0000-440.0000 MPV (test code = MPV) [id number] 08:36:00 Test Item Value Reference Range Comments WBC (test code = WBC) 1.3000 4.0000-10.0000 Lymphocytes % (test code = Lymphocytes %) 17.4000 % 22.400 0-43.6000 MID% (test code = MID%) 5.7000 % 1.1999-11.1999 Neutrophils % (test code = Neutrophils %) 76.9000 % 48.900 0-69.9000 Lymphocytes (test code = Lymphocytes) 0.2000 1.2000-3.2 000 MID (test code = MID) 0.1000 0.1000-1.1000 Neutrophils (test code = Neutrophils) 1.0000 1.5000-6.7 000 RBC (test code = RBC) 2.1500 3.7000-4.9000 HGB (test code = HGB) 7.6000 g/dL 11.2000-18.0000 HCT (test code = HCT) 23.2000 % 34.0000-44.0000 MCV (test code = MCV) 107.4000 fL 80.0000-94.0000 MCH (test code = MCH) 35.3000 pg 27.0000-34.0000 MCHC (test code = MCHC) 32.8000 g/dL 31.5000-36.0000 RDW (test code = RDW) 20.5000 11.0000-18.0000 PLT (test code = PLT) 32.0000 140.0000-440.0000 MPV (test code = MPV) [id number] 08:36:00 Test Item Value Reference Range Comments Creatinine (test code = Creatinine) 0.9000 mg/dL 0.5000-1.200 0 Cr Clearance (Est) (test code = Cr 74.4100 75.0000-115.0 000 Clearance (Est)) Glucose (test code = Glucose) 125.0000 mg/dL 70.0000-118.0000 BUN (test code = BUN) 19.0000 mg/dL 7.0000-22.0000 Sodium (test code = Sodium) 142.0000 mmol/L 128.0000-145.0000 Potassium (test code = Potassium) 4.3000 mmol/L 3.6000-5.1000 Chloride (test code = Chloride) 103.0000 mmol/L 96.0000-108.0000 CO2 (test code = CO2) 25.0000 mmol/L 18.0000-33.0000 Calcium (test code = Calcium) 9.2400 mg/dL 8.0000-10.3000 Alkaline Phosphatase (test code = Alkaline 36.0000 42.00 00-141.0000 Phosphatase) ALT (SGPT) (test code = ALT (SGPT)) 13.0000 10.0000-47.0 000 AST (SGOT) (test code = AST (SGOT)) 20.0000 11.0000-37.0 000 Bilirubin, Total (test code = Bilirubin, 0.5000 mg/dL 0.0000- 1.6000 Total) Albumin (test code = Albumin) 3.8000 g/dL 3.5000-5.5000 Protein, Total (test code = Protein, 5.9000 g/dL 6.4000-8.10 00 Total) eGFR -Macanese (test code = eGFR 74.0000 60.0000- 200.0000 -Macanese) eGFR Hog-Rvoldgp-Camjgdla (test code = 61.0000 60.0000-2 00.0000 eGFR Euu-Znmuwsb-Qgghcctg) [id number] 09:23:00 Test Item Value Reference Range Comments WBC (test code = WBC) 2.6000 4.0000-10.0000 Lymphocytes % (test code = Lymphocytes %) 15.0000 % 22.400 0-43.6000 MID% (test code = MID%) 4.3000 % 1.2000-11.2000 Neutrophils % (test code = Neutrophils %) 80.7000 % 48.900 0-69.9000 Lymphocytes (test code = Lymphocytes) 0.3000 1.2000-3.2 000 MID (test code = MID) 0.2000 0.1000-1.1000 Neutrophils (test code = Neutrophils) 2.1000 1.5000-6.7 000 RBC (test code = RBC) 2.3300 3.7000-4.9000 HGB (test code = HGB) 7.8000 g/dL 11.2000-18.0000 HCT (test code = HCT) 24.6000 % 34.0000-44.0000 MCV (test code = MCV) 105.3000 fL 80.0000-94.0000 MCH (test code = MCH) 33.5000 pg 27.0000-34.0000 MCHC (test code = MCHC) 31.8000 g/dL 31.5000-36.0000 RDW (test code = RDW) 20.5000 11.0000-18.0000 PLT (test code = PLT) 55.0000 140.0000-440.0000 MPV (test code = MPV) 8.0000 fL 6.8000-10.6000 [id number] 09:23:00 Test Item Value Reference Range Comments Creatinine (test code = Creatinine) 1.1000 mg/dL 0.5000-1.200 0 Cr Clearance (Est) (test code = Cr 60.5700 75.0000-115.0 000 Clearance (Est)) Glucose (test code = Glucose) 121.0000 mg/dL 70.0000-118.0000 BUN (test code = BUN) 26.0000 mg/dL 7.0000-22.0000 Sodium (test code = Sodium) 137.0000 mmol/L 128.0000-145.0000 Potassium (test code = Potassium) 4.8000 mmol/L 3.6000-5.1000 Chloride (test code = Chloride) 107.0000 mmol/L 96.0000-108.0000 CO2 (test code = CO2) 25.0000 mmol/L 18.0000-33.0000 Calcium (test code = Calcium) 8.9000 mg/dL 8.0000-10.3000 Alkaline Phosphatase (test code = Alkaline 32.0000 42.00 00-141.0000 Phosphatase) ALT (SGPT) (test code = ALT (SGPT)) 15.0000 10.0000-47.0 000 AST (SGOT) (test code = AST (SGOT)) 21.0000 11.0000-37.0 000 Bilirubin, Total (test code = Bilirubin, 0.5000 mg/dL 0.0000- 1.6000 Total) Albumin (test code = Albumin) 3.9000 g/dL 3.5000-5.5000 Protein, Total (test code = Protein, 6.0000 g/dL 6.4000-8.10 00 Total) eGFR -Macanese (test code = eGFR 58.0000 60.0000- 200.0000 -Macanese) eGFR Ksv-Zfslhdu-Oeyzwbxr (test code = 48.0000 60.0000-2 00.0000 eGFR Aur-Nnfyfoo-Hzqlihev) [id number] 08:28:00 Test Item Value Reference Range Comments WBC (test code = WBC) 3.0000 4.0000-10.0000 Lymphocytes % (test code = Lymphocytes %) 12.5000 % 22.400 0-43.6000 MID% (test code = MID%) 5.0000 % 1.2000-11.2000 Neutrophils % (test code = Neutrophils %) 82.5000 % 48.900 0-69.9000 Lymphocytes (test code = Lymphocytes) 0.3000 1.2000-3.2 000 MID (test code = MID) 0.2000 0.1000-1.1000 Neutrophils (test code = Neutrophils) 2.5000 1.5000-6.7 000 RBC (test code = RBC) 2.4700 3.7000-4.9000 HGB (test code = HGB) 8.3000 g/dL 11.2000-18.0000 HCT (test code = HCT) 25.3000 % 34.0000-44.0000 MCV (test code = MCV) 102.8000 fL 80.0000-94.0000 MCH (test code = MCH) 33.6000 pg 27.0000-34.0000 MCHC (test code = MCHC) 32.6000 g/dL 31.5000-36.0000 RDW (test code = RDW) 20.9000 11.0000-18.0000 PLT (test code = PLT) 97.0000 140.0000-440.0000 MPV (test code = MPV) 8.0000 fL 6.8000-10.6000 [id number] 08:28:00 Test Item Value Reference Range Comments Creatinine (test code = Creatinine) 0.9000 mg/dL 0.5000-1.200 0 Cr Clearance (Est) (test code = Cr 75.9300 75.0000-115.0 000 Clearance (Est)) Glucose (test code = Glucose) 127.0000 mg/dL 70.0000-118.0000 BUN (test code = BUN) 23.0000 mg/dL 7.0000-22.0000 Sodium (test code = Sodium) 140.0000 mmol/L 128.0000-145.0000 Potassium (test code = Potassium) 4.5000 mmol/L 3.6000-5.1000 Chloride (test code = Chloride) 104.0000 mmol/L 96.0000-108.0000 CO2 (test code = CO2) 27.0000 mmol/L 18.0000-33.0000 Calcium (test code = Calcium) 9.7000 mg/dL 8.0000-10.3000 Alkaline Phosphatase (test code = Alkaline 40.0000 42.00 00-141.0000 Phosphatase) ALT (SGPT) (test code = ALT (SGPT)) 23.0000 10.0000-47.0 000 AST (SGOT) (test code = AST (SGOT)) 31.0000 11.0000-37.0 000 Bilirubin, Total (test code = Bilirubin, 0.6000 mg/dL 0.0000- 1.6000 Total) Albumin (test code = Albumin) 3.5000 g/dL 3.5000-5.5000 Protein, Total (test code = Protein, 6.6000 g/dL 6.4000-8.10 00 Total) eGFR -Macanese (test code = eGFR 74.0000 60.0000- 200.0000 -Macanese) eGFR Cze-Ffmyolw-Eurprjsd (test code = 61.0000 60.0000-2 00.0000 eGFR Prn-Frhfchh-Pbzaugzp) [id number] 08:29:00 Test Item Value Reference Range Comments WBC (test code = WBC) 3.6000 4.0000-10.0000 Lymphocytes % (test code = Lymphocytes %) 17.3000 % 22.400 0-43.6000 MID% (test code = MID%) 4.7000 % 1.2000-11.2000 Neutrophils % (test code = Neutrophils %) 78.0000 % 48.900 0-69.9000 Lymphocytes (test code = Lymphocytes) 0.6000 1.2000-3.2 000 MID (test code = MID) 0.2000 0.1000-1.1000 Neutrophils (test code = Neutrophils) 2.8000 1.5000-6.7 000 RBC (test code = RBC) 2.5100 3.7000-4.9000 HGB (test code = HGB) 8.2000 g/dL 11.2000-18.0000 HCT (test code = HCT) 25.5000 % 34.0000-44.0000 MCV (test code = MCV) 101.5000 fL 80.0000-94.0000 MCH (test code = MCH) 32.9000 pg 27.0000-34.0000 MCHC (test code = MCHC) 32.4000 g/dL 31.5000-36.0000 RDW (test code = RDW) 20.9000 11.0000-18.0000 PLT (test code = PLT) 145.0000 140.0000-440.0000 MPV (test code = MPV) 7.9000 fL 6.8000-10.6000 [id number] 08:29:00 Test Item Value Reference Range Comments Creatinine (test code = Creatinine) 1.0000 mg/dL 0.5000-1.200 0 Cr Clearance (Est) (test code = Cr 67.8600 75.0000-115.0 000 Clearance (Est)) Glucose (test code = Glucose) 145.0000 mg/dL 70.0000-118.0000 BUN (test code = BUN) 24.0000 mg/dL 7.0000-22.0000 Sodium (test code = Sodium) 137.0000 mmol/L 128.0000-145.0000 Potassium (test code = Potassium) 4.4000 mmol/L 3.6000-5.1000 Chloride (test code = Chloride) 106.0000 mmol/L 96.0000-108.0000 CO2 (test code = CO2) 28.0000 mmol/L 18.0000-33.0000 Calcium (test code = Calcium) 9.1200 mg/dL 8.0000-10.3000 Alkaline Phosphatase (test code = Alkaline 33.0000 42.00 00-141.0000 Phosphatase) ALT (SGPT) (test code = ALT (SGPT)) 14.0000 10.0000-47.0 000 AST (SGOT) (test code = AST (SGOT)) 20.0000 11.0000-37.0 000 Bilirubin, Total (test code = Bilirubin, 0.4000 mg/dL 0.0000- 1.6000 Total) Albumin (test code = Albumin) 4.0000 g/dL 3.5000-5.5000 Protein, Total (test code = Protein, 6.0000 g/dL 6.4000-8.10 00 Total) eGFR -Macanese (test code = eGFR 65.0000 60.0000- 200.0000 -Macanese) eGFR Edq-Kafekul-Vbmenovq (test code = 54.0000 60.0000-2 00.0000 eGFR Oiw-Feqripe-Detjgwwb) [id number] 08:39:00 Test Item Value Reference Range Comments WBC (test code = WBC) 2.7000 4.0000-10.0000 Lymphocytes % (test code = Lymphocytes %) 18.5000 % 22.400 0-43.6000 MID% (test code = MID%) 6.9000 % 1.2000-11.2000 Neutrophils % (test code = Neutrophils %) 74.6000 % 48.900 0-69.9000 Lymphocytes (test code = Lymphocytes) 0.5000 1.2000-3.2 000 MID (test code = MID) 0.2000 0.1000-1.1000 Neutrophils (test code = Neutrophils) 2.0000 1.5000-6.7 000 RBC (test code = RBC) 2.1800 3.7000-4.9000 HGB (test code = HGB) 8.0000 g/dL 11.2000-18.0000 HCT (test code = HCT) 21.3000 % 34.0000-44.0000 MCV (test code = MCV) 97.5000 fL 80.0000-94.0000 MCH (test code = MCH) 36.7000 pg 27.0000-34.0000 MCHC (test code = MCHC) 37.6000 g/dL 31.5000-36.0000 RDW (test code = RDW) 19.1000 11.0000-18.0000 PLT (test code = PLT) 97.0000 140.0000-440.0000 MPV (test code = MPV) 7.8000 fL 6.8000-10.6000 [id number] 08:39:00 Test Item Value Reference Range Comments Creatinine (test code = Creatinine) 0.9000 mg/dL 0.5000-1.200 0 Cr Clearance (Est) (test code = Cr 76.2400 75.0000-115.0 000 Clearance (Est)) Glucose (test code = Glucose) 106.0000 mg/dL 70.0000-118.0000 BUN (test code = BUN) 23.0000 mg/dL 7.0000-22.0000 Sodium (test code = Sodium) 138.0000 mmol/L 128.0000-145.0000 Potassium (test code = Potassium) 4.8000 mmol/L 3.6000-5.1000 Chloride (test code = Chloride) 107.0000 mmol/L 96.0000-108.0000 CO2 (test code = CO2) 29.0000 mmol/L 18.0000-33.0000 Calcium (test code = Calcium) 9.0100 mg/dL 8.0000-10.3000 Alkaline Phosphatase (test code = Alkaline 31.0000 42.00 00-141.0000 Phosphatase) ALT (SGPT) (test code = ALT (SGPT)) 15.0000 10.0000-47.0 000 AST (SGOT) (test code = AST (SGOT)) 22.0000 11.0000-37.0 000 Bilirubin, Total (test code = Bilirubin, 0.3000 mg/dL 0.0000- 1.6000 Total) Albumin (test code = Albumin) 3.9000 g/dL 3.5000-5.5000 Protein, Total (test code = Protein, 5.9000 g/dL 6.4000-8.10 00 Total) eGFR -Macanese (test code = eGFR 74.0000 60.0000- 200.0000 -Macanese) eGFR Ifq-Mqygrqg-Fbgulixp (test code = 61.0000 60.0000-2 00.0000 eGFR Rfu-Pdlniwp-Ckiiubzk) [id number] 08:50:00 Test Item Value Reference Range Comments WBC (test code = WBC) 2.8000 4.0000-10.0000 Lymphocytes % (test code = Lymphocytes %) 23.1000 % 22.400 0-43.6000 MID% (test code = MID%) 5.8000 % 1.2000-11.2000 Neutrophils % (test code = Neutrophils %) 71.1000 % 48.900 0-69.9000 Lymphocytes (test code = Lymphocytes) 0.6000 1.2000-3.2 000 MID (test code = MID) 0.2000 0.1000-1.1000 Neutrophils (test code = Neutrophils) 2.0000 1.5000-6.7 000 RBC (test code = RBC) 2.8400 3.7000-4.9000 HGB (test code = HGB) 9.1000 g/dL 11.2000-18.0000 HCT (test code = HCT) 27.5000 % 34.0000-44.0000 MCV (test code = MCV) 96.6000 fL 80.0000-94.0000 MCH (test code = MCH) 32.2000 pg 27.0000-34.0000 MCHC (test code = MCHC) 33.3000 g/dL 31.5000-36.0000 RDW (test code = RDW) 18.8000 11.0000-18.0000 PLT (test code = PLT) 181.0000 140.0000-440.0000 MPV (test code = MPV) 7.3000 fL 6.8000-10.6000 [id number] 08:48:00 Test Item Value Reference Range Comments Creatinine (test code = Creatinine) 1.0000 mg/dL 0.5000-1.200 0 Cr Clearance (Est) (test code = Cr 67.1700 75.0000-115.0 000 Clearance (Est)) Glucose (test code = Glucose) 164.0000 mg/dL 70.0000-118.0000 BUN (test code = BUN) 29.0000 mg/dL 7.0000-22.0000 Sodium (test code = Sodium) 137.0000 mmol/L 128.0000-145.0000 Potassium (test code = Potassium) 4.3000 mmol/L 3.6000-5.1000 Chloride (test code = Chloride) 106.0000 mmol/L 96.0000-108.0000 CO2 (test code = CO2) 30.0000 mmol/L 18.0000-33.0000 Calcium (test code = Calcium) 9.8200 mg/dL 8.0000-10.3000 Alkaline Phosphatase (test code = Alkaline 34.0000 42.00 00-141.0000 Phosphatase) ALT (SGPT) (test code = ALT (SGPT)) 14.0000 10.0000-47.0 000 AST (SGOT) (test code = AST (SGOT)) 17.0000 11.0000-37.0 000 Bilirubin, Total (test code = Bilirubin, 0.5000 mg/dL 0.0000- 1.6000 Total) Albumin (test code = Albumin) 3.9000 g/dL 3.5000-5.5000 Protein, Total (test code = Protein, 5.9000 g/dL 6.4000-8.10 00 Total) eGFR -Macanese (test code = eGFR 65.0000 60.0000- 200.0000 -Macanese) eGFR Ksz-Uebswsn-Ybjearpv (test code = 54.0000 60.0000-2 00.0000 eGFR Vkn-Ofbdzdp-Kudoqmdv) [id number] 10:45:00 Test Item Value Reference Range Comments Creatinine (test code = Creatinine) 1.0000 mg/dL 0.5000-1.200 0 Cr Clearance (Est) (test code = Cr 68.5000 75.0000-115.0 000 Clearance (Est)) Glucose (test code = Glucose) 117.0000 mg/dL 70.0000-118.0000 BUN (test code = BUN) 23.0000 mg/dL 7.0000-22.0000 Sodium (test code = Sodium) 136.0000 mmol/L 128.0000-145.0000 Potassium (test code = Potassium) 4.4000 mmol/L 3.6000-5.1000 Chloride (test code = Chloride) 108.0000 mmol/L 96.0000-108.0000 CO2 (test code = CO2) 29.0000 mmol/L 18.0000-33.0000 Calcium (test code = Calcium) 8.7600 mg/dL 8.0000-10.3000 Alkaline Phosphatase (test code = Alkaline 38.0000 42.00 00-141.0000 Phosphatase) ALT (SGPT) (test code = ALT (SGPT)) 15.0000 10.0000-47.0 000 AST (SGOT) (test code = AST (SGOT)) 20.0000 11.0000-37.0 000 Bilirubin, Total (test code = Bilirubin, 0.4000 mg/dL 0.0000- 1.6000 Total) Albumin (test code = Albumin) 3.8000 g/dL 3.5000-5.5000 Protein, Total (test code = Protein, 5.9000 g/dL 6.4000-8.10 00 Total) eGFR -Macanese (test code = eGFR 65.0000 60.0000- 200.0000 -Macanese) eGFR Mqm-Zvdxhna-Migxygek (test code = 54.0000 60.0000-2 00.0000 eGFR Mxy-Xhtnuie-Gidyrffo) [id number] 10:44:00 Test Item Value Reference Range Comments WBC (test code = WBC) 3.2000 4.0000-10.0000 Lymphocytes % (test code = Lymphocytes %) 26.1000 % 22.400 0-43.6000 MID% (test code = MID%) 8.2000 % 1.2000-11.2000 Neutrophils % (test code = Neutrophils %) 65.7000 % 48.900 0-69.9000 Lymphocytes (test code = Lymphocytes) 0.8000 1.2000-3.2 000 MID (test code = MID) 0.3000 0.1000-1.1000 Neutrophils (test code = Neutrophils) 2.1000 1.5000-6.7 000 RBC (test code = RBC) 3.0800 3.7000-4.9000 HGB (test code = HGB) 9.0000 g/dL 11.2000-18.0000 HCT (test code = HCT) 29.4000 % 34.0000-44.0000 MCV (test code = MCV) 95.3000 fL 80.0000-94.0000 MCH (test code = MCH) 29.4000 pg 27.0000-34.0000 MCHC (test code = MCHC) 30.8000 g/dL 31.5000-36.0000 RDW (test code = RDW) 18.4000 11.0000-18.0000 PLT (test code = PLT) 227.0000 140.0000-440.0000 MPV (test code = MPV) 7.2000 fL 6.8000-10.6000 [id number] 13:30:00 Test Item Value Reference Range Comments WBC (test code = WBC) 15.6000 4.0000-10.0000 Lymphocytes % (test code = Lymphocytes %) 16.4000 % 22.400 0-43.6000 MID% (test code = MID%) 5.9000 % 1.2000-11.2000 Neutrophils % (test code = Neutrophils %) 77.7000 % 48.900 0-69.9000 Lymphocytes (test code = Lymphocytes) 2.5000 1.2000-3.2 000 MID (test code = MID) 1.0000 0.1000-1.1000 Neutrophils (test code = Neutrophils) 12.1000 1.5000-6.7 000 RBC (test code = RBC) 3.0200 3.7000-4.9000 HGB (test code = HGB) 9.3000 g/dL 11.2000-18.0000 HCT (test code = HCT) 28.3000 % 34.0000-44.0000 MCV (test code = MCV) 93.5000 fL 80.0000-94.0000 MCH (test code = MCH) 30.9000 pg 27.0000-34.0000 MCHC (test code = MCHC) 33.0000 g/dL 31.5000-36.0000 RDW (test code = RDW) 16.0000 11.0000-18.0000 PLT (test code = PLT) 40.0000 140.0000-440.0000 MPV (test code = MPV) 9.2000 fL 6.8000-10.6000 [id number] 15:24:00 Test Item Value Reference Range Comments Creatinine (test code = Creatinine) 1.2000 mg/dL 0.5000-1.200 0 Cr Clearance (Est) (test code = Cr 57.2600 75.0000-115.0 000 Clearance (Est)) Glucose (test code = Glucose) 105.0000 mg/dL 70.0000-118.0000 BUN (test code = BUN) 31.0000 mg/dL 7.0000-22.0000 Sodium (test code = Sodium) 136.0000 mmol/L 128.0000-145.0000 Potassium (test code = Potassium) 4.3000 mmol/L 3.6000-5.1000 Chloride (test code = Chloride) 107.0000 mmol/L 96.0000-108.0000 CO2 (test code = CO2) 28.0000 mmol/L 18.0000-33.0000 Calcium (test code = Calcium) 8.9700 mg/dL 8.0000-10.3000 Alkaline Phosphatase (test code = Alkaline 52.0000 42.00 00-141.0000 Phosphatase) ALT (SGPT) (test code = ALT (SGPT)) 14.0000 10.0000-47.0 000 AST (SGOT) (test code = AST (SGOT)) 25.0000 11.0000-37.0 000 Bilirubin, Total (test code = Bilirubin, 0.6000 mg/dL 0.0000- 1.6000 Total) Albumin (test code = Albumin) 3.9000 g/dL 3.5000-5.5000 Protein, Total (test code = Protein, 5.8000 g/dL 6.4000-8.10 00 Total) eGFR -Macanese (test code = eGFR 53.0000 60.0000- 200.0000 -Macanese) eGFR Fai-Vcilqel-Epivordc (test code = 44.0000 60.0000-2 00.0000 eGFR Hxr-Osdrorb-Qdanboxi) [id number] 15:20:00 Test Item Value Reference Range Comments WBC (test code = WBC) 0.7000 4.0000-10.0000 Lymphocytes % (test code = Lymphocytes %) 72.3000 % 22.400 0-43.6000 MID% (test code = MID%) 8.6000 % 1.2000-11.2000 Neutrophils % (test code = Neutrophils %) 19.1000 % 48.900 0-69.9000 Lymphocytes (test code = Lymphocytes) 0.5000 1.2000-3.2 000 MID (test code = MID) 0.1000 0.1000-1.1000 Neutrophils (test code = Neutrophils) 0.1000 1.5000-6.7 000 RBC (test code = RBC) 2.3900 3.7000-4.9000 HGB (test code = HGB) 7.6000 g/dL 11.2000-18.0000 HCT (test code = HCT) 22.6000 % 34.0000-44.0000 MCV (test code = MCV) 94.3000 fL 80.0000-94.0000 MCH (test code = MCH) 31.7000 pg 27.0000-34.0000 MCHC (test code = MCHC) 33.6000 g/dL 31.5000-36.0000 RDW (test code = RDW) 16.4000 11.0000-18.0000 PLT (test code = PLT) 202.0000 140.0000-440.0000 MPV (test code = MPV) 7.0000 fL 6.8000-10.6000 [id number] 10:57:00 Test Item Value Reference Range Comments WBC (test code = WBC) 8.4000 4.0000-10.0000 Lymphocytes % (test code = Lymphocytes %) 22.4000 % 22.400 0-43.6000 MID% (test code = MID%) 6.7000 % 1.2000-11.2000 Neutrophils % (test code = Neutrophils %) 70.9000 % 48.900 0-69.9000 Lymphocytes (test code = Lymphocytes) 1.8000 1.2000-3.2 000 MID (test code = MID) 0.7000 0.1000-1.1000 Neutrophils (test code = Neutrophils) 5.9000 1.5000-6.7 000 RBC (test code = RBC) 2.8300 3.7000-4.9000 HGB (test code = HGB) 8.6000 g/dL 11.2000-18.0000 HCT (test code = HCT) 27.2000 % 34.0000-44.0000 MCV (test code = MCV) 95.9000 fL 80.0000-94.0000 MCH (test code = MCH) 30.5000 pg 27.0000-34.0000 MCHC (test code = MCHC) 31.8000 g/dL 31.5000-36.0000 RDW (test code = RDW) 16.4000 11.0000-18.0000 PLT (test code = PLT) 699.0000 140.0000-440.0000 MPV (test code = MPV) 7.1000 fL 6.8000-10.6000 [id number] 10:57:00 Test Item Value Reference Range Comments Creatinine (test code = Creatinine) 1.1000 mg/dL 0.5000-1.200 0 Cr Clearance (Est) (test code = Cr 62.4600 75.0000-115.0 000 Clearance (Est)) Glucose (test code = Glucose) 113.0000 mg/dL 70.0000-118.0000 BUN (test code = BUN) 24.0000 mg/dL 7.0000-22.0000 Sodium (test code = Sodium) 137.0000 mmol/L 128.0000-145.0000 Potassium (test code = Potassium) 5.0000 mmol/L 3.6000-5.1000 Chloride (test code = Chloride) 106.0000 mmol/L 96.0000-108.0000 CO2 (test code = CO2) 28.0000 mmol/L 18.0000-33.0000 Calcium (test code = Calcium) 9.2000 mg/dL 8.0000-10.3000 Alkaline Phosphatase (test code = Alkaline 43.0000 42.00 00-141.0000 Phosphatase) ALT (SGPT) (test code = ALT (SGPT)) 14.0000 10.0000-47.0 000 AST (SGOT) (test code = AST (SGOT)) 18.0000 11.0000-37.0 000 Bilirubin, Total (test code = Bilirubin, 0.2000 mg/dL 0.0000- 1.6000 Total) Albumin (test code = Albumin) 3.8000 g/dL 3.5000-5.5000 Protein, Total (test code = Protein, 6.0000 g/dL 6.4000-8.10 00 Total) eGFR -Macanese (test code = eGFR 59.0000 60.0000- 200.0000 -Macanese) eGFR Wnh-Mwsctyo-Qzhbgsmn (test code = 48.0000 60.0000-2 00.0000 eGFR Orx-Vfxdmyy-Hxjtjnin) [id number] 13:02:00 Test Item Value Reference Range Comments WBC (test code = WBC) 8.1000 4.0000-10.0000 Lymphocytes % (test code = Lymphocytes %) 24.3000 % 22.400 0-43.6000 MID% (test code = MID%) 7.8000 % 1.2000-11.2000 Neutrophils % (test code = Neutrophils %) 67.9000 % 48.900 0-69.9000 Lymphocytes (test code = Lymphocytes) 1.9000 1.2000-3.2 000 MID (test code = MID) 0.7000 0.1000-1.1000 Neutrophils (test code = Neutrophils) 5.5000 1.5000-6.7 000 RBC (test code = RBC) 2.6500 3.7000-4.9000 HGB (test code = HGB) 8.4000 g/dL 11.2000-18.0000 HCT (test code = HCT) 24.9000 % 34.0000-44.0000 MCV (test code = MCV) 93.9000 fL 80.0000-94.0000 MCH (test code = MCH) 32.0000 pg 27.0000-34.0000 MCHC (test code = MCHC) 34.1000 g/dL 31.5000-36.0000 RDW (test code = RDW) 14.7000 11.0000-18.0000 PLT (test code = PLT) 141.0000 140.0000-440.0000 MPV (test code = MPV) 8.4000 fL 6.8000-10.6000 [id number] 12:44:00 Test Item Value Reference Range Comments Creatinine (test code = Creatinine) 1.1900 mg/dL 0.5700-1.000 0 Cr Clearance (Est) (test code = Cr 57.9700 75.0000-115.0 000 Clearance (Est)) Glucose (test code = Glucose) 99.0000 mg/dL 65.0000-99.0000 BUN (test code = BUN) 24.0000 mg/dL 8.0000-27.0000 eGFR Gyr-Mnhowba-Yxdcmmqz (test code = 45.0000 eGFR Udj-Ubaomau-Tsgjfmdt) eGFR -Macanese (test code = eGFR 52.0000 -Macanese) BUN/Creat Ratio (test code = BUN/Creat 20.0000 12.0000-2 8.0000 Ratio) Sodium (test code = Sodium) 141.0000 mmol/L 134.0000-144.0000 Potassium (test code = Potassium) 4.8000 mmol/L 3.5000-5.2000 Chloride (test code = Chloride) 103.0000 mmol/L 96.0000-106.0000 CO2 (test code = CO2) 24.0000 mmol/L 20.0000-29.0000 Calcium (test code = Calcium) 9.6000 mg/dL 8.7000-10.3000 Protein, Total (test code = Protein, 6.9000 g/dL 6.0000-8.50 00 Total) Albumin (test code = Albumin) 4.0000 g/dL 3.5000-4.8000 Globulin (test code = Globulin) 2.9000 g/dL 1.5000-4.5000 A/G Ratio (test code = A/G Ratio) 1.4000 1.2000-2.2000 Bilirubin, Total (test code = Bilirubin, 0.2000 mg/dL 0.0000- 1.2000 Total) Alkaline Phosphatase (test code = Alkaline 54.0000 39.00 00-117.0000 Phosphatase) AST (SGOT) (test code = AST (SGOT)) 24.0000 0.0000-40.00 00 ALT (SGPT) (test code = ALT (SGPT)) 17.0000 0.0000-32.00 00 Iron, Total (test code = Iron, Total) 233.0000 27.0000-13 9.0000 TIBC (test code = TIBC) 401.0000 250.0000-450.0000 UIBC (test code = UIBC) 168.0000 118.0000-369.0000 % Iron Saturation (test code = % Iron 58.0000 % 15.0000-55 .0000 Saturation) Ferritin (test code = Ferritin) 512.0000 ng/mL 15.0000-150.0000 [id number] 10:23:00 Test Item Value Reference Range Comments WBC (test code = WBC) 6.3000 4.0000-10.0000 Lymphocytes % (test code = Lymphocytes %) 30.9000 % 22.400 0-43.6000 MID% (test code = MID%) 8.0000 % 1.2000-11.2000 Neutrophils % (test code = Neutrophils %) 61.1000 % 48.900 0-69.9000 Lymphocytes (test code = Lymphocytes) 1.9000 1.2000-3.2 000 MID (test code = MID) 0.6000 0.1000-1.1000 Neutrophils (test code = Neutrophils) 3.8000 1.5000-6.7 000 RBC (test code = RBC) 2.7500 3.7000-4.9000 HGB (test code = HGB) 8.7000 g/dL 11.2000-18.0000 HCT (test code = HCT) 25.9000 % 34.0000-44.0000 MCV (test code = MCV) 94.1000 fL 80.0000-94.0000 MCH (test code = MCH) 31.8000 pg 27.0000-34.0000 MCHC (test code = MCHC) 33.8000 g/dL 31.5000-36.0000 RDW (test code = RDW) 14.4000 11.0000-18.0000 PLT (test code = PLT) 40.0000 140.0000-440.0000 MPV (test code = MPV) 7.9000 fL 6.8000-10.6000 [id number] 10:01:00 Test Item Value Reference Range Comments WBC (test code = WBC) 5.7000 4.0000-10.0000 Lymphocytes % (test code = Lymphocytes %) 30.6000 % 22.400 0-43.6000 MID% (test code = MID%) 8.6000 % 1.2000-11.1999 Neutrophils % (test code = Neutrophils %) 60.8000 % 48.900 0-69.9000 Lymphocytes (test code = Lymphocytes) 1.7000 1.2000-3.2 000 MID (test code = MID) 0.5000 0.1000-1.1000 Neutrophils (test code = Neutrophils) 3.5000 1.5000-6.7 000 RBC (test code = RBC) 2.7300 3.7000-4.9000 HGB (test code = HGB) 8.3000 g/dL 11.2000-18.0000 HCT (test code = HCT) 25.7000 % 34.0000-44.0000 MCV (test code = MCV) 94.0000 fL 80.0000-94.0000 MCH (test code = MCH) 30.6000 pg 27.0000-34.0000 MCHC (test code = MCHC) 32.5000 g/dL 31.5000-36.0000 RDW (test code = RDW) 14.9000 11.0000-18.0000 PLT (test code = PLT) 35.0000 140.0000-440.0000 MPV (test code = MPV) [id number] 10:21:00 Test Item Value Reference Range Comments WBC (test code = WBC) 1.4000 4.0000-10.0000 Lymphocytes % (test code = Lymphocytes %) 53.7000 % 22.400 0-43.6000 MID% (test code = MID%) 10.8000 % 1.2000-11.1999 Neutrophils % (test code = Neutrophils %) 35.5000 % 48.900 0-69.9000 Lymphocytes (test code = Lymphocytes) 0.8000 1.2000-3.2 000 MID (test code = MID) 0.1000 0.1000-1.1000 Neutrophils (test code = Neutrophils) 0.5000 1.5000-6.7 000 RBC (test code = RBC) 2.9100 3.7000-4.9000 HGB (test code = HGB) 9.2000 g/dL 11.2000-18.0000 HCT (test code = HCT) 27.2000 % 34.0000-44.0000 MCV (test code = MCV) 93.5000 fL 80.0000-94.0000 MCH (test code = MCH) 31.6000 pg 27.0000-34.0000 MCHC (test code = MCHC) 33.8000 g/dL 31.5000-36.0000 RDW (test code = RDW) 15.3000 11.0000-18.0000 PLT (test code = PLT) 104.0000 140.0000-440.0000 MPV (test code = MPV) 8.3000 fL 6.8000-10.6000 [id number] 10:01:48 Test Item Value Reference Range Comments Creatinine (test code = Creatinine) 1.4000 mg/dL 0.5000-1.500 0 Cr Clearance (Est) (test code = Cr Clearance 49.2800 75. 0000-115.0000 (Est)) [id number] 08:35:00 Test Item Value Reference Range Comments WBC (test code = WBC) 5.6000 4.0000-10.0000 Lymphocytes % (test code = Lymphocytes %) 26.8000 % 22.400 0-43.6000 MID% (test code = MID%) 5.5000 % 1.2000-11.2000 Neutrophils % (test code = Neutrophils %) 67.7000 % 48.900 0-69.9000 Lymphocytes (test code = Lymphocytes) 1.5000 1.2000-3.2 000 MID (test code = MID) 0.3000 0.1000-1.1000 Neutrophils (test code = Neutrophils) 3.8000 1.5000-6.7 000 RBC (test code = RBC) 3.5400 3.7000-4.9000 HGB (test code = HGB) 10.8000 g/dL 11.2000-18.0000 HCT (test code = HCT) 33.8000 % 34.0000-44.0000 MCV (test code = MCV) 95.3000 fL 80.0000-94.0000 MCH (test code = MCH) 30.5000 pg 27.0000-34.0000 MCHC (test code = MCHC) 32.0000 g/dL 31.5000-36.0000 RDW (test code = RDW) 15.8000 11.0000-18.0000 PLT (test code = PLT) 352.0000 140.0000-440.0000 MPV (test code = MPV) 6.8000 fL 6.8000-10.6000 [id number] 08:35:00 Test Item Value Reference Range Comments Creatinine (test code = Creatinine) 1.4000 mg/dL 0.5000-1.200 0 Cr Clearance (Est) (test code = Cr 49.2800 75.0000-115.0 000 Clearance (Est)) Glucose (test code = Glucose) 129.0000 mg/dL 70.0000-118.0000 BUN (test code = BUN) 34.0000 mg/dL 7.0000-22.0000 Sodium (test code = Sodium) 138.0000 mmol/L 128.0000-145.0000 Potassium (test code = Potassium) 4.4000 mmol/L 3.6000-5.1000 Chloride (test code = Chloride) 106.0000 mmol/L 96.0000-108.0000 CO2 (test code = CO2) 26.0000 mmol/L 18.0000-33.0000 Calcium (test code = Calcium) 9.4600 mg/dL 8.0000-10.3000 Alkaline Phosphatase (test code = Alkaline 45.0000 42.00 00-141.0000 Phosphatase) ALT (SGPT) (test code = ALT (SGPT)) 13.0000 10.0000-47.0 000 AST (SGOT) (test code = AST (SGOT)) 19.0000 11.0000-37.0 000 Bilirubin, Total (test code = Bilirubin, 0.4000 mg/dL 0.0000- 1.6000 Total) Albumin (test code = Albumin) 4.1000 g/dL 3.5000-5.5000 Protein, Total (test code = Protein, 6.9000 g/dL 6.4000-8.10 00 Total) eGFR -Macanese (test code = eGFR 44.0000 60.0000- 200.0000 -Macanese) eGFR Skh-Vkrjpca-Rwztfris (test code = 37.0000 60.0000-2 00.0000 eGFR Chh-Ylbxrkk-Xouulsej) Assessments Condition Name Status Diagnosis Date Treating Clinici an Low back pain Active 2020-01-01 08:33:31 Lumbosacral spondylosis without Active 2020-01-02 09:45 :47 myelopathy Sacroiliac disorder Active 2020-01-02 09:45:50 Degeneration of lumbar intervertebral Active 2020-01-02 09:45:56 disc Lumbar radiculopathy Active 2020-01-02 09:47:38 Lumbar spondylolisthesis Active 2020-01-02 09:59:16 Low back pain Active 2019-10-09 08:58:30 Trochanteric bursitis Active 2019-10-09 09:12:20 Piriformis syndrome Active 2019-10-09 09:12:24 Lumbosacral spondylosis without Active 2019-10-09 09:12 :30 myelopathy Sacroiliac disorder Active 2019-10-09 09:12:33 Degeneration of lumbar intervertebral Active 2019-10-09 09:12:36 disc Low back pain Active 2019-06-20 08:31:04 Arthropathy of lumbar facet joint Active 2019-06-20 08: 43:01 Degeneration of lumbar intervertebral Active 2019-06-20 08:43:01 disc Lumbosacral spondylosis without Active 2019-06-20 08:43 :01 myelopathy Sacroiliac disorder Active 2019-06-20 08:43:01 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 2019-06-20 08:43: 01 Pain in bilateral legs Active 2019-06-13 10:53:44 Pain in left lower limb Active 2019-06-13 10:57:59 Lumbosacral spondylosis without Active 2019-06-13 10:57 :59 myelopathy Left-sided piriformis syndrome Active 2019-06-13 10:57: 59 Right-sided piriformis syndrome Active 2019-06-13 10:57 :59 Chronic pain syndrome Active 2019-06-13 10:57:59 Pain in left lower limb Active 2019-05-02 10:51:56 Pain in bilateral legs Active 2019-05-02 10:51:56 Lumbosacral spondylosis without Active 2019-05-02 10:51 :56 myelopathy Left-sided piriformis syndrome Active 2019-05-02 10:51: 56 Right-sided piriformis syndrome Active 2019-05-02 10:51 :56 Chronic pain syndrome Active 2019-05-02 10:51:56 Pain in left lower limb Active 2019-04-03 14:39:10 Pain in bilateral legs Active 2019-04-03 14:59:49 Lumbosacral spondylosis without Active 2019-04-03 16:37 :21 myelopathy Left-sided piriformis syndrome Active 2019-04-03 16:37: 26 Right-sided piriformis syndrome Active 2019-04-03 16:37 :32 Chronic pain syndrome Active 2019-04-03 16:37:42 Pain in left lower limb Active 2018-03-15 09:55:32 Stress fracture of tibia Active 2018-03-15 11:29:19 Encounters Start End Encounter Admission Attending Care Care Encounter Date/Time Date/Time Type Type Clinicians Facility Department ID 2020-01-02 2020-01-02 Arturo Light [id number] 00:00:00 00:00:00 Andrés DO: Surgical Surgical [id number] [address] [facility], [place] [address], Ph. 2019-12-18 2019-12-18 Outpatient Shoaib Vaz rn [id number] 00:00:00 00:00:00 [facility] [place] 2019-12-11 2019-12-11 Outpatient Shoaib Vaz rn [id number] 00:00:00 00:00:00 [facility] [place] 2019-12-04 2019-12-04 Outpatient Shoaib Vaz rn [id number] 00:00:00 00:00:00 [facility] [place] 2019-12-03 2019-12-03 Outpatient Shoaib Villarerik n [id number] 00:00:00 00:00:00 [facility] [place] 2019-11-09 2019-11-09 Outpatient Shoaib Villarerik n [id number] 00:00:00 00:00:00 [facility] [place] 2019-10-09 2019-10-09 Arturo Meridianantonio Light [id number] 00:00:00 00:00:00 Andrés DO: Surgical Surgical [id number] [address] [facility], [address], [place] [address], Ph. 2019-09-05 2019-09-05 Vaughn Shoaib Milton rn [id number] 00:00:00 00:00:00 Mary Camarillo [facility] [place] 2019-08-31 2019-08-31 Outpatient Shoaib Vaz rn [id number] 00:00:00 00:00:00 [facility] [place] 2019-08-07 2019-08-07 Outpatient Shoaib Cramer n [id number] 00:00:00 00:00:00 [facility] [place] 2019-06-20 2019-06-20 Arturo Solitarioeret [id number] 00:00:00 00:00:00 Andrés, DO: Surgical Surgical [id number] [address] [facility] [address], [address], [place] [address], Ph. 2019-06-13 2019-06-13 Arturo Solitarioeret [id number] 00:00:00 00:00:00 Andrés, DO: Surgical Surgical [id number] [address] [facility] [employer] [facility], [address], [place] [address], Ph. 2019 2019 Vaughn Shoaib Evans rn [id number] 00:00:00 00:00:00 Mary Camarillo [facility] [place] 2019-06-01 2019-06-01 Outpatient Shoaib Vaz rn [id number] 00:00:00 00:00:00 [facility] [place] 2019-05-30 2019-05-30 Outpatient Shoaib Cramer n [id number] 00:00:00 00:00:00 [facility] [place] 2019-05-08 2019-05-08 Outpatient Shoaib Vaz rn [id number] 00:00:00 00:00:00 [facility] [place] 2019-05-02 2019-05-02 Arturo Solitarioeret [id number] 00:00:00 00:00:00 Andrés, DO: Surgical Surgical [id number] [address] [facility] [employer] [facility], [address], [place] [address], Ph. 2019-04-23 2019-04-23 Outpatient Shoaib Cramer n [id number] 00:00:00 00:00:00 [facility] [place] 2019-04-03 2019-04-03 Arturo Meridian [facility] [id number] 00:00:00 00:00:00 Andrés, DO: Surgical Surgical [id number] [address] [facility], [address], [place] [address], Ph. 2019-03-30 2019-03-30 Outpatient Shoaib Vaz rn [id number] 00:00:00 00:00:00 [facility] [place] 2019-03-02 2019-03-02 Milind Vaz [facility] [id number] 00:00:00 00:00:00 Dr. Pranay Pires [facility] [place] 2019-02-27 2019-02-27 Outpatient Shoaib Vaz rn [id number] 00:00:00 00:00:00 [facility] On[facility] 2019-02-26 2019-02-26 Outpatient Shoaib Cramer n [id number] 00:00:00 00:00:00 [facility] Oncology Oncology [facility] 2019-02-21 2019-02-21 Outpatient Shoaib Vaz rn [id number] 00:00:00 00:00:00 [facility] 2019-02-13 2019-02-13 Outpatient Shoaib Cramer n [id number] 00:00:00 00:00:00 [facility] Medical Oncology Oncology [facility] 2019-01-30 2019-01-30 Outpatient Shoaib Vaz rn [id number] 00:00:00 00:00:00 [facility] 2019-01-16 2019-01-16 Outpatient Shoaib Cramer n [id number] 00:00:00 00:00:00 [facility] [place] 2019-01-12 2019-01-12 Outpatient Shoaib Vaz rn [id number] 00:00:00 00:00:00 [facility] 2019-01-02 2019-01-02 Milind Vaz [facility] [id number] 00:00:00 00:00:00 Dr. Pranay walls [facility] [place] 2018-12-29 2018-12-29 Outpatient Shoaib Vaz rn [id number] 00:00:00 00:00:00 [facility] 2018-12-27 2018-12-27 Outpatient Shoaib Cramer n [id number] 00:00:00 00:00:00 [facility] Oncology Oncology [facility] 2018-12-15 2018-12-15 Outpatient PrietoShoaib crawford Jose rn [id number] 00:00:00 00:00:00 [facility] Oncology Oncology [facility] 2018-12-01 2018-12-01 Outpatient Prietoyvette Shoaib Jose rn [id number] 00:00:00 00:00:00 [facility] Oncology Oncology [facility] 2018-11-17 2018-11-17 Outpatient PrietoShoaib crawford Jose rn [id number] 00:00:00 00:00:00 [facility] Oncology Oncology [facility] 2018-11-16 2018-11-16 Outpatient Shoaib Carmer n [id number] 00:00:00 00:00:00 [facility] Oncology Oncology [facility] 2018-11-15 2018-11-15 Milind Vaz [facility] [id number] 00:00:00 00:00:00 Dr. Pires [facility] Oncology Oncology [facility] 2018-11-09 2018-11-09 Outpatient Shoaib Cramer n [id number] 00:00:00 00:00:00 [facility] Oncology Oncology [facility] 2018-11-08 2018-11-08 Geronimoreggie [facility] [id number] 00:00:00 00:00:00 Dr. Pires [facility] Oncology Oncology [facility] 2018-10-17 2018-10-17 Outpatient PrietoyvetteShoaib rn [id number] 00:00:00 00:00:00 [facility] Oncology Oncology [facility] 2018-10-10 2018-10-10 Geronimo Haasreggie [facility] [id number] 00:00:00 00:00:00 Ella Kline Pranay [facility] Oncology Oncology [facility] 2018-10-03 2018-10-03 Outpatient Geronimoreggie Jianerik Garcia rn [id number] 00:00:00 00:00:00 [facility] Oncology Oncology [facility] 2018-09-26 2018-09-26 Outpatient Geronimoreggie Jianerik Garcia rn [id number] 00:00:00 00:00:00 [facility] Oncology Oncology [facility] 2018-09-19 2018-09-19 [facility] [id number] 00:00:00 00:00:00 Dr. Pranay Pires [facility] [place] 2018-09-12 2018-09-12 Outpatient Shoaib Vaz rn [id number] 00:00:00 00:00:00 [facility] [place] 2018-09-05 2018-09-05 Outpatient Shoaib Vaz rn [id number] 00:00:00 00:00:00 [facility] [place] 2018-09-01 2018-09-01 Outpatient Shoaib Cramer n [id number] 00:00:00 00:00:00 [facility] [place] 2018-08-29 2018-08-29 Milind Milind [facility] [id number] 00:00:00 00:00:00 Dr. Pranay Pires [facility] Oncology Oncology [facility] 2018-08-18 2018-08-18 [facility]imo [facility] [id number] 00:00:00 00:00:00 Dr. Pires Pranay [facility] [place] 2018-08-16 2018-08-16 Outpatient Shoaib Cramer n [id number] 00:00:00 00:00:00 [facility] Oncology Oncology [facility] 2018-08-10 2018-08-10 Outpatient Jian Jian n [id number] 00:00:00 00:00:00 [facility] Oncology Oncology [facility] 2018-08-04 2018-08-04 Dr. Milind Watts [facility] [id number] 00:00:00 00:00:00 Mary Pires [facility] Oncology Oncology [facility] 2018-08-02 2018-08-02 Outpatient Shoaib Vaz rn [id number] 00:00:00 [facility]00[facility] 2018-07-31 2018-07-31 Outpatient Shoaib Vaz rn [id number] 00:00:00 [facility]00[facility] 2018-07-28 2018-07-28 Dr. Milind Watts [facility] [id number] 00:00:00 00:00:00 [facility] Oncology Oncology [facility] 2018-07-26 2018-07-26 Outpatient Shoaib Vazvickie rn [id number] 00:00:00 00:00:00 [facility] Oncology Oncology [facility] 2018-07-24 2018-07-24 Outpatient Shoaib Vazvickie rn [id number] 00:00:00 00:00:00 [facility] Oncology Oncology [facility] 2018-07-21 2018-07-21 CaleMilind [facility] [id number] 00:00:00 00:00:00 Toshia EdmarLeilani [facility] Oncology Oncology [facility] 2018-07-19 2018-07-19 Outpatient Prietoyvette Shoaib Jose rn [id number] 00:00:00 00:00:00 [facility] Oncology Oncology [facility] 2018-07-18 2018-07-18 Outpatient Shoaib Villarerik n [id number] 00:00:00 00:00:00 [facility] Oncology Oncology [facility] 2018-07-17 2018-07-17 Milind Milind [facility] [id number] 00:00:00 00:00:00 [facility] 2018-07-14 2018-07-14 Outpatient Milind Shoaib Jose rn [id number] 00:00:00 00:00:00 [facility] Oncology Oncology [facility] 2018-07-11 2018-07-11 Outpatient Milind Shoaib Jose rn [id number] 00:00:00 00:00:00 [facility] Oncology Oncology [facility] 2018-07-10 2018-07-10 Outpatient Shoaib Villarerik n [id number] 00:00:00 00:00:00 [facility] Oncology Oncology [facility] 2018-07-07 2018-07-07 Waldo Milind [facility] [id number] 00:00:00 00:00:00 Ella Kline [facility] Oncology Oncology [facility] 2018-06-30 2018-06-30 Lamar Milind [facility] [id number] 00:00:00 00:00:00 Mrs. Pires [facility] Oncology Oncology [facility] 2018-06-23 2018-06-23 Outpatient GeronimoreggieShoaib rn [id number] 00:00:00 [facility]00[facility] [place] 2018-06-20 2018-06-20 Outpatient Shoaib Cramer n [id number] 00:00:00 00:00:00 [facility] Oncology [facility] [place] 2018-06-16 2018-06-16 [facility]ind [facility] [id number] 00:00:00 00:00:00 [facility] [place] 2018-06-09 2018-06-09 Milind Newton [facility] [id number] 00:00:00 00:00:00 Mrs. Pranay walls [facility] Oncology [facility] [place] 2018-06-05 2018-06-05 Milind Newton [facility] [id number] 00:00:00 00:00:00 Mrs. Pranay walls [facility] Oncology [facility] [place] 2018-05-29 2018-05-29 Outpatient Geronimoreggie Shoaib Jose rn [id number] 00:00:00 [facility]00[facility] [place] 2018-05-25 2018-05-25 Outpatient Shoaib Cramer n [id number] 00:00:00 00:00:00 [facility] Oncology [facility] [place] 2018-05-24 2018-05-24 Outpatient Shoaib Cramer n [id number] 00:00:00 00:00:00 [facility] Oncology [facility] [place] 2018-05-22 2018-05-22 Outpatient PrietoShoaib crawford Jose rn [id number] 00:00:00 00:00[facility]00 [facility] [place] 2018-05-17 2018-05-17 Outpatient Shoaib Cramer n [id number] 00:00:00 00:00:00 [facility] [place] 2018-05-15 2018-05-15 GeronimoJian paredes [facility] [id number] 00:00:00 00:00:00 Dr. Pranay walls [facility] [place] 2018-05-10 2018-05-10 Outpatient Geronimoreggie Shoaib Jiane rn [id number] 00:00:00 00:00:00 [facility] [place] 2018-05-08 2018-05-08 Outpatient Shoaib Vaze rn [id number] 00:00:00 00:00:00 [facility] [place] 2018-05-01 2018-05-01 Outpatient PrietoShoaib crawfordvickie rn [id number] 00:00:00 00:00:00 [facility] [place] 2018-04-28 2018-04-28 Outpatient Shoaib Cramer n [id number] 00:00:00 00:00:00 [facility] Oncology On[facility] [place] 2018-04-26 2018-04-26 Outpatient Prietoyvette Shoaib Villarvickie rn [id number] 00:00:00 00:00:00 [facility] [place] 2018-04-24 2018-04-24 Outpatient Shoaib Cramer n [id number] 00:00:00 00:00:00 [facility] Oncology [facility] [place] 2018-04-21 2018-04-21 Outpatient Milind Shoaib Villarvickie rn [id number] 00:00:00 00:00:00 [facility] On[facility] [place] 2018-04-20 2018-04-20 Outpatient Shoaib Cramer n [id number] 00:00:00 00:00:00 [facility] Oncology [facility] [place] 2018-04-07 2018-04-07 Milind Milind Shoaib [facility] [id number] 00:00:00 00:00:00 Dr. Pires [facility] Oncology Oncology [facility] [place] 2018-04-03 2018-04-03 Outpatient Shoaib Cramer n [id number] 00:00:00 00:00:00 [facility] Oncology On[facility] [place] 2018-03-28 2018-03-28 Outpatient Shoaib Cramer n [id number] 00:00:00 00:00:00 [facility] Oncology [facility] [place] 2018-03-21 2018-03-21 Lamar Milind Shoaib [facility] [id number] 00:00:00 00:00:00 Mrs. Pires [facility] Oncology [facility] [place] 2018-03-20 2018-03-20 Outpatient Shoaib Cramer n [id number] 00:00:00 00:00:00 [facility] Oncology [facility] [place] 2018-03-15 2018-03-15 Arturo Light [id number] 00:00:00 00:00:00 Andrés: Surgical Surgical [id number] [facility], [address], [place] [address], Ph. 2018-03-13 2018-03-13 Outpatient Shoaib Cramer n [id number] 00:00:00 00:00:00 [facility] Oncology Oncology [facility] 2017-11-16 2017-11-16 Outpatient Shoaib Cramer n [id number] 00:00:00 00:00:00 n [facility] Immunizations Ordered Immunization Filled Immunization Date Status Commen ts Refusal Reason Name Name influenza, 2019-01-23 Completed injectable, 00:00:00 quadrivalent influenza, 2017-02-07 Completed injectable, 00:00:00 quadrivalent Social History Smoking Status Start Date Stop Date Never Smoker Yes - but quit (former) 2019-12-18 00:00:00 2019-12-18 00:00 :00 Social History Observation Description Sex Female Vital Signs Vital Name Observation Time Observation Value Comments Height 2020-01-02 00:00:00 64 [in_i] BMI (Body Mass Index) 2020-01-02 00:00:00 34.3 kg/m2 Body Weight 2020-01-02 00:00:00 200 [lb_av] Body Weight 2019-10-09 00:00:00 200 [lb_av] Height 2019-10-09 00:00:00 64 [in_i] BMI (Body Mass Index) 2019-10-09 00:00:00 34.3 kg/m2 BP Diastolic 2019-06-20 00:00:00 62 mm[Hg] Height 2019-06-20 00:00:00 64 [in_i] BMI (Body Mass Index) 2019-06-20 00:00:00 34.3 kg/m2 BP Systolic 2019-06-20 00:00:00 140 mm[Hg] Body Weight 2019-06-20 00:00:00 200 [lb_av] BP Diastolic 2019-05-02 00:00:00 60 mm[Hg] Height 2019-05-02 00:00:00 64 [in_i] BP Systolic 2019-05-02 00:00:00 138 mm[Hg] BP Diastolic 2019-04-03 00:00:00 50 mm[Hg] Height 2019-04-03 00:00:00 64 [in_i] BMI (Body Mass Index) 2019-04-03 00:00:00 34.3 kg/m2 BP Systolic 2019-04-03 00:00:00 110 mm[Hg] Body Weight 2019-04-03 00:00:00 200 [lb_av] BP Diastolic 2018-03-15 00:00:00 74 mm[Hg] Height 2018-03-15 00:00:00 64 [in_i] BMI (Body Mass Index) 2018-03-15 00:00:00 34.3 kg/m2 BP Systolic 2018-03-15 00:00:00 145 mm[Hg] Body Weight 2018-03-15 00:00:00 200 [lb_av] BMI 2019-12-18 14:22:23 38.3700 BP leon 2019-12-18 14:22:23 52.0000 mm[Hg] Bdy height 2019-12-18 14:22:23 62.0000 [in_i] SaO2% BldA PulseOx 2019-12-18 14:22:23 97.0000 % Heart rate 2019-12-18 14:22:23 81.0000 /min Resp rate 2019-12-18 14:22:23 27.0000 /min BP sys 2019-12-18 14:22:23 136.0000 mm[Hg] Body temperature 2019-12-18 14:22:23 97.7000 [degF] Weight 2019-12-18 14:22:23 209.8000 [lb_av] Bdy height 2019-12-04 11:33:17 62.0000 [in_i] Body temperature 2019-12-04 11:33:17 97.8000 [degF] Bdy height 2019-08-31 10:14:50 62.0000 [in_i] Body temperature 2019-08-31 10:14:50 97.9000 [degF] BMI 2019 09:17:28 37.8200 BP leon 2019 09:17:28 58.0000 mm[Hg] Bdy height 2019 09:17:28 62.0000 [in_i] SaO2% BldA PulseOx 2019 09:17:28 98.0000 % Heart rate 2019 09:17:28 70.0000 /min Resp rate 2019 09:17:28 16.0000 /min BP sys 2019 09:17:28 165.0000 mm[Hg] Body temperature 2019 09:17:28 98.1000 [degF] Weight 2019 09:17:28 206.8000 [lb_av] BMI 2019-03-30 15:04:45 37.4200 BP leon 2019-03-30 15:04:45 51.0000 mm[Hg] Bdy height 2019-03-30 15:04:45 62.0000 [in_i] SaO2% BldA PulseOx 2019-03-30 15:04:45 98.0000 % Heart rate 2019-03-30 15:04:45 75.0000 /min Resp rate 2019-03-30 15:04:45 16.0000 /min BP sys 2019-03-30 15:04:45 114.0000 mm[Hg] Body temperature 2019-03-30 15:04:45 97.6000 [degF] Weight 2019-03-30 15:04:45 204.6000 [lb_av] BMI 2019-03-02 09:18:13 36.8400 BP leon 2019-03-02 09:18:13 58.0000 mm[Hg] Bdy height 2019-03-02 09:18:13 62.0000 [in_i] SaO2% BldA PulseOx 2019-03-02 09:18:13 97.0000 % Heart rate 2019-03-02 09:18:13 82.0000 /min Resp rate 2019-03-02 09:18:13 16.0000 /min BP sys 2019-03-02 09:18:13 132.0000 mm[Hg] Body temperature 2019-03-02 09:18:13 98.5000 [degF] Weight 2019-03-02 09:18:13 201.4000 [lb_av] BMI 2019-01-30 09:47:07 36.5800 BP leon 2019-01-30 09:47:07 67.0000 mm[Hg] Bdy height 2019-01-30 09:47:07 62.0000 [in_i] SaO2% BldA PulseOx 2019-01-30 09:47:07 99.0000 % Heart rate 2019-01-30 09:47:07 74.0000 /min Resp rate 2019-01-30 09:47:07 16.0000 /min BP sys 2019-01-30 09:47:07 133.0000 mm[Hg] Body temperature 2019-01-30 09:47:07 98.0000 [degF] Weight 2019-01-30 09:47:07 200.0000 [lb_av] BP sys 2019-01-02 09:13:30 121.0000 mm[Hg] Body temperature 2019-01-02 09:13:30 97.2000 [degF] Weight 2019-01-02 09:13:30 197.0000 [lb_av] BMI 2019-01-02 09:13:30 36.0300 BP leon 2019-01-02 09:13:30 54.0000 mm[Hg] Bdy height 2019-01-02 09:13:30 62.0000 [in_i] Heart rate 2019-01-02 09:13:30 83.0000 /min Resp rate 2019-01-02 09:13:30 20.0000 /min BMI 2018-12-15 09:43:00 36.2100 BP leon 2018-12-15 09:43:00 60.0000 mm[Hg] Bdy height 2018-12-15 09:43:00 62.0000 [in_i] SaO2% BldA PulseOx 2018-12-15 09:43:00 98.0000 % Heart rate 2018-12-15 09:43:00 74.0000 /min Resp rate 2018-12-15 09:43:00 16.0000 /min BP sys 2018-12-15 09:43:00 144.0000 mm[Hg] Body temperature 2018-12-15 09:43:00 98.4000 [degF] Weight 2018-12-15 09:43:00 198.0000 [lb_av] BMI 2018-12-01 09:58:58 36.7300 BP leon 2018-12-01 09:58:58 58.0000 mm[Hg] Bdy height 2018-12-01 09:58:58 62.0000 [in_i] SaO2% BldA PulseOx 2018-12-01 09:58:58 96.0000 % Heart rate 2018-12-01 09:58:58 74.0000 /min Resp rate 2018-12-01 09:58:58 18.0000 /min BP sys 2018-12-01 09:58:58 142.0000 mm[Hg] Body temperature 2018-12-01 09:58:58 98.5000 [degF] Weight 2018-12-01 09:58:58 200.8000 [lb_av] BMI 2018-11-15 10:30:41 36.4700 BP leon 2018-11-15 10:30:41 46.0000 mm[Hg] Bdy height 2018-11-15 10:30:41 62.0000 [in_i] Heart rate 2018-11-15 10:30:41 79.0000 /min Resp rate 2018-11-15 10:30:41 18.0000 /min BP sys 2018-11-15 10:30:41 118.0000 mm[Hg] Body temperature 2018-11-15 10:30:41 97.2000 [degF] Weight 2018-11-15 10:30:41 199.4000 [lb_av] BMI 2018-11-08 09:20:34 36.2900 BP leon 2018-11-08 09:20:34 67.0000 mm[Hg] Bdy height 2018-11-08 09:20:34 62.0000 [in_i] SaO2% BldA PulseOx 2018-11-08 09:20:34 98.0000 % Heart rate 2018-11-08 09:20:34 68.0000 /min Resp rate 2018-11-08 09:20:34 18.0000 /min BP sys 2018-11-08 09:20:34 149.0000 mm[Hg] Body temperature 2018-11-08 09:20:34 96.6000 [degF] Weight 2018-11-08 09:20:34 198.4000 [lb_av] BMI 2018-10-17 12:13:48 36.0300 BP leon 2018-10-17 12:13:48 49.0000 mm[Hg] Bdy height 2018-10-17 12:13:48 62.0000 [in_i] SaO2% BldA PulseOx 2018-10-17 12:13:48 99.0000 % Heart rate 2018-10-17 12:13:48 79.0000 /min Resp rate 2018-10-17 12:13:48 18.0000 /min BP sys 2018-10-17 12:13:48 124.0000 mm[Hg] Body temperature 2018-10-17 12:13:48 97.5000 [degF] Weight 2018-10-17 12:13:48 197.0000 [lb_av] BMI 2018-10-10 10:53:08 36.2500 BP leon 2018-10-10 10:53:08 55.0000 mm[Hg] Bdy height 2018-10-10 10:53:08 62.0000 [in_i] Heart rate 2018-10-10 10:53:08 86.0000 /min Resp rate 2018-10-10 10:53:08 18.0000 /min BP sys 2018-10-10 10:53:08 134.0000 mm[Hg] Body temperature 2018-10-10 10:53:08 96.5000 [degF] Weight 2018-10-10 10:53:08 198.2000 [lb_av] BMI 2018-09-26 11:18:28 35.9600 BP leon 2018-09-26 11:18:28 55.0000 mm[Hg] Bdy height 2018-09-26 11:18:28 62.0000 [in_i] SaO2% BldA PulseOx 2018-09-26 11:18:28 99.0000 % Heart rate 2018-09-26 11:18:28 83.0000 /min Resp rate 2018-09-26 11:18:28 16.0000 /min BP sys 2018-09-26 11:18:28 113.0000 mm[Hg] Body temperature 2018-09-26 11:18:28 97.8000 [degF] Weight 2018-09-26 11:18:28 196.6000 [lb_av] BMI 2018-09-19 09:11:09 36.1400 BP leon 2018-09-19 09:11:09 62.0000 mm[Hg] Bdy height 2018-09-19 09:11:09 62.0000 [in_i] Heart rate 2018-09-19 09:11:09 76.0000 /min Resp rate 2018-09-19 09:11:09 18.0000 /min BP sys 2018-09-19 09:11:09 136.0000 mm[Hg] Body temperature 2018-09-19 09:11:09 96.5000 [degF] Weight 2018-09-19 09:11:09 197.6000 [lb_av] BMI 2018-09-05 11:49:10 35.7000 BP leon 2018-09-05 11:49:10 65.0000 mm[Hg] Bdy height 2018-09-05 11:49:10 62.0000 [in_i] SaO2% BldA PulseOx 2018-09-05 11:49:10 96.0000 % Heart rate 2018-09-05 11:49:10 83.0000 /min Resp rate 2018-09-05 11:49:10 16.0000 /min BP sys 2018-09-05 11:49:10 121.0000 mm[Hg] Body temperature 2018-09-05 11:49:10 98.0000 [degF] Weight 2018-09-05 11:49:10 195.2000 [lb_av] BMI 2018-08-29 08:44:35 35.9200 BP leon 2018-08-29 08:44:35 67.0000 mm[Hg] Bdy height 2018-08-29 08:44:35 62.0000 [in_i] SaO2% BldA PulseOx 2018-08-29 08:44:35 98.0000 % Heart rate 2018-08-29 08:44:35 76.0000 /min Resp rate 2018-08-29 08:44:35 19.0000 /min BP sys 2018-08-29 08:44:35 151.0000 mm[Hg] Body temperature 2018-08-29 08:44:35 97.4000 [degF] Weight 2018-08-29 08:44:35 196.4000 [lb_av] BMI 2018-08-18 15:53:26 35.8100 BP leon 2018-08-18 15:53:26 64.0000 mm[Hg] Bdy height 2018-08-18 15:53:26 62.0000 [in_i] Heart rate 2018-08-18 15:53:26 77.0000 /min Resp rate 2018-08-18 15:53:26 18.0000 /min BP sys 2018-08-18 15:53:26 151.0000 mm[Hg] Body temperature 2018-08-18 15:53:26 98.4000 [degF] Weight 2018-08-18 15:53:26 195.8000 [lb_av] BMI 2018-07-31 15:46:53 35.8100 BP leon 2018-07-31 15:46:53 53.0000 mm[Hg] Bdy height 2018-07-31 15:46:53 62.0000 [in_i] SaO2% BldA PulseOx 2018-07-31 15:46:53 97.0000 % Heart rate 2018-07-31 15:46:53 80.0000 /min Resp rate 2018-07-31 15:46:53 20.0000 /min BP sys 2018-07-31 15:46:53 107.0000 mm[Hg] Body temperature 2018-07-31 15:46:53 98.4000 [degF] Weight 2018-07-31 15:46:53 195.8000 [lb_av] BMI 2018-07-28 09:34:07 35.2600 BP leon 2018-07-28 09:34:07 54.0000 mm[Hg] Bdy height 2018-07-28 09:34:07 62.0000 [in_i] Heart rate 2018-07-28 09:34:07 83.0000 /min Resp rate 2018-07-28 09:34:07 16.0000 /min BP sys 2018-07-28 09:34:07 130.0000 mm[Hg] Body temperature 2018-07-28 09:34:07 97.4000 [degF] Weight 2018-07-28 09:34:07 192.8000 [lb_av] BMI 2018-07-21 09:00:47 35.1200 BP leon 2018-07-21 09:00:47 56.0000 mm[Hg] Bdy height 2018-07-21 09:00:47 62.0000 [in_i] Heart rate 2018-07-21 09:00:47 85.0000 /min Resp rate 2018-07-21 09:00:47 22.0000 /min BP sys 2018-07-21 09:00:47 129.0000 mm[Hg] Body temperature 2018-07-21 09:00:47 97.8000 [degF] Weight 2018-07-21 09:00:47 192.0000 [lb_av] BMI 2018-07-14 09:12:30 35.7400 BP leon 2018-07-14 09:12:30 66.0000 mm[Hg] Bdy height 2018-07-14 09:12:30 62.0000 [in_i] Heart rate 2018-07-14 09:12:30 80.0000 /min Resp rate 2018-07-14 09:12:30 18.0000 /min BP sys 2018-07-14 09:12:30 134.0000 mm[Hg] Body temperature 2018-07-14 09:12:30 98.2000 [degF] Weight 2018-07-14 09:12:30 195.4000 [lb_av] BMI 2018-07-11 08:40:37 35.8500 BP leon 2018-07-11 08:40:37 59.0000 mm[Hg] Bdy height 2018-07-11 08:40:37 62.0000 [in_i] SaO2% BldA PulseOx 2018-07-11 08:40:37 96.0000 % Heart rate 2018-07-11 08:40:37 82.0000 /min Resp rate 2018-07-11 08:40:37 16.0000 /min BP sys 2018-07-11 08:40:37 129.0000 mm[Hg] Body temperature 2018-07-11 08:40:37 96.8000 [degF] Weight 2018-07-11 08:40:37 196.0000 [lb_av] BMI 2018-07-07 09:35:30 35.5600 BP leon 2018-07-07 09:35:30 67.0000 mm[Hg] Bdy height 2018-07-07 09:35:30 62.0000 [in_i] Heart rate 2018-07-07 09:35:30 78.0000 /min Resp rate 2018-07-07 09:35:30 18.0000 /min BP sys 2018-07-07 09:35:30 148.0000 mm[Hg] Body temperature 2018-07-07 09:35:30 98.2000 [degF] Weight 2018-07-07 09:35:30 194.4000 [lb_av] BMI 2018-06-30 09:13:48 36.4700 BP leon 2018-06-30 09:13:48 63.0000 mm[Hg] Bdy height 2018-06-30 09:13:48 62.0000 [in_i] Heart rate 2018-06-30 09:13:48 86.0000 /min Resp rate 2018-06-30 09:13:48 18.0000 /min BP sys 2018-06-30 09:13:48 144.0000 mm[Hg] Body temperature 2018-06-30 09:13:48 98.1000 [degF] Weight 2018-06-30 09:13:48 199.4000 [lb_av] BMI 2018-06-23 09:17:26 36.2100 BP leon 2018-06-23 09:17:26 56.0000 mm[Hg] Bdy height 2018-06-23 09:17:26 62.0000 [in_i] SaO2% BldA PulseOx 2018-06-23 09:17:26 96.0000 % Heart rate 2018-06-23 09:17:26 78.0000 /min Resp rate 2018-06-23 09:17:26 20.0000 /min BP sys 2018-06-23 09:17:26 130.0000 mm[Hg] Body temperature 2018-06-23 09:17:26 97.2000 [degF] Weight 2018-06-23 09:17:26 198.0000 [lb_av] BMI 2018-06-16 09:19:00 36.6200 BP leon 2018-06-16 09:19:00 47.0000 mm[Hg] Bdy height 2018-06-16 09:19:00 62.0000 [in_i] Heart rate 2018-06-16 09:19:00 85.0000 /min Resp rate 2018-06-16 09:19:00 20.0000 /min BP sys 2018-06-16 09:19:00 125.0000 mm[Hg] Body temperature 2018-06-16 09:19:00 97.9000 [degF] Weight 2018-06-16 09:19:00 200.2000 [lb_av] BMI 2018-06-09 09:10:40 35.8500 BP leon 2018-06-09 09:10:40 54.0000 mm[Hg] Bdy height 2018-06-09 09:10:40 62.0000 [in_i] SaO2% BldA PulseOx 2018-06-09 09:10:40 95.0000 % Heart rate 2018-06-09 09:10:40 78.0000 /min Resp rate 2018-06-09 09:10:40 16.0000 /min BP sys 2018-06-09 09:10:40 130.0000 mm[Hg] Body temperature 2018-06-09 09:10:40 97.2000 [degF] Weight 2018-06-09 09:10:40 196.0000 [lb_av] BMI 2018-06-05 11:08:10 36.0000 BP leon 2018-06-05 11:08:10 45.0000 mm[Hg] Bdy height 2018-06-05 11:08:10 62.0000 [in_i] Heart rate 2018-06-05 11:08:10 77.0000 /min Resp rate 2018-06-05 11:08:10 20.0000 /min BP sys 2018-06-05 11:08:10 110.0000 mm[Hg] Body temperature 2018-06-05 11:08:10 96.4000 [degF] Weight 2018-06-05 11:08:10 196.8000 [lb_av] BMI 2018-05-15 11:14:24 36.1100 BP leon 2018-05-15 11:14:24 45.0000 mm[Hg] Bdy height 2018-05-15 11:14:24 62.0000 [in_i] SaO2% BldA PulseOx 2018-05-15 11:14:24 96.0000 % Heart rate 2018-05-15 11:14:24 82.0000 /min Resp rate 2018-05-15 11:14:24 20.0000 /min BP sys 2018-05-15 11:14:24 115.0000 mm[Hg] Body temperature 2018-05-15 11:14:24 97.8000 [degF] Weight 2018-05-15 11:14:24 197.4000 [lb_av] BMI 2018-04-24 08:54:00 36.2500 BP leon 2018-04-24 08:54:00 65.0000 mm[Hg] Bdy height 2018-04-24 08:54:00 62.0000 [in_i] SaO2% BldA PulseOx 2018-04-24 08:54:00 95.0000 % Heart rate 2018-04-24 08:54:00 72.0000 /min Resp rate 2018-04-24 08:54:00 20.0000 /min BP sys 2018-04-24 08:54:00 143.0000 mm[Hg] Body temperature 2018-04-24 08:54:00 96.5000 [degF] Weight 2018-04-24 08:54:00 198.2000 [lb_av] BMI 2018-04-07 09:44:32 36.1100 BP leon 2018-04-07 09:44:32 57.0000 mm[Hg] Bdy height 2018-04-07 09:44:32 62.0000 [in_i] SaO2% BldA PulseOx 2018-04-07 09:44:32 98.0000 % Heart rate 2018-04-07 09:44:32 74.0000 /min Resp rate 2018-04-07 09:44:32 18.0000 /min BP sys 2018-04-07 09:44:32 167.0000 mm[Hg] Body temperature 2018-04-07 09:44:32 97.3000 [degF] Weight 2018-04-07 09:44:32 197.4000 [lb_av] BMI 2018-03-21 09:14:58 35.5900 BP leon 2018-03-21 09:14:58 59.0000 mm[Hg] Bdy height 2018-03-21 09:14:58 62.0000 [in_i] Heart rate 2018-03-21 09:14:58 76.0000 /min Resp rate 2018-03-21 09:14:58 18.0000 /min BP sys 2018-03-21 09:14:58 135.0000 mm[Hg] Body temperature 2018-03-21 09:14:58 97.2000 [degF] Weight 2018-03-21 09:14:58 194.6000 [lb_av] Hospital Discharge Instructions 1. Low back pain getting back to normal after low back pain: care instructions XR, lumbar spine 2. Lumbosacral spondylosis without myelopathy 3. Sacroiliac disorder sacroiliac joint pain: care instructions 4. Degeneration of lumbar intervertebral disc 5. Lumbar radiculopathy 6. Lumbar spondylolisthesis MRI, lumbar spine, w/o contrast Discussion Note: None recorded.1. Low back pain getting back to normal after low back pain: care instructions 2. Trochanteric bursitis 3. Piriformis syndrome piriformis syndrome: care instructions 4. Lumbosacral spondylosis without myelopathy 5. Sacroiliac disorder sacroiliac joint pain: care instructions 6. Degeneration of lumbar intervertebral disc Discussion Note: None recorded.1. Pain in bilateral legs 2. Pain in left lower limb 3. Lumbosacral spondylosis without myelopathy peripheral nerve block (PROC) 4. Left-sided piriformis syndrome 5. Right-sided piriformis syndrome6. Chronic pain syndrome Discussion Note: None recorded. Patient educational handouts: No information available.1. Pain in left lower limb 2. Pain in bilateral legs XR, tibia + fibula, 2 view 3. Lumbosacral spondylosis without myelopathy 4. Left-sided piriformis syndrome 5. Right-sided piriformis syndrome 6.Chronic pain syndrome Discussion Note Patient has been identified as high fall risk. Discussed with patient safe ambulatory measures. Patient indicates understanding. Patient educational handouts: No in formation available.1. Pain in left lower limb XR, tibia + fibula 2. Stress fracture of tibia Discussion Note: None recorded. Patient educational handouts: No information available.
== END ==
LOC: WI 08:42
PROVIDERS: ATTEND Family Medicine
DX: Z12.31 Encounter for screening mammogram for malignant neoplasm of breast (principal)
CPT/HCPCS: 77063; 77067

== ENCOUNTER → 2020-04-11 | Outpatient (CLI) | payer MEDICARE, OTHER ==
[2020-04-11 10:47] LABS: ALBUMIN 4.3 g/dL (3.5-5.0); ALKALINE PHOSPHATASE 47 U/L (38-126); ANION GAP 10 (5-19); ASPARTATE AMINO TRANSFERASE 33 U/L (14-36); BILIRUBIN,DIRECT 0.3 mg/dL (0.0-0.4); BILIRUBIN,TOTAL 0.5 mg/dL (0.2-1.3); BLOOD UREA NITROGEN 36 mg/dL (7-20); CALCIUM 10.1 mg/dL (8.4-10.2); CARBON DIOXIDE 28 mmol/L (22-30); CHLORIDE 101 mmol/L (98-107); CHOLESTEROL 165.22 mg/dL (0-200); GLUCOSE 120 mg/dL (75-110); POTASSIUM 4.9 mmol/L (3.6-5.0); TOTAL PROTEIN 7.4 g/dL (6.3-8.2); TRIGLYCERIDES 417 mg/dL (<150)
[2020-04-11 11:00] LABS: DIRECT LDL 85 mg/dL (<100)
[2020-04-12 12:37] LABS: CREATININE URINE 84.7 mg/dL (Not Estab.); MICROALBUMIN URINE 93.8 ug/mL (Not Estab.)
== END ==
LOC: OD 09:07
PROVIDERS: ATTEND Family Medicine
DX: E11.21 Type 2 diabetes mellitus with diabetic nephropathy (principal); E78.2 Mixed hyperlipidemia
CPT/HCPCS: 36415; 80053; 80061; 82043; 82570; 83036

== ENCOUNTER → 2020-04-21 | Outpatient (CLI) | payer MEDICARE, OTHER ==
--- NOTE | 2020-04-21 11:16 | RADIOLOGY REPORT (SQ) ---
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 Images reviewed with lung, soft tissue and bone windows. Reconstructed coronal and sagittal MPR and MIP images reviewed. All images stored on PACS. All CT scanners at this facility use dose modulation, iterative reconstruction, and/or weight based d osing when appropriate to reduce radiation dose to as low as reasonably achievable (ALARA). [facility]: Dose Right [facility]: CareDose [facility]: Dose Right [facility]: Teradose 4D [facility]: Smart VidRocket CONTRAST TYPE AND DOSE: See abdomen RENAL FUNCTION: Creatinine 1.4 RADIATION DOSE: . LIMITATIONS: None. FINDINGS: LUNGS AND PLEURA: Grossly stable right upper lobe mass abutting the right mediastinal bord er measuring 1.9 x 1.9 cm, previously 2.0 x 2.0 cm. Stable additional 6 mm right middle lobe pulmona ry nodule (series 6, image 39). Increased conspicuity of multiple centrilobular areas of nodular con solidation within the right middle lobe, largest has increased in size measuring 9.5 mm, previously 6 .4 mm (series 6, image 63). No new discrete pulmonary masses. Stable additional areas of linear sca rring and irregular consolidation within the right upper and superior right lower lobe (series 6, lilly ge 20 and series 6, image 38). No pleural effusion or pneumothorax. HILAR AND MEDIASTINAL STRUCTURES: No discrete mediastinal, hilar or axillary adenopathy. Unchanged r ight perihilar and suprahilar consolidation. Small area of circumferential wall thickening of the mi d esophagus, stable (series 2, image 17). HEART AND VASCULAR STRUCTURES: Normal heart size. No pericardial effusion. Scattered coronary ather osclerosis. HARDWARE: None in the chest. UPPER ABDOMEN: See separate report of the CT of the abdomen. THYROID AND OTHER SOFT TISSUES: No masses. No adenopathy. BONES: No acute bony abnormality. No suspicious lytic or blastic osseous lesions. OTHER: No other significant finding. IMPRESSION: 1. Stable post treatment change and previously described right upper lobe consolidation and right middle lobe pulmonary nodule. 2. Increased conspicuity of multiple centrilobular nodular opacities within the right middle lobe, l argest measuring 9.5 mm suggestive of infectious/ inflammatory process. 3. No other new discrete pulmonary masses or adenopathy. 4. Circumferential thickening of the mid esophagus, similar to prior. Findings may be related to es ophagitis although neoplasm is not excluded. Recommend correlation with patient history/ endoscopic findings. 5. See same-day abdominal CT for findings below the diaphragm. TECHNICAL DOCUMENTATION: JOB ID: [id number] Quality ID # [id number]: Final reports with documentation of one or more dose reduction techniques (e.g., Au tomated exposure control, adjustment of the mA and/or kV according to patient size, use of iterative reconstruction technique) 2010 [email or web address]- All Rights Reserved Reading location - IP/workstation name: [email or web address]
--- NOTE | 2020-04-21 12:45 | RADIOLOGY REPORT (SQ) ---
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 TECHNIQUE: CT scan of the abdomen performed with intravenous and without oral contrast using helical scanning technique with dynamic intravenous contrast injection. Images reviewed with lung, soft tiss ue, and bone windows. Reconstructed coronal and sagittal MPR images reviewed. Delayed images for eval uation of the urinary system also acquired and evaluated. All images stored on PACS. All CT scanners at this facility use dose modulation, iterative reconstruc tion, and/or weight based dosing when appropriate to reduce radiation dose to as low as reasonably ac hievable (ALARA). [facility]: Dose Right [facility]: CareDose [facility]: Dose Right [facility]: Teradose 4D [facility]: HackMyPic CONTRAST TYPE AND DOSE: contrast/concentration: Isovue 350.00 mmol/ml; Total Contrast Delivered: 100 .0 ml; Total Saline Delivered: 40.0 ml RENAL FUNCTION: Creatinine 1.36 RADIATION DOSE: CT Rad equipment meets quality standard of care and radiation dose reduction techniq ues were employed. CTDIvol: 14.0 - 22.1 mGy. DLP: 2416 mGy-cm. . LIMITATIONS: None. FINDINGS: LOWER CHEST: See separate report of the CT of the chest. LIVER: Decreased attenuation compatible with hepatic steatosis. No focal lesions. No ductal dilatio n. SPLEEN: Normal size. No focal lesions. PANCREAS: No masses. No significant calcifications. No adjacent inflammation or peripancreatic fluid collections. Pancreatic duct not dilated. GALLBLADDER: No identified stones by CT criteria. No inflammatory changes to suggest cholecystitis. ADRENAL GLANDS: No significant masses or asymmetry. RIGHT KIDNEY AND URETER: No solid masses. Small exophytic interpolar cyst. No significant calcific ations. No hydronephrosis or hydroureter. LEFT KIDNEY AND URETER: No solid masses. No significant calcifications. No hydronephrosis or hydr oureter. AORTA AND VESSELS: Aortoiliac atherosclerosis without aneurysm. No dissection. Renal arteries, SMA, c eliac without stenosis. RETROPERITONEUM: No retroperitoneal adenopathy, hemorrhage or masses. BOWEL AND PERITONEAL CAVITY: No evidence of intestinal obstruction. No focal bowel wall thickening. Scattered colonic diverticula. APPENDIX: Surgically absent. ABDOMINAL WALL: No masses. No hernias. BONES: No acute bony abnormality. No suspicious lytic or blastic osseous lesions. Lumbar facet arth ropathy. OTHER: No other significant finding. IMPRESSION: 1. No evidence metastatic disease within the abdomen or pelvis. 2. No evidence of acute intra-abdominal/pelvic process. 3. See same-day chest CT for findings above the diaphragm. TECHNICAL DOCUMENTATION: JOB ID: [id number] Quality ID # [id number]: Final reports with documentation of one or more dose reduction techniques (e.g., Au tomated exposure control, adjustment of the mA and/or kV according to patient size, use of iterative reconstruction technique) 2010 [employer]- All Rights Reserved Reading location - IP/workstation name: [email or web address]
== END ==
LOC: RAD 10:06
PROVIDERS: ATTEND Internal Medicine
DX: C34.11 Malignant neoplasm of upper lobe, right bronchus or lung (principal)
CPT/HCPCS: 71260; 74160